=== PATIENT | male | born 1980 | race Caucasian/White ===

== ENCOUNTER → 2017-05-01 | Outpatient (CLI) | payer BC ==
[~2017-05-01] MED LIST: MULTTAB PO; PEGSOL6 PO; SENN15CH6 PO
[2017-05-01 12:34] LABS: BASO % 0.8 %; BASO ABS # 0.04 K/uL (0-0.2); COMPLETE YES; HEMATOCRIT 56.9 % (42-52); IG% 0.2 %; LYMPH % 26.3 %; MEAN CELL VOLUME 89.9 fL (80-100); MEAN CORPUSCULAR HGB CONC 34.4 g/dl (32-36); MEAN PLATELET VOLUME 9.8 fL (7.4-10.4); MONO % 10.7 %; PLATELET COUNT 262 K/uL (130-400); RED BLOOD COUNT 6.33 M/uL (4.7-6.1); WHITE BLOOD COUNT 4.94 K/uL (4.8-10.8)
[2017-05-01 13:08] LABS: ALT/SGPT 65 U/L (12-78); BLOOD UREA NITROGEN 16 mg/dl (7-18); BUN/CREATININE RATIO 11.6 (10-20); CARBON DIOXIDE 27 mmol/L (21-32); CHLORIDE 107 mmol/L (98-107); CHOLESTEROL 257 mg/dl (0-200); GLUCOSE 106 mg/dl (70-99); POTASSIUM 4.4 mmol/L (3.5-5.1); SODIUM 139 mmol/L (136-145); TRIGLYCERIDES 115 mg/dl (0-150); VERY LOW DENSITY LIPOPROT CALC 23 mg/dl
[2017-05-01 13:16] LABS: ALKALINE PHOSPHATASE 81 U/L (45-117); AST/SGOT 38 U/L (15-37); CHOLESTEROL/HDL RATIO 8.3; HDL CHOLESTEROL 31 mg/dl; LDL CHOLESTEROL CALCULATED 203 mg/dl
== END | disposition home or self-care (01) ==
LOC: C.LABPVFM 07:31
PROVIDERS: ATTEND Family Medicine
DX: R68.82 Decreased libido (principal); E29.1 Testicular hypofunction; E34.9 Endocrine disorder, unspecified; R53.82 Chronic fatigue, unspecified

== ENCOUNTER → 2017-06-04 | Outpatient (CLI) | payer BC ==
[2017-06-04 13:20] LABS: ESTIMATED AVERAGE GLUCOSE 108 mg/dl; HA1C FLAG Normal (Normal)
== END | disposition home or self-care (01) ==
LOC: C.LABPVFM 10:16
PROVIDERS: ATTEND Neuromusculoskeletal Medicine & OMM
DX: R73.09 Other abnormal glucose (principal)

== ENCOUNTER → 2017-09-01 | Outpatient (CLI) | payer BC ==
[2017-09-01 18:04] LABS: THYROID STIMULATING HORMONE 4.61 uIu/ml (0.300-4.500)
== END | disposition home or self-care (01) ==
LOC: C.LABPVFM 16:13
PROVIDERS: ATTEND Neuromusculoskeletal Medicine & OMM
DX: E03.9 Hypothyroidism, unspecified (principal)

== ENCOUNTER → 2017-11-28 | Outpatient (CLI) | payer BC ==
[2017-11-28 13:15] LABS: ALBUMIN 3.6 gm/dl (3.4-5.0); ALT/SGPT 59 U/L (12-78); BLOOD UREA NITROGEN 16 mg/dl (7-18); CALCIUM 9.1 mg/dl (8.5-10.1); CARBON DIOXIDE 26 mmol/L (21-32); CHOLESTEROL 218 mg/dl (0-200); CREATININE 1.36 mg/dl (0.60-1.40); GLUCOSE 80 mg/dl (70-99); POTASSIUM 4.3 mmol/L (3.5-5.1); SODIUM 134 mmol/L (136-145)
[2017-11-28 13:18] LABS: ALKALINE PHOSPHATASE 65 U/L (45-117); AST/SGOT 42 U/L (15-37); LDL CHOLESTEROL CALCULATED 161 mg/dl; TOTAL PROTEIN 7.5 gm/dl (6.4-8.2)
== END | disposition home or self-care (01) ==
LOC: C.LABPVFM 07:32
PROVIDERS: ATTEND Neuromusculoskeletal Medicine & OMM
DX: E78.5 Hyperlipidemia, unspecified (principal)

== ENCOUNTER 2018-10-09 12:01 | Inpatient (IN) ==
[2018-10-09] MEDS ORDERED: SODIUM CHLORIDE 0.9% 1000ML 1,000 ML IV SCH (12:45)
--- NOTE | 2018-10-09 13:13 | XRay Report ---
KUB HISTORY: Acute generalized abdominal pain with abdominal bloating bloating, ab pain COMPARISON: CT abdomen and pelvis 12/09/2014. FINDINGS: The bowel gas pattern is non-obstructive. There is no organomegaly. No renal calculi. No u reteral calculi. No pneumoperitoneum or pneumatosis. Subsequent bone island of the proximal right fem ur. No fracture. IMPRESSION: Nonobstructive bowel gas pattern. Electronically signed by: Oleg Gilliland M.D. 10/09/2018 1:12 PM
[2018-10-09 13:20] LABS: Basophils # (auto) 0.03 K/uL (0-0.2); Basophils % (auto) 0.3 %; Eosinophils # (auto) 0.14 K/uL (0-0.5); Eosinophils % (auto) 1.5 %; Hemoglobin 18.5 g/dL (14.0-18.0); Immature Granulocytes # (auto) 0.04 K/uL (0.00-0.02); Immature Granulocytes % (auto) 0.4 %; Lymphocytes # (auto) 1.87 K/uL (1.2-3.4); Lymphocytes % (auto) 19.8 %; Mean Corpuscular Hgb Conc 33.6 g/dL (32-36); Mean Corpuscular Volume 89.7 fL (80-100); Mean Platelet Volume 9.7 fL (7.4-10.4); Monocytes # (auto) 0.95 K/uL (0.11-0.59); Monocytes % (auto) 10.1 %; Neutrophils # (auto) 6.42 K/uL (1.4-6.5); Neutrophils % (auto) 67.9 %; Platelet Count 335 K/uL (130-400); RDW Coefficient of Variation 16.3 % (11.5-14.5); RDW Standard Deviation 53.3 fL (36.4-46.3); Red Blood Count 6.13 M/uL (4.7-6.1); White Blood Count 9.45 K/uL (4.8-10.8)
[2018-10-09 13:27] LABS: Appearance Urine Clear (Clear); Bacteria Urine Automated Negative (Negative); Color Urine Orange; Glucose Urine UA Trace (Negative); Ketones Urine Trace (Negative); Leukocyte Esterase Urine Trace (Negative); Nitrite Urine Positive (Negative); Protein Urine 2+ (Negative); Specific Gravity Urine 1.033 (1.000-1.030); Urobilinogen Urine Negative (Negative); pH Urine 5.5 (4.5-7.5)
[2018-10-09 13:29] LABS: Bilirubin Urine 1+ (Negative); Ictotest Urine Positive (Negative)
[2018-10-09 13:36] LABS: Albumin Level 3.4 gm/dl (3.4-5.0); BUN Creatinine Ratio 8.7 (10-20); Calcium 9.4 mg/dl (8.5-10.1); Creatinine Clr Calc Pharmacy 83.1 ml/min; Est GFR (African American) 63.4; Est GFR (Non-African American) 54.7; Potassium 4.4 mmol/L (3.5-5.1)
[2018-10-09 13:40] LABS: Albumin Globulin Ratio 0.8 (0.9-2); Bilirubin,Total 1.7 mg/dl (0.2-1); Globulin 4.3 gm/dl (2.5-4.0); Total Protein 7.7 gm/dl (6.4-8.2); Troponin I 0.018 ng/ml (0-0.045)
--- NOTE | 2018-10-09 16:27 | Ultrasound Report ---
BILIARY ULTRASOUND CLINICAL HISTORY: Upper abdominal pain COMPARISON STUDY: 12/09/2014 FINDINGS: Visualization the pancreas is limited due to overlying bowel gas shadowing. No definite barros creatic abnormalities are visualized. The liver appears sonographically normal. There is no ductal di latation. The common bile duct measures 3 mm. Several gallbladder calculi are delineated. The common bile duct measures 3 mm. There is no right-sided hydronephrosis. IMPRESSION: 1. Cholelithiasis. Contracted gallbladder. 2. No ductal dilatation. Electronically signed by: Elliot Juares M.D. 10/09/2018 4:25 PM
[2018-10-09] MEDS ORDERED: SODIUM CHLORIDE 0.9% 1000ML 1,000 ML IV ONE (16:59)
[2018-10-09] MEDS ORDERED: OPTIRAY 320 125ml IV PRN (16:59)
--- NOTE | 2018-10-09 17:32 | CT Scan Report ---
ABDOMEN AND PELVIS CT WITH IV CONTRAST CT DOSE: 1033.52 mGycm HISTORY: elevated lipase, generalized abdominal pain, neg GB US, LFTs up TECHNIQUE: Multiaxial CT images of the abdomen and pelvis were performed following the use of intrave nous contrast. A dose lowering technique was utilized adhering to the principles of ALARA. COMPARISON STUDY: Abdominal ultrasound 10/09/2018. Abdomen and pelvis CT 12/09/2014. FINDINGS: The lung bases are clear. No pneumoperitoneum. No pneumatosis. No fractures within the visu alized osseous structures. There are few small gallstones. The gallbladder is contracted. This is sim ilar to the prior study. The liver, pancreas, spleen, adrenal glands, and left kidney are unremarkabl e. There are few small stones within the right kidney with the largest measuring 4 mm. The right kidn ey enhances normally. No hydronephrosis. The bladder is not well-distended but appears unremarkable. Subcutaneous fat stranding/edema within the bilateral gluteal regions. No retroperitoneal lymphadenop athy. Mild calcified plaque within the normal caliber abdominal aorta. A few colonic diverticula. No evidence for diverticulitis. No bowel wall thickening or obstruction. Normal appendix. IMPRESSION: 1. No bowel wall thickening or obstruction. 2. Normal appendix. 3. Cholelithiasis. 4. Right-sided nephrolithiasis. No hydronephrosis. Electronically signed by: Matias Cabezas M.D. 10/09/2018 5:30 PM
--- NOTE | 2018-10-09 20:14 | Emergency Department Note ---
Entered by Ally Gonzalez acting as a scribe for History of Present Illness General Chief complaint: Abdominal Pain Stated complaint: GALLBLADDER, BLOATING Time Seen by Provider: 10/09/18 12:19 Source: patient Mode of arrival: ambulatory Limitations: no limitations History of Present Illness Onset (ago): day(s) 6 Location: abdomen Pain Consistency: + other (worsening) Quality: + other (bloating) Exacerbated By: + eating Associated symptoms: + nausea/vomiting and + other (The patient complains of bloating, vomiting, and nausea. He denies hematochezia, hematemesis, and urinary symptoms. ) The patient is a 38 year old male w/ PMHx of questionable history of prior liver dysfunction, who presents to the ED w/ CC of worsening abdominal pain beginning 6 days ago. He states that his pain is exacerbated with eating. The patient complains of bloating, vomiting, and nausea. He denies hematochezia , hematemesis, and urinary symptoms. The patient denies recent changes in diet. He notes that his last bowel movement was this morning. He notes that his bowel movements have been smaller and less frequent than normal. The patient states that when he belches it smells like rotten eggs. Home Medications Home Medications Medication Instructions Recorded Confirmed Type levothyroxine 50 mcg PO DAILY 10/09/18 10/09/18 History omega 1-tag-itj-fish oil [Fish Oil] 1 cap PO DAILY 10/09/18 10/09/18 History omeprazole 40 mg PO DAILY 10/09/18 10/09/18 History Allergies Allergy/AdvReac Type Severity Reaction Status Date / Time No Known Allergies Allergy Unverified 10/09/18 13:20 Past Med/Surg History Medical History Abdominal pain (Acute) Constipation (Acute) Elevated ALT measurement (Acute) Hepatitis (Acute) Social History Feels Safe at Home: Yes Smoking Status: Never smoker Preferred Language: [place] Communication Ability: Effective Visual Impairment: No Limitations Hearing Ability: Normal Review of Systems See HPI for pertinent positives & negatives. and A total of 10 systems reviewed and were otherwise negative Physical Exam Vital Signs Vital Signs - 24 hr 10/09/18 12:11 10/09/18 14:00 10/09/18 16:21 Temperature 37.1 C Temperature Source Oral Sepsis Recent Fever Within 48 Hours No Sepsis Action Taken by Nursing No Action Required Pulse Rate 116 H Pulse Rate [Finger] 96 H 90 Pulse Rhythm Regular Pulse Strength Normal Respiratory Rate 18 16 20 Respiratory Effort / Characteristics Non-Labored Respiratory Depth Normal Respiratory Pattern Regular Blood Pressure 185/90 H Blood Pressure [Right Arm] 196/98 H 147/85 H Blood Pressure Mean 121 Blood Pressure Mean [Right Arm] 130 105 Blood Pressure Position Sitting Pulse Oximetry 97 95 98 Oxygen Delivery Method Room Air Room Air Room Air 10/09/18 18:00 Temperature Temperature Source Sepsis Recent Fever Within 48 Hours Sepsis Action Taken by Nursing Pulse Rate Pulse Rate [Finger] 92 H Pulse Rhythm Pulse Strength Respiratory Rate 20 Respiratory Effort / Characteristics Respiratory Depth Respiratory Pattern Blood Pressure Blood Pressure [Right Arm] 169/94 H Blood Pressure Mean Blood Pressure Mean [Right Arm] 119 Blood Pressure Position Pulse Oximetry 99 Oxygen Delivery Method Room Air GENERAL: Well appearing, well nourished, NAD, non-toxic. EYE EXAM: Normal conjunctiva. PERRL, no anisocoria and EOM's grossly intact w/o pains. OROPHARYNX: No exudate, posterior pharynx is clear, no tonsillar/uvular deviation or swelling. NECK: Supple, no nuchal rigidity, no adenopathy, non-tender. No signs of meningismus. LUNGS: Clear to auscultation bilaterally. Normal chest wall mechanics. HEART: NSR, no MRG. ABDOMEN: Abdomen soft, upper abdominal pain, normo-active bowel sounds, no masses, no rebound or guarding. Negative damico's sign. No lower abdominal pain. Mild distention. BACK: No CVA TTP. SKIN: No rashes and no bruising. UPPER EXTREMITIES: Upper extremities are grossly normal. LOWER EXTREMITIES: No pitting edema. No calf pain. NEURO EXAM: Cranial nerves II-XII grossly intact, normal speech, 5/5 strength in bilateral upper and lower extremities, no sensory deficits, moves all 4 extremities on command w/o issue. Course 1234: Past medical records reviewed. The patient was evaluated in room B2, and a complete history and physical examination were performed. 1406: I updated the patient. Upon reevaluation, the patient is resting comfortably. He is waiting for his US. 1748: I reviewed the patient's case with Dr. Yury Wilkerson. She states [facility] and can be completed as an outpatient if the patient desires, with strict return precautions. She states that he can also stay and get it done now. 1950: I reviewed the patient's case with Dr. Ruby Solis- [facility]. He will evaluate the patient for further management. Consultations Consultation #1: [id number]: I reviewed the patient's case with Dr. Yury Wilkerson. He states that [facility] is the appropriate study and can be completed as an outpatient if the patient desires, with strict return precautions. He states that he can also stay and get it done now if it is available to obtain. Time: 17:48 Consultation #2: [id number]: I reviewed the patient's case with Dr. Ruby Solis- [facility]. He will evaluate the patient for further management. Time: 19:50 Administered Medications Ioversol (Optiray 320 125ml) 116 ml IV ONCE PRN PRN Reason: Interaction Checking Stop: 10/13/18 16:58 Last Admin: 10/09/18 17:00 Dose: 116 ml Discontinued Medications Sodium Chloride (Nss 1000ml) 1,000 mls @ 999 mls/hr IV .Q1H1M SHAKIR Stop: 10/09/18 13:45 Last Infusion: 10/09/18 13:58 Dose: 0 mls/hr Admin: 10/09/18 13:04 Dose: 999 mls/hr Sodium Chloride (Nss 1000ml) 1,000 mls @ 999 mls/hr IV .Q1H1M ONE Stop: 10/09/18 17:59 Last Infusion: 10/09/18 17:33 Dose: 0 mls/hr Admin: 10/09/18 17:07 Dose: 999 mls/hr Medical Decision Making Medical Records Attestation: I reviewed the patient's medical records. Home Medications Current Medication List: was personally reviewed by me Laboratory Data Attestation: I reviewed the patient's lab results. Result diagrams: 10/09/18 13:00 10/09/18 13:00 Lab Results 10/09/18 10/09/18 10/09/18 Range/Units 13:00 13:00 13:00 WBC 9.45 (4.8-10.8) K/uL RBC 6.13 H (4.7-6.1) M/uL Hgb 18.5 H (14.0-18.0) g/dL Hct 55.0 H (42-52) % MCV 89.7 (80-100) fL MCH 30.2 (25-34) pg MCHC 33.6 (32-36) g/dL RDW Std Deviation 53.3 H (36.4-46.3) fL RDW Coeff of Kimberly 16.3 H (11.5-14.5) % Plt Count 335 (130-400) K/uL MPV 9.7 (7.4-10.4) fL Immature Gran % (Auto) 0.4 % Neut % (Auto) 67.9 % Lymph % (Auto) 19.8 % [place] % (Auto) 10.1 % Eos % (Auto) 1.5 % Baso % (Auto) 0.3 % Immature Gran # (Auto) 0.04 H (0.00-0.02) K/uL Neut # (Auto) 6.42 (1.4-6.5) K/uL Lymph # (Auto) 1.87 (1.2-3.4) K/uL [place] # (Auto) 0.95 H (0.11-0.59) K/uL Eos # (Auto) 0.14 (0-0.5) K/uL Baso # (Auto) 0.03 (0-0.2) K/uL Sodium 136 (136-145) mmol/L Potassium 4.4 (3.5-5.1) mmol/L Chloride 99 (98-107) mmol/L Carbon Dioxide 29 (21-32) mmol/L Anion Gap 8.0 (3-11) BUN 14 (7-18) mg/dl Creatinine 1.57 H (0.6-1.4) mg/dl Est Cr Clr Drug Dosing 83.1 ml/min Est GFR ( Amer) 63.4 Est GFR (Non-Af Amer) 54.7 BUN/Creatinine Ratio 8.7 L (10-20) Glucose 105 H (70-99) mg/dl Calcium 9.4 (8.5-10.1) mg/dl Total Bilirubin 1.7 H (0.2-1) mg/dl AST 128 H (15-37) U/L ALT 460 H (12-78) U/L Alkaline Phosphatase 62 (45-117) U/L Troponin I 0.018 (0-0.045) ng/ml Total Protein 7.7 (6.4-8.2) gm/dl Albumin 3.4 (3.4-5.0) gm/dl Globulin 4.3 H (2.5-4.0) gm/dl Albumin/Globulin Ratio 0.8 L (0.9-2) Lipase 876 H (73-393) U/L Urine Color Hendricks Urine Appearance Clear (Clear) Urine pH 5.5 (4.5-7.5) Ur Specific Helen 1.033 H (1.000-1.030) Urine Protein 2+ H (Negative) Urine Glucose (UA) Trace H (Negative) Urine Ketones Trace H (Negative) Urine Blood Trace H (Negative) Urine Nitrite Positive H (Negative) Urine Bilirubin 1+ H (Negative) Urine Urobilinogen Negative (Negative) Ur Leukocyte Esterase Trace H (Negative) Urine WBC (Auto) 1-5 (0-5) /hpf Urine RBC (Auto) 5-10 H (0-4) /hpf U Hyaline Cast (Auto) 5-10 H (0-5) /lpf U Epithel Cells (Auto) 5-10 H (0-5) /lpf Urine Bacteria (Auto) Negative (Negative) Imaging Data Radiologist's Impression: Radiology results as stated below per my review and the radiologist's interpretation: ABDOMEN AND PELVIS CT WITH IV CONTRAST CT DOSE: 1033.52 mGycm HISTORY: elevated lipase, generalized abdominal pain, neg GB US, LFTs up TECHNIQUE: Multiaxial CT images of the abdomen and pelvis were performed following the use of intravenous contrast. A dose lowering technique was utilized adhering to the principles of ALARA. COMPARISON STUDY: Abdominal ultrasound 10/09/2018. Abdomen and pelvis CT 2014. FINDINGS: The lung bases are clear. No pneumoperitoneum. No pneumatosis. No fractures within the visualized osseous structures. There are few small gallstones. The gallbladder is contracted. This is similar to the prior study. The liver, pancreas, spleen, adrenal glands, and left kidney are unremarkable. There are few small stones within the right kidney with the largest measuring 4 mm. The right kidney enhances normally. No hydronephrosis. The bladder is not well-distended but appears unremarkable. Subcutaneous fat stranding/edema within the bilateral gluteal regions. No retroperitoneal lymphadenopathy. Mild calcified plaque within the normal caliber abdominal aorta. A few colonic diverticula. No evidence for diverticulitis. No bowel wall thickening or obstruction. Normal appendix. IMPRESSION: 1. No bowel wall thickening or obstruction. 2. Normal appendix. 3. Cholelithiasis. 4. Right-sided nephrolithiasis. No hydronephrosis. Electronically signed by: Matias Cabezas M.D. 10/09/2018 5:30 PM Dictated: 10/09/18 1720 Transcribed: 10/09/18 1720 BILIARY ULTRASOUND CLINICAL HISTORY: Upper abdominal pain COMPARISON STUDY: 12/09/2014 FINDINGS: Visualization the pancreas is limited due to overlying bowel gas shadowing. No definite pancreatic abnormalities are visualized. The liver appears sonographically normal. There is no ductal dilatation. The common bile duct measures 3 mm. Several gallbladder calculi are delineated. The common bile duct measures 3 mm. There is no right-sided hydronephrosis. IMPRESSION: 1. Cholelithiasis. Contracted gallbladder. 2. No ductal dilatation. Electronically signed by: Elliot Juares M.D. 10/09/2018 4:25 PM Dictated: 10/09/18 1624 Transcribed: 10/09/18 1624 KUB HISTORY: Acute generalized abdominal pain with abdominal bloating bloating, ab pain COMPARISON: CT abdomen and pelvis 12/09/2014. FINDINGS: The bowel gas pattern is non-obstructive. There is no organomegaly. No renal calculi. No ureteral calculi. No pneumoperitoneum or pneumatosis. Subsequent bone island of the proximal right femur. No fracture. IMPRESSION: Nonobstructive bowel gas pattern. Electronically signed by: Oleg Gilliland M.D. 10/09/2018 1:12 PM Dictated: 10/09/18 1305 Transcribed: 10/09/18 1305 ECG Data Attestation: I personally reviewed and interpreted this ECG as follows: Indication: tachycardia Rate (beats per minute): 101 Rhythm: sinus tachycardia Findings: + other (normal intervals, normal axis, T wave flattening. ) Blood Pressure Blood Pressure Findings: Normal blood pressure MDM Narrative The patient is a 38 year old white male w/ PMHx of hepatitis, who presents to the ED w/ CC of worsening abdominal pain beginning 6 days ago. Differential diagnosis: Etiologies such as appendicitis, diverticulitis, PUD, biliary pathology, UTI, pancreatitis, obstruction, mesenteric ischemia, aortic pathology, infections, inflammatory bowel disease, renal colic, as well as others were entertained. Patient was seen and evaluated at the bedside. Patient was complaining of some abdominal discomfort bloating and had worsening abdominal discomfort over the last 6-7 days. Patient has had bloating for several months. The patient denies any chronic alcohol use. The patient does have some mild abdominal discomfort but is not peritonitic. The patient did have blood work completed but declined any pain or nausea medication at this time. The patient was given some IV fluids. The patient's blood work did show a normal white count. The patient's H&H was somewhat elevated which is likely secondary to hemoconcentration secondary to dehydration. Patient's kidney function did show mild elevation in creatinine 1 3-1 5. The patient had been given IV fluids. The patient's LFTs were somewhat elevated with a greater ALT to AST ratio. T bili was mildly elevated. The patient's lipase was over 800. These were new results. EKG unremarkable. Troponin not elevated. Less likely ACS or referred chest pain. Patient's gallbladder ultrasound showed a contracted gallbladder and cholelithiasis without evidence of cholecystitis. CBD was within normal limits. Given this CT abdomen pelvis was ordered. This was unremarkable. I did speak with the on-call service station operator and was discussing further additional options given the patient is a negative gallbladder ultrasound with elevated LFTs T bili and associated lipase without evidence of pancreatitis on CT. He agreed with an MRCP. I did discuss with the patient and stated that we may not be able to get it currently and I did offer further outpatient workup and follow-up. Patient family member would prefer to proceed with getting the testing completed now. I did speak with the on-call hospitalist who agreed to further evaluate and treat the patient. MRCP was ordered. Patient was admitted to the medicine service. Impression & Plan Biliary colic, Elevated lipase, Transaminitis Discharge Plan Visit Data Chief Complaint: Abdominal Pain Stated Complaint: GALLBLADDER, BLOATING ED Provider: Jose Ibarra Discharge Problem: Biliary colic, Elevated lipase, Transaminitis Patient Disposition: Being Evaluated by Hospitalist Forms Stand Alone Forms: Call Back Authorization, [facility] Pres[facility] Prescriptions: No Action omeprazole 40 mg Capsule,Delayed Release(Dr/Ec) 40 mg PO DAILY RF: 0 levothyroxine 50 mcg Tablet 50 mcg PO DAILY RF: 0 omega 4-mct-cmv-fish oil [Fish Oil] 1,000 mg (120 mg-180 mg) Capsule 1 cap PO DAILY RF: 0 Referrals Referrals: Sukhwinder Cazares, [Primary Care Provider] - The scribe's documentation has been prepared under my direction and personally reviewed by me in its entirety. I confirm that the note above accurately reflects all work, treatment, procedures, and medical decision making performed by me.
--- NOTE | 2018-10-09 21:44 | History & Physical Report ---
Date of Service October 09, 2018 Assessment & Plan (1) Biliary colic: Biliary colic/abnormal LFTs/elevated lipase/3 mm gallstones noted in gallbladder/neutrophilic leukocytosis-- Admit to nonmonitored bed. NPO. Pantoprazole 40 mg IV daily. Zofran 4 mg IV every 6 hours as needed. Cipro 400 mg IV every 12 hours Morphine sulfate 2 mg IV every 3 hours as needed. NSS + KCl 20 mEq at 100 mils per hour. Repeat CBC with differential, chemistry profile and lipase in the a.m. Consult gastroenterology and general surgery. Present on Admission?: Yes (2) Abnormal LFTs: See above Present on Admission?: Yes (3) Elevated lipase: See above Present on Admission?: Yes (4) Acute kidney injury (nontraumatic): Secondary to dehydration associated with nausea and vomiting and overall decreased oral intake. Creatinine 1.57 upon admission. Rehydrate with IV fluids. Repeat laboratories in the a.m. Present on Admission?: Yes History of Present Illness Chief Complaint: The patient presents to the emergency department with worsening abdominal pain, bloating with nausea and vomiting over the past 24 hours, that he initially experienced about 1 week ago. Primary Care Provider: Sukhwinder Phillips, The patient is a 38-year-old male who presents to the emergency department with return of GI symptoms including abdominal discomfort, bloating, nausea and vomiting initially present 1 week ago, and had resolved spontaneously, but recurred and worsened over the past 24 hours. He has not had any recent travels or sick exposures. He reports that eating makes the discomfort worse. Upon retrospection, patient thinks he may have had some indigestion on and off over the past few months. Allergies Allergy/AdvReac Type Severity Reaction Status Date / Time No Known Allergies Allergy Unverified 10/09/18 13:20 Home Medications Home Medications Medication Instructions Recorded Confirmed Type levothyroxine 50 mcg PO DAILY 10/09/18 10/09/18 History omega 8-svy-edg-fish oil [Fish Oil] 1 cap PO DAILY 10/09/18 10/09/18 History omeprazole 40 mg PO DAILY 10/09/18 10/09/18 History Past Med/Surg History Medical History Abdominal pain (Acute) Constipation (Acute) Elevated ALT measurement (Acute) Hepatitis (Acute) Social History Current Living Situation: Spouse and Other Current Living Situation Comment: spouse, children Other Information That Helps Us Care for You: No Feels Safe at Home: Yes Safety Concerns: Feels Safe At This Time Smoking Status: Never smoker Hx Alcohol Use: Yes Alcohol type: hard liquor Alcohol Intake Frequency: a few times a month Hx Substance Use: No Beliefs That Will Affect Care: None Preferred Language: Tamaz[place] Communication Ability: Effective Underwriting Analyst Required: No Review of Systems The patient denies chest pain, palpitations, shortness of breath, dyspnea on exertion, cough, lower extremity swelling, sore throat, fevers, chills, sweats, diarrhea , constipation, blood in urine or stool, dysuria, urinary frequency or urgency, lightheadedness, dizziness, headache, memory loss, loss of consciousness, rash, abnormal bruising or bleeding, imbalance, focal or generalized weakness, numbness or tingling in arms or legs, generalized arthralgias or myalgias, back or neck pain, or night sweats. The review of systems is otherwise negative other than for that already noted above, and at least 10 systems have been reviewed. Physical Exam 2 Vital Signs (Past 24 Hours): Last Vital Signs Temp 36.5 C 10/09/18 21:31 Pulse 93 H 10/09/18 21:31 Resp 16 10/09/18 21:31 BP 175/92 H 10/09/18 21: Pulse Ox 94 10/09/18 21:31 Physical Exam: The patient is awake, alert and oriented 3, well developed and well nourished, normocephalic and atraumatic, lying in bed and in no acute distress. HEENT--PERRL, EOMI, mucous membranes and oropharynx dry. Neck--supple. No JVD. No bruits. Thyroid normal, trachea midline, no adenopathy. Heart--normal S1 and S2. No murmurs, rubs or gallops. Lungs--clear bilaterally, no respiratory distress, no accessory muscle use. Abdomen--normal bowel sounds and soft. Nontender. Nondistended. Extremities--no cyanosis or clubbing. No edema. There are good distal pulses b/ l. Dermatologic--normal skin turgor, normal color, no abnormal lymph nodes, no rash. Neurologic--cranial nerves II through XII grossly intact. Rheumatologic--normal range of motion. Psychiatric--normal affect. Results & Data Laboratory Results Laboratory Results WBC 9.45 K/uL (4.8-10.8) 10/09/18 13:00 RBC 6.13 M/uL (4.7-6.1) H 10/09/18 13:00 Hgb 18.5 g/dL (14.0-18.0) H 10/09/18 13:00 Hct 55.0 % (42-52) H 10/09/18 13:00 MCV 89.7 fL (80-100) 10/09/18 13:00 MCH 30.2 pg (25-34) 10/09/18 13:00 MCHC 33.6 g/dL (32-36) 10/09/18 13:00 RDW Std Deviation 53.3 fL (36.4-46.3) H 10/09/18 13:00 RDW Coeff of Kimberly 16.3 % (11.5-14.5) H 10/09/18 13:00 Plt Count 335 K/uL (130-400) 10/09/18 13:00 MPV 9.7 fL (7.4-10.4) 10/09/18 13:00 Immature Gran % (Auto) 0.4 % 10/09/18 13:00 Neut % (Auto) 67.9 % 10/09/18 13:00 Lymph % (Auto) 19.8 % 10/09/18 13:00 [place] % (Auto) 10.1 % 10/09/18 13:00 Eos % (Auto) 1.5 % 10/09/18 13:00 Baso % (Auto) 0.3 % 10/09/18 13:00 Immature Gran # (Auto) 0.04 K/uL (0.00-0.02) H 10/09/18 13:00 Neut # (Auto) 6.42 K/uL (1.4-6.5) 10/09/18 13:00 Lymph # (Auto) 1.87 K/uL (1.2-3.4) 10/09/18 13:00 [place] # (Auto) 0.95 K/uL (0.11-0.59) H 10/09/18 13:00 Eos # (Auto) 0.14 K/uL (0-0.5) 10/09/18 13:00 Baso # (Auto) 0.03 K/uL (0-0.2) 10/09/18 13:00 Sodium 136 mmol/L (136-145) 10/09/18 13:00 Potassium 4.4 mmol/L (3.5-5.1) 10/09/18 13:00 Chloride 99 mmol/L (98-107) 10/09/18 13:00 Carbon Dioxide 29 mmol/L (21-32) 10/09/18 13:00 Anion Gap 8.0 (3-11) 10/09/18 13:00 BUN 14 mg/dl (7-18) 10/09/18 13:00 Creatinine 1.57 mg/dl (0.6-1.4) H 10/09/18 13:00 Est Cr Clr Drug Dosing 83.1 ml/min 10/09/18 13:00 Est GFR ( Amer) 63.4 10/09/18 13:00 Est GFR (Non-Af Amer) 54.7 10/09/18 13:00 BUN/Creatinine Ratio 8.7 (10-20) L 10/09/18 13:00 Glucose 105 mg/dl (70-99) H 10/09/18 13:00 Calcium 9.4 mg/dl (8.5-10.1) 10/09/18 13:00 Total Bilirubin 1.7 mg/dl (0.2-1) H 10/09/18 13:00 AST 128 U/L (15-37) H 10/09/18 13:00 ALT 460 U/L (12-78) H 10/09/18 13:00 Alkaline Phosphatase 62 U/L (45-117) 10/09/18 13:00 Troponin I 0.018 ng/ml (0-0.045) 10/09/18 13:00 Total Protein 7.7 gm/dl (6.4-8.2) 10/09/18 13:00 Albumin 3.4 gm/dl (3.4-5.0) 10/09/18 13:00 Globulin 4.3 gm/dl (2.5-4.0) H 10/09/18 13:00 Albumin/Globulin Ratio 0.8 (0.9-2) L 10/09/18 13:00 Lipase 876 U/L (73-393) H 10/09/18 13:00 Urine Color [place] 10/09/18 13:00 Urine Appearance Clear (Clear) 10/09/18 13:00 Urine pH 5.5 (4.5-7.5) 10/09/18 13:00 Ur Specific [place] 1.033 (1.000-1.030) H 10/09/18 13:00 Urine Protein 2+ (Negative) H 10/09/18 13:00 Urine Glucose (UA) Trace (Negative) H 10/09/18 13:00 Urine Ketones Trace (Negative) H 10/09/18 13:00 Urine Blood Trace (Negative) H 10/09/18 13:00 Urine Nitrite Positive (Negative) H 10/09/18 13:00 Urine Bilirubin 1+ (Negative) H 10/09/18 13:00 Urine Urobilinogen Negative (Negative) 10/09/18 13:00 Ur Leukocyte Esterase Trace (Negative) H 10/09/18 13:00 Urine WBC (Auto) 1-5 /hpf (0-5) 10/09/18 13:00 Urine RBC (Auto) 5-10 /hpf (0-4) H 10/09/18 13:00 U Hyaline Cast (Auto) 5-10 /lpf (0-5) H 10/09/18 13:00 U Epithel Cells (Auto) 5-10 /lpf (0-5) H 10/09/18 13:00 Urine Bacteria (Auto) Negative (Negative) 10/09/18 13:00 Diagnostic Findings [place], [place] [phone] Ultrasound Report Patient: WILLA PHILLIPS OAdmit Date: 10/09/18 MR#: [id number]: [id number] [facility] Acct ID:[id number]: Date: 1980[facility] Zip: [place] [address] Age: 38Location: ED Sex: M Room/Bed: Att Phy: Diagnosis: GALLBLADDER, BLOATING Alcira Phy: Sukhwinder Phillips, DOService Date: 10/09/18 Fam Phy: Interpreting Phy: Elliot Juares MD Admit Phy: Ordering Phy: Fred, Jose D., M.D. cc: ~ BILIARY ULTRASOUND CLINICAL HISTORY: Upper abdominal pain COMPARISON STUDY: 12/09/2014 FINDINGS: Visualization the pancreas is limited due to overlying bowel gas shadowing. No definite pancreatic abnormalities are visualized. The liver appears sonographically normal. There is no ductal dilatation. The common bile duct measures 3 mm. Several gallbladder calculi are delineated. The common bile duct measures 3 mm. There is no right-sided hydronephrosis. IMPRESSION: 1. Cholelithiasis. Contracted gallbladder. 2. No ductal dilatation. Electronically signed by: Elliot Juares M.D. 10/09/2018 4:25 PM [place], [place] [phone] XRay Report Patient: WILLA PHILLIPS OAdmit Date: 10/09/18 MR#: [id number]: [id number] [facility] Acct ID:[id number]: Date: 1980[facility] Zip: [place] [address] Age: 38Location: ED Sex: M Room/Bed: Att Phy: Diagnosis: GALLBLADDER, BLOATING Alcira Phy: Sukhwinder Phillips, DOService Date: 10/09/18 Fam Phy: Interpreting Phy: Franklin Gilliland Admit Phy: Ordering Phy: Jose Ibarra M.D. cc: ~ KUB HISTORY: Acute generalized abdominal pain with abdominal bloating bloating, ab pain COMPARISON: CT abdomen and pelvis 12/09/2014. FINDINGS: The bowel gas pattern is non-obstructive. There is no organomegaly. No renal calculi. No ureteral calculi. No pneumoperitoneum or pneumatosis. Subsequent bone island of the proximal right femur. No fracture. IMPRESSION: Nonobstructive bowel gas pattern. Electronically signed by: Oleg Gilliland M.D. 10/09/2018 1:12 PM Dictated: 10/09/18 1305 Transcribed: 10/09/18 1305 [place], [place] [phone] CT Scan Report Patient: WILLA PHILLIPS OAdmit Date: 10/09/18 MR#: [id number]: [id number] [facility] Acct ID:[id number]: Date: 1980[facility] Zip: [place] [address] Age: 38Location: ED Sex: M Room/Bed: Att Phy: Diagnosis: GALLBLADDER, BLOATING Alcira Phy: Phillips Sukhwinder GarrettNupur, DOService Date: 10/09/18 [facility] Phy: Interpreting Phy: Matias Cabezas MD Admit Phy: Ordering Phy: Jose Ibarra M.D. cc: ~ ABDOMEN AND PELVIS CT WITH IV CONTRAST CT DOSE: 1033.52 mGycm HISTORY: elevated lipase, generalized abdominal pain, neg GB US, LFTs up TECHNIQUE: Multiaxial CT images of the abdomen and pelvis were performed following the use of intravenous contrast. A dose lowering technique was utilized adhering to the principles of ALARA. COMPARISON STUDY: Abdominal ultrasound 10/09/2018. Abdomen and pelvis CT 2014. FINDINGS: The lung bases are clear. No pneumoperitoneum. No pneumatosis. No fractures within the visualized osseous structures. There are few small gallstones. The gallbladder is contracted. This is similar to the prior study. The liver, pancreas, spleen, adrenal glands, and left kidney are unremarkable. There are few small stones within the right kidney with the largest measuring 4 mm. The right kidney enhances normally. No hydronephrosis. The bladder is not well-distended but appears unremarkable. Subcutaneous fat stranding/edema within the bilateral gluteal regions. No retroperitoneal lymphadenopathy. Mild calcified plaque within the normal caliber abdominal aorta. A few colonic diverticula. No evidence for diverticulitis. No bowel wall thickening or obstruction. Normal appendix. IMPRESSION: 1. No bowel wall thickening or obstruction. 2. Normal appendix. 3. Cholelithiasis. 4. Right-sided nephrolithiasis. No hydronephrosis. Electronically signed by: Matias Cabezas M.D. 10/09/2018 5:30 PM Dictated: 10/09/18 1720 Transcribed: 10/09/18 1720 [place], [place] [phone] Magnetic Resonance Report Patient: WILLA PHILLIPS OAdmit Date: 10/09/18 MR#: [id number]: [id number] [facility] Acct ID:[id number]: Date: 1980[facility] Zip: [place] [address] Age: 38Location: 3W Sex: M Room/Bed: [facility] Att Phy: Remberto Beltran M.D.Diagnosis: GALLSTONE PANCREATITIS,ACUTE CHOLECYSTITIS Alcira Phy: Sukhwinder Phillips, DOService Date: 10/09/18 Fam Phy: Interpreting Phy: Matias Cabezas MD Admit Phy: Remberto Beltran M.D. Ordering Phy: Jose Ibarra M.D. cc: ~ MR MRCP HISTORY: elevated LFTs/lipase, gallstones, neg GB US, - CT TECHNIQUE: MRCP the abdomen was performed without the use of intravenous contrast according to standard department protocol. COMPARISON STUDY: Abdomen and pelvis CT and abdominal ultrasound 10/09/2018. FINDINGS: The lung bases are clear. The liver, spleen, adrenal glands, and right kidney are unremarkable. There are few small left peripelvic renal cysts. No hydronephrosis. No retroperitoneal lymphadenopathy. Normal caliber abdominal aorta. Normal signal intensity within the pancreas. No peripancreatic edema to suggest acute pancreatitis. The common bile duct is normal in course and caliber and measures 3 mm in diameter. No filling defects within the common bile duct. No intrahepatic bile duct dilatation. The main pancreatic duct is difficult to assess due to its small caliber but is likely within normal limits. No gallbladder wall thickening. There are few small gallstones measuring up to 3 mm. IMPRESSION: 1. Cholelithiasis. No gallbladder wall thickening. 2. The common bile duct and main pancreatic duct are normal in course and caliber. No filling defects within the common bile duct to suggest choledocholithiasis. Electronically signed by: Matias Cabezas M.D. 10/09/2018 10:45 PM Dictated: 10/09/182239 Transcribed: 10/09/182239 Code Status & VTE Plan Code Status Full code VTE Prophylaxis Plan VTE Prophylaxis will be ordered: Yes
[2018-10-09] MEDS ORDERED: MoRPHine SULFATE 2 MG/ML CARP IV PRN (21:50)
[2018-10-09] MEDS ORDERED: ONDANSETRON INJ 2 MG/ML 2 ML VIAL IV PRN (21:50)
[2018-10-09] MEDS: CIPROFLOXACIN 400 MG/200 ML BAG IV SCH (22:47)
[2018-10-09] MEDS: NSS + 20MEQ KCL 20 MEQ/1,000 ML BAG IV SCH (22:47)
--- NOTE | 2018-10-09 22:48 | Magnetic Resonance Report ---
MR MRCP HISTORY: elevated LFTs/lipase, gallstones, neg GB US, - CT TECHNIQUE: MRCP the abdomen was performed without the use of intravenous contrast according to [facility] department protocol. COMPARISON STUDY: Abdomen and pelvis CT and abdominal ultrasound 10/09/2018. FINDINGS: The lung bases are clear. The liver, spleen, adrenal glands, and right kidney are unremarka ble. There are few small left peripelvic renal cysts. No hydronephrosis. No retroperitoneal lymphaden opathy. Normal caliber abdominal aorta. Normal signal intensity within the pancreas. No peripancreati c edema to suggest acute pancreatitis. The common bile duct is normal in course and caliber and measu res 3 mm in diameter. No filling defects within the common bile duct. No intrahepatic bile duct dilat ation. The main pancreatic duct is difficult to assess due to its small caliber but is likely within normal limits. No gallbladder wall thickening. There are few small gallstones measuring up to 3 mm. IMPRESSION: 1. Cholelithiasis. No gallbladder wall thickening. 2. The common bile duct and main pancreatic duct are normal in course and caliber. No filling defects within the common bile duct to suggest choledocholithiasis. Electronically signed by: Matias Cabezas M.D. 10/09/2018 10:45 PM
[2018-10-10 07:20] LABS: Basophils # (auto) 0.03 K/uL (0-0.2); Basophils % (auto) 0.4 %; Eosinophils # (auto) 0.17 K/uL (0-0.5); Eosinophils % (auto) 2.1 %; Hematocrit (blood only) 54.4 % (42-52); Hemoglobin 18.2 g/dL (14.0-18.0); Immature Granulocytes # (auto) 0.03 K/uL (0.00-0.02); Immature Granulocytes % (auto) 0.4 %; Lymphocytes # (auto) 1.78 K/uL (1.2-3.4); Lymphocytes % (auto) 22.5 %; Mean Corpuscular Hgb Conc 33.5 g/dL (32-36); Mean Platelet Volume 9.4 fL (7.4-10.4); Monocytes % (auto) 6.3 %; Neutrophils % (auto) 68.3 %; Platelet Count 317 K/uL (130-400); RDW Coefficient of Variation 16.4 % (11.5-14.5); RDW Standard Deviation 53.5 fL (36.4-46.3); Red Blood Count 6.11 M/uL (4.7-6.1); White Blood Count 7.91 K/uL (4.8-10.8)
[2018-10-10 07:36] LABS: INR 1.1 (0.9-1.1); Partial Thromboplastin Time 25.6 Seconds (21.0-31.0); Prothrombin Time 10.6 Seconds (9.0-12.0)
--- NOTE | 2018-10-10 07:36 | History & Physical Report ---
Date of Service October 10, 2018 Assessment & Plan (1) Abnormal LFTs: (2) Cholelithiasis: Patient presenting for evaluation of intermittent epigastric pain associated with nausea and bloating. His imaging does seem to indicate cholelithiasis on both his ultrasound and MRCP. His bilirubin was 1.7 yesterday and still pending this morning. His MRI is reassuring as there is no obvious evidence of a stone within the common bile duct. Given the clinical scenario it appears that the patient most likely has passed a stone through his common duct. Other possibilities include a viral infection however given the patient's description of his symptoms I suspect this is less likely. Recommendations Await morning labs If AST and ALT are improving with suggest evaluation by general surgery to determine if cholecystectomy should be offered History of Present Illness Chief Complaint: Abdominal pain and bloating Primary Care Provider: Sukhwinder Cazares, The patient presented to the emergency room yesterday afternoon for evaluation of persistent abdominal discomfort, bloating, nausea and occasional emesis. The symptoms have been ongoing for several weeks and given persistence he called his primary care doctor for advice. They suggested an ER evaluation as there was no availability in their outpatient clinic. He reports having intermittent abdominal discomfort typically localizing to the right upper quadrant associated with nausea and several episodes of emesis. He notes that over the last 24 hours the symptoms seem to have improved. He underwent lab testing which showed elevation of his AST and ALT. Imaging showed evidence of cholelithiasis on ultrasound and MRI. The bile duct appears to be within normal limits on both studies. The patient notes that his bowel habits have been somewhat irregular but he denies having alcon-colored stools or diarrhea. The patient has no surgical history and uses no herbal supplements. He has no recent travel outside the [place] and has had no prior blood transfusions patient does have a number of tattoos which were placed a professional [employer]. There is no history of IV drug abuse or significant alcohol use. Allergies Allergy/AdvReac Type Severity Reaction Status Date / Time No Known Allergies Allergy Unverified 10/09/18 13:20 Home Medications Home Medications Medication Instructions Recorded Confirmed Type levothyroxine 50 mcg PO DAILY 10/09/18 10/09/18 History omega 3-spj-mxb-fish oil [Fish Oil] 1 cap PO DAILY 10/09/18 10/09/18 History omeprazole 40 mg PO DAILY 10/09/18 10/09/18 History Past Med/Surg History Medical History Abdominal pain (Acute) Constipation (Acute) Elevated ALT measurement (Acute) Hepatitis (Acute) Social History Current Living Situation: Spouse and Other Current Living Situation Comment: spouse, children Other Information That Helps Us Care for You: No Feels Safe at Home: Yes Safety Concerns: Feels Safe At This Time Smoking Status: Never smoker Hx Alcohol Use: Yes Alcohol type: hard liquor Alcohol Intake Frequency: a few times a month Hx Substance Use: No Beliefs That Will Affect Care: None Preferred Language: German Communication Ability: Effective Crude Oil Driver Required: No Review of Systems Constitutional: no sweats and no weight loss Eyes: no diplopia Ear, Nose, Mouth, Throat: no mouth lesions, no change in voice and no pain with swallowing Respiratory: no change in sputum and no hemoptysis Cardiovascular: no chest pain with activity Gastrointestinal: + abdominal pain, + bloating, + nausea, + vomiting, + cramping and + change in stools; no pain with swallowing and no melena Genitourinary (Male): no urinary frequency Musculoskeletal: no deformity Integumentary: no rash Neurologic: no falls Psychiatric: no hopelessness and no suicidal ideation Endocrine: no polydipsia Hematologic / Lymphatic: no coagulopathy and no unexplained weight loss Allergy / Immunological: no cough Physical Exam 2 Vital Signs (Past 24 Hours): Last Vital Signs Temp 36.6 C 10/10/18 07:01 Pulse 89 10/10/18 07:01 Resp 18 10/10/18 07:01 BP 160/89 H 10/10/18 07:01 Pulse Ox 95 10/10/18 07:01 Constitutional: WD/WN, vitals as above Eyes: PERRL, conjunctivae normal, anicteric sclerae No icterus noted Neck: trachea midline, no thyromegaly Respiratory: normal respiratory effort, lungs clear to auscultation Cardiovascular: RRR, no murmur, no edema Heart Sounds: no murmur Gastrointestinal (Abdomen): Percussion/Palpation: + abdomen tender and abdomen soft Mild RUQ tenderness (no rebound tenderness) Musculoskeletal: Head/Neck/Chest: neck supple Skin: no rashes, warm and dry Results & Data Laboratory Results Laboratory Results - last 24 hr 10/09/18 10/09/18 10/09/18 13:00 13:00 13:00 WBC 9.45 RBC 6.13 H Hgb 18.5 H Hct 55.0 H MCV 89.7 MCH 30.2 MCHC 33.6 RDW Std Deviation 53.3 H RDW Coeff of Kimberly 16.3 H Plt Count 335 MPV 9.7 Immature Gran % (Auto) 0.4 Neut % (Auto) 67.9 Lymph % (Auto) 19.8 [place] % (Auto) 10.1 Eos % (Auto) 1.5 Baso % (Auto) 0.3 Immature Gran # (Auto) 0.04 H Neut # (Auto) 6.42 Lymph # (Auto) 1.87 [place] # (Auto) 0.95 H Eos # (Auto) 0.14 Baso # (Auto) 0.03 Sodium 136 Potassium 4.4 Chloride 99 Carbon Dioxide 29 Anion Gap 8.0 BUN 14 Creatinine 1.57 H Est Cr Clr Drug Dosing 83.1 Est GFR ( Amer) 63.4 Est GFR (Non-Af Amer) 54.7 BUN/Creatinine Ratio 8.7 L Glucose 105 H Calcium 9.4 Total Bilirubin 1.7 H AST 128 H ALT 460 H Alkaline Phosphatase 62 Troponin I 0.018 Total Protein 7.7 Albumin 3.4 Globulin 4.3 H Albumin/Globulin Ratio 0.8 L Lipase 876 H Urine Color [place] Urine Appearance Clear Urine pH 5.5 Ur Specific [place] 1.033 H Urine Protein 2+ H Urine Glucose (UA) Trace H Urine Ketones Trace H Urine Blood Trace H Urine Nitrite Positive H Urine Bilirubin 1+ H Urine Urobilinogen Negative Ur Leukocyte Esterase Trace H Urine WBC (Auto) 1-5 Urine RBC (Auto) 5-10 H U Hyaline Cast (Auto) 5-10 H U Epithel Cells (Auto) 5-10 H Urine Bacteria (Auto) Negative 10/10/18 07:06 WBC 7.91 RBC 6.11 H Hgb 18.2 H Hct 54.4 H MCV 89.0 MCH 29.8 MCHC 33.5 RDW Std Deviation 53.5 H RDW Coeff of [place] 16.4 H Plt Count 317 MPV 9.4 Immature Gran % (Auto) 0.4 Neut % (Auto) 68.3 Lymph % (Auto) 22.5 [place] % (Auto) 6.3 Eos % (Auto) 2.1 Baso % (Auto) 0.4 Immature Gran # (Auto) 0.03 H Neut # (Auto) 5.40 Lymph # (Auto) 1.78 [place] # (Auto) 0.50 Eos # (Auto) 0.17 Baso # (Auto) 0.03 Sodium Potassium Chloride Carbon Dioxide Anion Gap BUN Creatinine Est Cr Clr Drug Dosing Est GFR ( Amer) Est GFR (Non-Af Amer) BUN/Creatinine Ratio Glucose Calcium Total Bilirubin AST ALT Alkaline Phosphatase Troponin I Total Protein Albumin Globulin Albumin/Globulin Ratio Lipase Urine Color Urine Appearance Urine pH Ur Specific [place] Urine Protein Urine Glucose (UA) Urine Ketones Urine Blood Urine Nitrite Urine Bilirubin Urine Urobilinogen Ur Leukocyte Esterase Urine WBC (Auto) Urine RBC (Auto) U Hyaline Cast (Auto) U Epithel Cells (Auto) Urine Bacteria (Auto) Diagnostic Findings MR MRCP HISTORY: elevated LFTs/lipase, gallstones, neg GB US, - CT TECHNIQUE: MRCP the abdomen was performed without the use of intravenous contrast according to standard department protocol. COMPARISON STUDY: Abdomen and pelvis CT and abdominal ultrasound 10/09/2018. FINDINGS: The lung bases are clear. The liver, spleen, adrenal glands, and right kidney are unremarkable. There are few small left peripelvic renal cysts. No hydronephrosis. No retroperitoneal lymphadenopathy. Normal caliber abdominal aorta. Normal signal intensity within the pancreas. No peripancreatic edema to suggest acute pancreatitis. The common bile duct is normal in course and caliber and measures 3 mm in diameter. No filling defects within the common bile duct. No intrahepatic bile duct dilatation. The main pancreatic duct is difficult to assess due to its small caliber but is likely within normal limits. No gallbladder wall thickening. There are few small gallstones measuring up to 3 mm. IMPRESSION: 1. Cholelithiasis. No gallbladder wall thickening. 2. The common bile duct and main pancreatic duct are normal in course and caliber. No filling defects within the common bile duct to suggest choledocholithiasis. Electronically signed by: Matias Cabezas M.D. 10/09/2018 10:45 PM BILIARY ULTRASOUND CLINICAL HISTORY: Upper abdominal pain COMPARISON STUDY: 12/09/2014 FINDINGS: Visualization the pancreas is limited due to overlying bowel gas shadowing. No definite pancreatic abnormalities are visualized. The liver appears sonographically normal. There is no ductal dilatation. The common bile duct measures 3 mm. Several gallbladder calculi are delineated. The common bile duct measures 3 mm. There is no right-sided hydronephrosis. IMPRESSION: 1. Cholelithiasis. Contracted gallbladder. 2. No ductal dilatation. Code Status & VTE Plan VTE Prophylaxis Plan VTE Prophylaxis will be ordered: Yes
[2018-10-10 07:52] LABS: Albumin Level 3.3 gm/dl (3.4-5.0); BUN Creatinine Ratio 8.3 (10-20); Calcium 8.6 mg/dl (8.5-10.1); Creatinine Clr Calc Pharmacy 103.5 ml/min; Est GFR (African American) 82.7; Est GFR (Non-African American) 71.4; Potassium 4.9 mmol/L (3.5-5.1)
[2018-10-10 08:01] LABS: Albumin Globulin Ratio 0.8 (0.9-2); Bilirubin,Total 2.7 mg/dl (0.2-1); Globulin 4.2 gm/dl (2.5-4.0); Total Protein 7.5 gm/dl (6.4-8.2)
[2018-10-10] MEDS: CIPROFLOXACIN 400 MG/200 ML BAG IV SCH (09:37)
[2018-10-10] MEDS: NSS + 20MEQ KCL 20 MEQ/1,000 ML BAG IV SCH ×2 (09:37→21:57)
--- NOTE | 2018-10-10 09:39 | Surgery Consultation ---
Date of Consultation October 10, 2018 Assessment & Plan (1) Cholelithiasis: Cholelithiasis/ biliary colic with possible passage of common duct stone. LFT's remain elevated but MRCP negative. Discussed with GI and recommendation is for surgery with IOC. Lap cholecystectomy with IOC discussed with pt with risks of bleeding, infection, conversion to open, retained common duct stone, bile leak, need for drain. All questions answered. Understands the possibility of false negative MRCP with recurrent symptoms following surgery requiring ercp. All questions answered. Consent signed. Will add on for OR today. Present on Admission?: Yes (2) Abnormal LFTs: Bili is still trending up but AST and ALT are trending down. MRCP negative. Will plan for IOC and monitoring of LFTs. Present on Admission?: Yes History of Present Illness Reason for Consultation: gallstones Requesting Physician: Carlton Cazares MD Attending Physician: Carlton Cazares MD History of Present Illness 38 yr old man who has been noticing abdominal bloating for the past few months. This would typically occur after eating but no relation to any specific food. In the past few weeks, developed more abdominal pain/ discomfort in the upper abdomen. This is typically in the right upper quadrant and in the past few days , developed nausea and vomiting. No change in bowel habits although he tends to be constipated and is not always regular in his bowel movements. Urine is darker this morning, no alcon colored stools. Pain today has improved. In the ER was found to have gallstones and elevated lft's. MRCP was negative. CBD is 3 mm in diameter. GI has seen pt and no plans for ercp. No family history of gallbladder disease. Allergies Allergy/AdvReac Type Severity Reaction Status Date / Time No Known Allergies Allergy Unverified 10/09/18 13:20 Home Medications Home Medications Medication Instructions Recorded Confirmed Type levothyroxine 50 mcg PO DAILY 10/09/18 10/09/18 History omega 5-xrj-lec-fish oil [Fish Oil] 1 cap PO DAILY 10/09/18 10/09/18 History omeprazole 40 mg PO DAILY 10/09/18 10/09/18 History Patient History Medical History Abdominal pain (Acute) Constipation (Acute) Elevated ALT measurement (Acute) Hepatitis (Acute) Social History Current Living Situation: Spouse and Other Current Living Situation Comment: spouse, children Other Information That Helps Us Care for You: No Feels Safe at Home: Yes Safety Concerns: Feels Safe At This Time Smoking Status: Never smoker Hx Alcohol Use: Yes Alcohol type: hard liquor Alcohol Intake Frequency: a few times a month Hx Substance Use: No Beliefs That Will Affect Care: None Preferred Language: Norwegian Communication Ability: Effective Apartment Manager Required: No Review of Systems Constitutional: no fever and no chills Eyes: no problem reported Ear, Nose, Mouth, Throat: no problem reported Respiratory: no problem reported Cardiovascular: no problem reported Gastrointestinal: as per Subjective / HPI Genitourinary (Male): + problem reported (dark urine today) Musculoskeletal: no problem reported Neurologic: no problem reported Psychiatric: no problem reported Hematologic / Lymphatic: no problem reported Allergy / Immunological: no problem reported Physical Exam 2 Vital Signs (Past 24 Hours): Last Vital Signs Temp 36.6 C 10/10/18 07:01 Pulse 89 10/10/18 07:01 Resp 18 10/10/18 07:01 BP 160/89 H 10/10/18 07:01 Pulse Ox 95 10/10/18 07:01 Constitutional: WD/WN, vitals as above ENMT: Ears: no hearing impairment Neck: normal visual inspection and trachea midline Respiratory: normal respiratory effort, lungs clear to auscultation Cardiovascular: RRR, no murmur, no edema Gastrointestinal (Abdomen): Inspection/Auscultation: abdomen normal to inspection and normal bowel sounds; abdomen not distended Percussion/ Palpation: + abdomen tender (mild in right upper quadrant) and abdomen soft; no guarding Musculoskeletal: no cyanosis or clubbing, extremities motor strength 5/5 Skin: no rashes, warm and dry Neurologic: CN's II-XI intact bilaterally, moves all extremities and awake Psychiatric: A+Ox3, euthymic affect Results & Data Laboratory Results WBC ct normal T bili up to 2.7 from 1.7 AST 114 from 128 ALT 385 fro 460 Diagnostic Findings RUQ U/S shows contracted gallbladder with gallstones, CBD 3 mm MRCP no evidence of common duct stone
[2018-10-10] MEDS ORDERED: ONDANSETRON INJ 2 MG/ML 2 ML VIAL IV PRN (10:22)
[2018-10-10] MEDS ORDERED: fentaNYL citrate 100 MCG/2 ML VIAL IV PRN (10:22)
[2018-10-10] MEDS ORDERED: ATROPINE SULFATE 0.1 MG/ML 10ML SYR IV PRN (10:22)
[2018-10-10] MEDS ORDERED: ePHEDrine sulfate 50 MG/ML AMP IV PRN (10:22)
[2018-10-10] MEDS ORDERED: ONDANSETRON INJ 2 MG/ML 2 ML VIAL ONE (10:37)
[2018-10-10] MEDS ORDERED: PROPOFOL IV EMULSION 10 MG/ML 20 ML VIAL IV ONE (10:37)
[2018-10-10] MEDS ORDERED: fentaNYL citrate 100 MCG/2 ML VIAL ONE ×2 (10:37→11:48)
[2018-10-10] MEDS ORDERED: DEXAMETHASONE SOD INJ 4 MG/ML VIAL ONE (10:37)
[2018-10-10] MEDS ORDERED: LIDOCAINE HCL 2% 2 ML VIAL/AMP(20MG/ML) INFIL ONE (10:37)
[2018-10-10] MEDS ORDERED: PANTOprazole 40 MG in SYRINGE 0 ML IV SCH (11:00)
[2018-10-10] MEDS ORDERED: CONRAY 60% 50 ML VIAL ONE (11:04)
[2018-10-10] MEDS ORDERED: BUPIVACAINE 0.5 % 5 MG/1 ML MPF 30ML VIAL ONE (11:04)
--- NOTE | 2018-10-10 11:10 | Anesthesiology Consultation ---
Date of Service October 10, 2018 Assessment & Plan (1) Encounter for pre-operative examination: Chart Review Chart Review: Acceptable Risk for Surgery Consults Requested none ASA ASA2 Proposed Anesthesia Anesthesia Type: General Risk / Benefits Reviewed With: PT / POA / Parent / Guardian, Accepts Plan and Informed Consent Obtained NPO Date Last Intake of Fluids: 10/09/18 Time Last Intake of Fluids: 19:00 Date Last Intake of Solids: 10/09/18 Time Last Intake of Solids: 11:00 History Surgery Operation Date: 10/10/18 11:00 Proposed Procedures p Laparoscopic Cholecystectomy - Nury Cotton MD Height/Weight Height: 6 ft Weight: 116 kg Allergies Allergy/AdvReac Type Severity Reaction Status Date / Time No Known Allergies Allergy Unverified 10/09/18 13:20 Medications Home Medications Medication Instructions Recorded Confirmed Last Taken levothyroxine 50 mcg PO DAILY 10/09/18 10/09/18 10/04/18 omega 9-ryk-sdu-fish oil [Fish Oil] 1 cap PO DAILY 10/09/18 10/09/18 10/04/18 omeprazole 40 mg PO DAILY 10/09/18 10/09/18 10/04/18 Active Medications Generic Name Dose Route Start Last Admin Trade Name Freq PRN Reason Stop Dose Admin Ciprofloxacin 400 mg in 200 mls @ 200 mls/hr 10/09/18 22:00 10/10/18 09:37 Cipro IV 10/19/18 21:59 200 mls/hr Q12H SHAKIR Administration Potassium Chloride/Sodium Chloride 20 meq in 1,000 mls @ 100 mls/hr 10/09/18 21:50 10/10/18 09:37 Normal Saline W/20 Meq Kcl IV 11/08/18 21:49 100 mls/hr .Q10H SHAKIR Administration Past Medical History Medical History Abdominal pain (Acute) Constipation (Acute) Elevated ALT measurement (Acute) Hepatitis (Acute) GERD (gastroesophageal reflux disease) Hypothyroid Past Surgical History Surgical History S/P excision of ganglion cyst Social History Smoking Status: Never smoker Hx Alcohol Use: Yes Alcohol type: hard liquor alcohol intake frequency: a few times a month Hx Substance Use: No Exercise / Class Metabolic Activity II 4-5 Yardwork/Stairs/Walk up hill Physical Exam Vital Signs Last Vital Signs Temp 97.9 F 10/10/18 07:01 Pulse 89 10/10/18 07:01 Resp 18 10/10/18 07:01 BP 160/89 H 10/10/18 07:01 Pulse Ox 95 10/10/18 07:01 ENMT Mouth: no dentition abnormality Thyromental Distance: > or= 3.5 Finger Breadths Mallampati Class: I Neck + facial hair Respiratory normal respiratory effort Auscultation: lungs clear to auscultation bilaterally Cardiovascular Rate/Rhythm: regular rate and regular rhythm Testing Electrocardiogram Date: 10/09/18 Findings: + NSST changes and + ST @ (101 bpm) Laboratory Results 10/10/18 07:06 10/10/18 07:06 PT 10.6 Seconds (9.0-12.0) 10/10/18 07:06 INR 1.1 (0.9-1.1) 10/10/18 07:06 APTT 25.6 Seconds (21.0-31.0) 10/10/18 07:06 Urine Color [place] 10/09/18 13:00 Urine Appearance Clear (Clear) 10/09/18 13:00 Urine pH 5.5 (4.5-7.5) 10/09/18 13:00 Ur Specific [place] 1.033 (1.000-1.030) H 10/09/18 13:00 Urine Protein 2+ (Negative) H 10/09/18 13:00 Urine Glucose (UA) Trace (Negative) H 10/09/18 13:00 Urine Ketones Trace (Negative) H 10/09/18 13:00 Urine Nitrite Positive (Negative) H 10/09/18 13:00 Ur Leukocyte Esterase Trace (Negative) H 10/09/18 13:00 Urine WBC (Auto) 1-5 /hpf (0-5) 10/09/18 13:00 Urine RBC (Auto) 5-10 /hpf (0-4) H 10/09/18 13:00 U Hyaline Cast (Auto) 5-10 /lpf (0-5) H 10/09/18 13:00 U Epithel Cells (Auto) 5-10 /lpf (0-5) H 10/09/18 13:00 Urine Bacteria (Auto) Negative (Negative) 10/09/18 13:00
--- NOTE | 2018-10-10 12:42 | Fluoroscopy Report ---
[place] cholangiogram OR CLINICAL HISTORY: Fluoroscopic cholecystectomy COMPARISON STUDY: MRCP dated 10/09/2018 FLUOROSCOPY TIME: 16 seconds. NUMBER OF FLUOROSCOPIC IMAGES: 6 FINDINGS: Contrast was instilled into the common bile duct. There is no significant ductal dilatation . There are no filling defects to indicate obtained calculi. There is free flow into the duodenum. Th ere is a small amount of contrast extravasation extending over the undersurface of the liver. IMPRESSION: No common bile duct calculi identified. Free flow into the duodenum. Electronically signed by: Elliot Juares M.D. 10/10/2018 12:41 PM
--- NOTE | 2018-10-10 12:56 | Operative Report ---
Post Operative Report Pre & Post Diagnosis Operation Date: 10/10/18 11:00 Pre-Op Diagnosis: GALLSTONE PANCREATITIS,ACUTE CHOLECYSTITIS Post-Op Diagnosis: GALLSTONES, PANCREATITIS,ACUTE CHOLECYSTITIS Procedure Operation Date: 10/10/18 11:00 Actual Procedures p Laparoscopic Cholecystectomy with cholangiogram(Not Applicable) - Nury Cotton MD Surgeon Nury Cotton MD Jacquard Lace Weaver none Estimated Blood Loss 5 Findings Consistent with Post-Op Diagnosis Specimens gallbladder and contents Description of Procedure see operative report IOC done with flow into duodenum, no filling defect seen I attest to the content of the Intraoperative Record and any orders documented therein. Any exceptions are noted below.
--- NOTE | 2018-10-10 13:41 | Anesthesiology Progress Note ---
Date of Service October 10, 2018 Anesthesia Post Procedure Vital Signs Vital Signs: Temp Pulse Pulse Pulse Resp BP BP 10/10/18 13:35 97.9 F 94 H 16 152/91 H 10/10/18 13:27 93 H 16 134/95 10/10/18 13:15 90 16 159/77 H 10/10/18 13:07 96.8 F L 90 16 142/95 H 10/10/18 07:01 97.9 F 89 18 160/89 H 10/09/18 23:14 98.1 F 94 H 16 145/72 H 10/09/18 21:31 97.7 F 93 H 16 175/92 H 10/09/18 21:06 88 20 163/84 H 10/09/18 20:00 89 18 10/09/18 18:00 92 H 20 10/09/18 16:21 90 20 10/09/18 14:00 96 H 16 BP Pulse Ox 10/10/18 13:35 92 10/10/18 13:27 92 10/10/18 13:15 96 10/10/18 13:07 96 10/10/18 07:01 95 10/09/18 23:14 95 10/09/18 21:31 175/92 H 94 10/09/18 21:06 99 10/09/18 20:00 169/83 H 99 10/09/18 18:00 169/94 H 99 10/09/18 16:21 147/85 H 98 10/09/18 14:00 196/98 H 95 Pain Intensity Abdomen: Pain Intensity: 3 Notes Mental Status: alert / awake / arousable and participated in evaluation Patient Amnestic to Procedure: Yes Nausea / Vomiting: adequately controlled Pain: adequately controlled Airway Patency, RR, SpO2: stable & adequate BP & HR: stable & adequate Hydration State: stable & adequate Anesthetic Complications: no major complications apparent and Pt Satisfied with anesthetic care
--- NOTE | 2018-10-10 13:56 | Operative Report ---
DATE OF OPERATION: 10/10/2018 PREOPERATIVE DIAGNOSES: Elevated liver function tests, symptomatic cholelithiasis with acute cholecystitis. POSTOPERATIVE DIAGNOSES: Elevated liver function tests, symptomatic cholelithiasis with acute cholecystitis. OPERATIVE PROCEDURE: Laparoscopic cholecystectomy with intraoperative cholangiogram. SURGEON: Nury Cotton MD DIE MAKER STAMPING: None. ANESTHESIA: General endotracheal anesthesia. IV FLUIDS: 1600 mL. ESTIMATED BLOOD LOSS: 5 mL. COMPLICATIONS: None. OPERATIVE FINDINGS: IOC showed flow into duodenum, narrow small common duct, but no evidence of obstruction. No filling defect noted. INDICATIONS: Mr. Cazares is a 38-year-old gentleman who presented with elevated liver function tests. MRCP was negative for common duct stone. His total bilirubin was 2.7. AST and ALT were decreasing. He was seen by GI who did not feel an ERCP was necessary and that he may have passed a stone. He was consented for laparoscopic cholecystectomy with intraoperative cholangiogram. DESCRIPTION OF PROCEDURE: The patient was on Cipro preoperatively, after the induction of general endotracheal anesthesia, placed in sequential compression devices. His abdomen was sterilely prepped and draped. He was positioned in Trendelenburg. A supraumbilical incision was made and a Veress needle was placed in the peritoneal cavity. This was tested with the saline drop test. Initial pressure was 2 mmHg and this was taken up to 15 mmHg. A 5 mm trocar was placed. Three additional trocars were placed under direct vision, an 11 in the epigastrium and two 5s on the right side of the abdomen. The gallbladder was grasped and retracted over the edge of the liver. It was noted to be distended with an edematous wall. The dissection was begun at the triangle of Calot. The cystic node was identified. The gallbladder was pedunculated and the critical view seen anteriorly and posteriorly. The cystic duct and cystic artery were both cleared of attachments. The cystic artery was doubly clipped on the remaining side, singly clipped on the gallbladder side and divided. A clip was then placed superiorly on the gallbladder and a ductotomy created. The cholangiogram catheter was placed into the ductotomy and the catheter passed unlikely into the common bile duct. The balloon was deployed. The intraoperative cholangiogram was then obtained and this did show flow throughout the common duct into the duodenum. The common duct was narrow as it was entering the duodenum, but no gross filling defect noted. The catheter was then removed. Three clips were placed below the ductotomy and another placed superior to it and the gallbladder divided. The gallbladder was dissected off the liver bed without difficulty. It was placed in an Endobag and removed through the epigastric incision. Hemostasis was noted to be present. The abdomen was irrigated and suctioned clear. The trocars were removed. 30 mL of 0.5% Marcaine had been used for local anesthesia throughout the procedure. The fascia of the epigastric incision was closed with 0 Vicryl stitches placed anteriorly. The skin of all 4 incisions closed with running subcuticular 4-0 Vicryl sutures. Steri-Strip, sterile dressings were applied. He was awakened and taken to recovery in stable condition. I attest to the content of the Intraoperative Record and any orders documented therein. Any exception s are noted below.
[2018-10-10] MEDS ORDERED: OXYCODONE/ACETAMINOPHEN 5mg/325mg TAB PO PRN (14:05)
[2018-10-10] MEDS ORDERED: ACETAMINOPHEN 325 MG TAB PO PRN (14:05)
--- NOTE | 2018-10-10 16:37 | Hospitalist Progress Note ---
Date of Service October 10, 2018 Assessment & Plan (1) Biliary colic: S/p lap isma with Dr. Cotton on 10/10. Will get another set of LFTs tonight and tomorrow, and could be discharged home if improving. - Routine post-lap isma care per surgery - Post-op had some hypoxemia and pinkish sputum. Per RN, bit tube and had a difficult extubation. Possibly some mild flash pulmonary edema from negative pressure, combined with baseline sleep apnea ( reports snoring and jerking awake during sleep). - Frequent waking and incentive spirometry - O2 PRN, wean as able (2) Abnormal LFTs: See above (3) Elevated lipase: See above (4) Acute kidney injury (nontraumatic): Secondary to dehydration associated with nausea and vomiting and overall decreased oral intake. Creatinine 1.57 upon admission, down to 1.2 by 10/10. - IV fluids - Monitor Cr (5) Hypothyroidism: Last TSH/FT4 were remote from 08/2017, but signs/symptoms of hypo-/ hyperthyroidism. - Continue home Synthroid 50 mcg (6) DVT prophylaxis: SCDs - Low risk patient Subjective 38yo M w/ hx of hypothyroidism who presents with cholecystitis. Underwent lap isma today with some hypoxemia after. Wakes up though and reports no fevers/chills, chest pain, shortness of breath, abdominal pain, nausea, or vomiting. Physical Exam 2 Vital Signs (Past 24 Hours): Last Vital Signs Temp 36.8 C 10/10/18 15:45 Pulse 106 H 10/10/18 15:45 Resp 18 10/10/18 15:45 BP 167/96 H 10/10/18 15:45 Pulse Ox 92 10/10/18 15:45 Constitutional: WD/WN, vitals as above Eyes: PERRL, conjunctivae normal, anicteric sclerae ENMT: Ears: no hearing impairment Neck: trachea midline, no thyromegaly normal visual inspection, trachea midline and + facial hair Respiratory: normal respiratory effort, lungs clear to auscultation normal respiratory effort Auscultation: lungs clear to auscultation bilaterally Cardiovascular: RRR, no murmur, no edema Rate/Rhythm: regular rate and regular rhythm Heart Sounds: no murmur Gastrointestinal (Abdomen): Inspection/Auscultation: abdomen normal to inspection and normal bowel sounds; abdomen not distended Percussion/ Palpation: + abdomen tender (mild in right upper quadrant) and abdomen soft; no guarding Musculoskeletal: no cyanosis or clubbing, extremities motor strength 5/5 Head/Neck/Chest: neck supple Skin: no rashes, warm and dry Neurologic: CN's II-XI intact bilaterally, moves all extremities and awake Psychiatric: A+Ox3, euthymic affect
[2018-10-10] MEDS ORDERED: ALUMINUM/MAGNESIUM/SIMETH (MAALOX MAX) 30 ML UDC PO PRN (17:50)
--- NOTE | 2018-10-10 18:29 | XRay Report ---
XR chest 2V routine CLINICAL HISTORY: Hypoxemia post-op COMPARISON STUDY: No previous studies for comparison. FINDINGS: The heart is enlarged. Symmetrical lower lung zone nodules are felt to represent nipple sha dows. There are left basilar airspace opacities with air bronchograms atelectasis versus pneumonia. C linical and radiographic follow-up is recommended. No pleural effusions are visualized. IMPRESSION: 1. Left lower lobe airspace opacities with air bronchograms. Atelectasis versus pneumonia. Clinical a nd radiographic follow-up is recommended. 2. Cardiomegaly. Electronically signed by: Elliot Juares M.D. 10/10/2018 6:27 PM
[2018-10-10] MEDS: OXYCODONE/ACETAMINOPHEN 5mg/325mg TAB PO PRN (18:56)
[2018-10-10] MEDS: AMPICILLIN/SULBACTAM SOD 3,000 MG in 0.9 % SODIUM CHLORIDE 100 ML IV SCH (19:45)
[2018-10-10 20:00] LABS: Albumin Level 2.8 gm/dl (3.4-5.0); Bilirubin Direct 1.6 mg/dl (0-0.2); Bilirubin,Total 2.6 mg/dl (0.2-1); Total Protein 6.6 gm/dl (6.4-8.2)
[2018-10-11] MEDS: AMPICILLIN/SULBACTAM SOD 3,000 MG in 0.9 % SODIUM CHLORIDE 100 ML IV SCH ×2 (01:56→10:00)
[2018-10-11] MEDS ORDERED: LEVOTHYROXINE SODIUM 50 MCG TABLET PO SCH (06:30)
--- NOTE | 2018-10-11 07:05 | Gastroenterology Progress Note ---
Date of Service October 11, 2018 Assessment & Plan (1) Cholelithiasis: Patient status post cholecystectomy yesterday for cholelithiasis. His bilirubin from yesterday show slight improvement and is reassuring. I did suggest that the patient be n.p.o. this morning in case his bilirubin is greater than 3.5 which then could suggest a retained common bile duct stone. If the bilirubin is the same today or continues to drop then the patient's diet can be advanced as tolerated and I would suggest outpatient follow-up with my office as needed. Subjective The patient underwent cholecystectomy yesterday and notes that he is actually feeling better today. He notes some sore throat but otherwise denies nausea, vomiting or bloating today. Physical Exam 2 Vital Signs (Past 24 Hours): Last Vital Signs Temp 36.5 C 10/11/18 04:01 Pulse 104 H 10/11/18 04:01 Resp 18 10/11/18 04:01 BP 143/79 H 10/11/18 04:01 Pulse Ox 95 10/11/18 04:01 Constitutional: well developed and well nourished; no acute distress and not ill appearing Eyes: PERRL, conjunctivae normal, anicteric sclerae Neck: trachea midline, no thyromegaly Respiratory: normal respiratory effort, lungs clear to auscultation Cardiovascular: Rate/Rhythm: regular rate and regular rhythm Gastrointestinal (Abdomen): Percussion/Palpation: abdomen soft; abdomen nontender and no guarding Results & Data Laboratory Results Laboratory Results - last 24 hr 10/10/18 10/10/18 10/10/18 07:06 07:06 07:06 WBC 7.91 RBC 6.11 H Hgb 18.2 H Hct 54.4 H MCV 89.0 MCH 29.8 MCHC 33.5 RDW Std Deviation 53.5 H RDW Coeff of Kimberly 16.4 H Plt Count 317 MPV 9.4 Immature Gran % (Auto) 0.4 Neut % (Auto) 68.3 Lymph % (Auto) 22.5 Burke % (Auto) 6.3 Eos % (Auto) 2.1 Baso % (Auto) 0.4 Immature Gran # (Auto) 0.03 H Neut # (Auto) 5.40 Lymph # (Auto) 1.78 Burke # (Auto) 0.50 Eos # (Auto) 0.17 Baso # (Auto) 0.03 PT 10.6 INR 1.1 APTT 25.6 PTT Ratio 1.0 Sodium 134 L Potassium 4.9 Chloride 104 Carbon Dioxide 25 Anion Gap 5.0 BUN 10 Creatinine 1.26 D Est Cr Clr Drug Dosing 103.5 Est GFR ( Amer) 82.7 Est GFR (Non-Af Amer) 71.4 BUN/Creatinine Ratio 8.3 L Glucose 81 Calcium 8.6 Total Bilirubin 2.7 H D Direct Bilirubin AST 114 H ALT 385 H Alkaline Phosphatase 51 Total Protein 7.5 Albumin 3.3 L Globulin 4.2 H Albumin/Globulin Ratio 0.8 L Lipase 718 H 10/10/18 18:54 WBC RBC Hgb Hct MCV MCH MCHC RDW Std Deviation RDW Coeff of Kimberly Plt Count MPV Immature Gran % (Auto) Neut % (Auto) Lymph % (Auto) Burke % (Auto) Eos % (Auto) Baso % (Auto) Immature Gran # (Auto) Neut # (Auto) Lymph # (Auto) Burke # (Auto) Eos # (Auto) Baso # (Auto) PT INR APTT PTT Ratio Sodium Potassium Chloride Carbon Dioxide Anion Gap BUN Creatinine Est Cr Clr Drug Dosing Est GFR ( Amer) Est GFR (Non-Af Amer) BUN/Creatinine Ratio Glucose Calcium Total Bilirubin 2.6 H Direct Bilirubin 1.6 H AST 137 H ALT 411 H Alkaline Phosphatase 48 Total Protein 6.6 Albumin 2.8 L Globulin Albumin/Globulin Ratio Lipase
[2018-10-11 07:37] LABS: Hematocrit (blood only) 50.3 % (42-52); Hemoglobin 17.3 g/dL (14.0-18.0); Immature Granulocytes # (auto) 0.03 K/uL (0.00-0.02); Immature Granulocytes % (auto) 0.2 %; Lymphocytes # (auto) 0.89 K/uL (1.2-3.4); Mean Corpuscular Hgb Conc 34.4 g/dL (32-36); Mean Corpuscular Volume 88.9 fL (80-100); Mean Platelet Volume 9.4 fL (7.4-10.4); Monocytes # (auto) 0.66 K/uL (0.11-0.59); Monocytes % (auto) 5.2 %; Neutrophils # (auto) 11.11 K/uL (1.4-6.5); Neutrophils % (auto) 87.6 %; Platelet Count 343 K/uL (130-400); RDW Coefficient of Variation 16.2 % (11.5-14.5); RDW Standard Deviation 52.8 fL (36.4-46.3); Red Blood Count 5.66 M/uL (4.7-6.1); White Blood Count 12.69 K/uL (4.8-10.8)
[2018-10-11 07:45] LABS: INR 1.1 (0.9-1.1); Prothrombin Time 10.7 Seconds (9.0-12.0)
[2018-10-11 08:14] LABS: Albumin Level 2.9 gm/dl (3.4-5.0); BUN Creatinine Ratio 7.3 (10-20); Calcium 8.3 mg/dl (8.5-10.1); Creatinine Clr Calc Pharmacy 102.7 ml/min; Est GFR (African American) 81.9; Est GFR (Non-African American) 70.7; Magnesium 2.2 mg/dl (1.8-2.4); Potassium 4.5 mmol/L (3.5-5.1)
[2018-10-11 08:25] LABS: Albumin Globulin Ratio 0.8 (0.9-2); Bilirubin,Total 2.7 mg/dl (0.2-1); Globulin 3.8 gm/dl (2.5-4.0); Total Protein 6.7 gm/dl (6.4-8.2)
[2018-10-11] MEDS: NSS + 20MEQ KCL 20 MEQ/1,000 ML BAG IV SCH (08:49)
[2018-10-11] MEDS: OXYCODONE/ACETAMINOPHEN 5mg/325mg TAB PO PRN (08:54)
[2018-10-11] MEDS ORDERED: OMEGA-3 (PURIFIED FISH OIL) 1 GM CAP PO SCH (09:00)
[2018-10-11] MEDS ORDERED: PANTOprazole 40 MG TAB PO SCH (09:00)
--- NOTE | 2018-10-11 10:11 | Surgery Progress Note ---
Date of Service October 11, 2018 Assessment & Plan (1) Cholelithiasis: s/p lap cholecystectomy. Doing well. LFT's stable. OK to advance diet as tolerated and discharge home later today on po percocet for pain control. (2) Abnormal LFTs: stable bilirubin today. will recheck liver tests in two weeks at his outpatient appt Subjective Feels well. Pain controlled with percocet. No nausea or vomiting. Review of Systems All systems reviewed & are unremarkable except as noted in HPI & below Physical Exam 2 Vital Signs (Past 24 Hours): Last Vital Signs Temp 36.8 C 10/11/18 07:00 Pulse 110 H 10/11/18 07:00 Resp 21 10/11/18 07:00 BP 147/80 H 10/11/18 07:00 Pulse Ox 95 10/11/18 07:00 Gastrointestinal (Abdomen): normal bowel sounds, soft, nontender, no hepatosplenomegaly Inspection/Auscultation: + abdominal surgical incision ( clean and intact) Results & Data Laboratory Results t. bili unchanged at 2.7 Diagnostic Findings IOC showed no evidence of common duct stone
--- NOTE | 2018-10-11 17:30 | Discharge Summary ---
Date of Service October 11, 2018 Admission HPI Per Admitting Provider The patient presented to the emergency room yesterday afternoon for evaluation of persistent abdominal discomfort, bloating, nausea and occasional emesis. The symptoms have been ongoing for several weeks and given persistence he called his primary care doctor for advice. They suggested an ER evaluation as there was no availability in their outpatient clinic. He reports having intermittent abdominal discomfort typically localizing to the right upper quadrant associated with nausea and several episodes of emesis. He notes that over the last 24 hours the symptoms seem to have improved. He underwent lab testing which showed elevation of his AST and ALT. Imaging showed evidence of cholelithiasis on ultrasound and MRI. The bile duct appears to be within normal limits on both studies. The patient notes that his bowel habits have been somewhat irregular but he denies having alcon-colored stools or diarrhea. The patient has no surgical history and uses no herbal supplements. He has no recent travel outside the [place] and has had no prior blood transfusions patient does have a number of tattoos which were placed a professional shops. There is no history of IV drug abuse or significant alcohol use. Principal Diagnosis Cholecystitis Discharge Exam Constitutional WD/WN, vitals as above Eyes PERRL, conjunctivae normal, anicteric sclerae ENMT Ears: no hearing impairment Neck trachea midline, no thyromegaly normal visual inspection, trachea midline and + facial hair Respiratory normal respiratory effort, lungs clear to auscultation normal respiratory effort Auscultation: lungs clear to auscultation bilaterally Cardiovascular RRR, no murmur, no edema Rate/Rhythm: regular rate and regular rhythm Heart Sounds: no murmur Gastrointestinal (Abdomen) Inspection/Auscultation: abdomen normal to inspection and normal bowel sounds; abdomen not distended Percussion/Palpation: + abdomen tender (mild in right upper quadrant) and abdomen soft; no guarding Musculoskeletal no cyanosis or clubbing, extremities motor strength 5/5 Head/Neck/Chest: neck supple Skin no rashes, warm and dry Neurologic CN's II-XI intact bilaterally, moves all extremities and awake Psychiatric A+Ox3, euthymic affect Discharge Data Allergies Allergy/AdvReac Type Severity Reaction Status Date / Time No Known Allergies Allergy Unverified 10/09/18 13:20 Consultations 10/09/18 19:30 ED Decision to Admit Stat 10/09/18 21:50 Consult Case Management - Discharge Planning Routine Consult Gastroenterology Routine Consult General Surgery Routine Procedures Performed Operation Date: 10/10/18 11:00 Actual Procedures p Laparoscopic Cholecystectomy with cholangiogram(Not Applicable) - Nruy Cotton MD Ordered Studies 10/09/18 12:43 US gallbladder Stat 10/09/18 16:35 CT abd pelvis IV con only Stat 10/09/18 19:30 MR MRCP Routine 10/10/18 [place] cholangiogram OR Routine Hospital Course (1) Biliary colic: S/p lap isma with Dr. Cotton on 10/10. By 10/11, patient's LFTs were stable/improving, patient felt well, and was ready for discharge. - Routine post-lap isma care per surgery - Post-op had some hypoxemia and pinkish sputum. Per RN, bit tube and had a difficult extubation. Possibly some mild flash pulmonary edema from negative pressure, combined with baseline sleep apnea ( reports snoring and jerking awake during sleep). - CXR on 10/10 showed likely aspiration vs. atelectasis in the lung bases. Given his difficult extubation, concern for aspiration, and the patient was discharged on Augmentin for a 5-day course. He was off supplemental O2 and breathing comfortably on room air on discharge. (2) Abnormal LFTs: See above (3) Elevated lipase: See above (4) Acute kidney injury (nontraumatic): Secondary to dehydration associated with nausea and vomiting and overall decreased oral intake. Creatinine 1.57 upon admission, down to 1.2 by 10/10. - IV fluids (5) Hypothyroidism: Last TSH/FT4 were remote from 08/2017. TSH was rechecked on 10/11, and was normal; however, given the patient reports often feeling hot, being tachycardic to ~100, there was concern that he was being overtreated for his thyroid. He will follow up with his PCP, but until then: - Continued home Synthroid 50 mcg (6) DVT prophylaxis: SCDs - Low risk patient Total Time Total Time Spent Total Time Spent (In Minutes): 40 Total Time Includes: Examination of the Patient, Discharge Planning, Medication Reconciliation and Communication With Other Providers Discharge Plan Discharge Items Patient Disposition: Home - Self-Care Reason For Visit: GALLSTONE PANCREATITIS,ACUTE CHOLECYSTITIS Discharge Diagnosis: Cholecystitis Discharge Goals: Decrease discomfort and Improve function Activity: Resume your previous activity Lifting Comment: No more than 20 pounds until seen by Dr. Anita Dasilva Comment: May shower this evening Non-emergency contact: Primary Care Provider and Surgeon Call non-emergency contact if: you have any medication questions, your symptoms worsen, your pain is unusual for you and your temperature is above 100.5 Follow-up/Referrals: Nury Cotton MD [Physician] - (Please see Dr. Cotton in 2 weeks. Get your liver tests checked before the visit.) Diet: Heart Healthy Addtl Provider Instructions: Mr. Cazares, You were admitted for abdominal pain that was being caused by your gallbladder. Please follow the recommendations that Dr. Cotton gave you for follow up. No lifting more than 20 pounds until seen by the surgical team. You had some breathing issues after surgery that likely were caused by fluid ( saliva) doing down into the lungs around the time you were extubated. We are giving you a short course of antibiotics to be sure there are no issues with bacteria in the lungs. Take the antibiotic 2 times per day for the next 4 days ( until it is gone). Take the first tablet tonight before bed. Your heart rate was slightly fast in the hospital, but this is probably a post- surgery issue and should resolve in 1-2 days. Please keep an eye on your blood pressure and heart rate and discuss this with your PCP on follow up. We checked your TSH to be sure your thyroid wasn't causing the fast heart rate, and your TSH was normal (~1.0). Please return to the hospital with any significant abdominal pain, fevers, chills, sweats, nausea, vomiting, or other concerning symptoms. Prescriptions: New amoxicillin-pot clavulanate [Augmentin] 875-125 mg tablet 1 tab PO BID Qty: 8 RF: 0 oxycodone-acetaminophen [Percocet] 5-325 mg tablet 1 tab PO Q6H PRN (Reason: pain) Qty: 14 RF: 0 Continue omeprazole 40 mg Capsule,Delayed Release(Dr/Ec) 40 mg PO DAILY RF: 0 levothyroxine 50 mcg Tablet 50 mcg PO DAILY RF: 0 omega 9-spk-aan-fish oil [Fish Oil] 1,000 mg (120 mg-180 mg) Capsule 1 cap PO DAILY RF: 0 Visit Report Forms: My [facility] Portal Stand-Alone Forms: My [facility] Discharge Orders: Discharge Order (Routine); Ordered 10/11/18 Ordered By: Carlton Cazares Admission Data Admit Date/Time: 10/09/18 20:45 Attending Provider: Carlton Cazares Admit Provider: Remberto Beltran Primary Care Provider: Sukhwinder Cazares Other Providers: Carlton Cazares ; Remberto Beltran ; Anita Cotton ; Nury Cotton Service: Surgical Services Other Interventions: Discharge Summary Assessment (RN) Last Done: 10/11/18 12:38 DC Date/Time DO NOT enter until pt leaves facility: 10/11/18 13:53
== END 2018-10-11 13:53 | disposition home or self-care (01) | DRG 418 ==
LOC: ED 12:01 → 3W 20:45 → SUATTDRO 20:45 → 3W 21:06

== ENCOUNTER 2022-12-02 16:16 | Inpatient (IN) ==
[2022-12-02 16:53] LABS: Basophils # (auto) 0.05 K/uL (0-0.2); Basophils % (auto) 0.5 %; Eosinophils # (auto) 0.05 K/uL (0-0.50); Eosinophils % (auto) 0.5 %; Hematocrit (blood only) 47.8 % (42.0-52.0); Hemoglobin 16.5 g/dl (14.0-18.0); Immature Granulocytes # (auto) 0.04 K/uL (0.01-0.20); Immature Granulocytes % (auto) 0.4 %; Lymphocytes # (auto) 2.11 K/uL (1.2-3.4); Lymphocytes % (auto) 22.6 %; Mean Corpuscular Hemoglobin 30.4 pg (25.0-34.0); Mean Corpuscular Hgb Conc 34.5 g/dL (32.0-36.0); Monocytes # (auto) 0.64 K/uL (0.11-0.59); Monocytes % (auto) 6.9 %; Neutrophils # (auto) 6.44 K/uL (1.40-6.50); Neutrophils % (auto) 69.1 %; Platelet Count 325 K/uL (130-400); RDW Coefficient of Variation 13.5 % (11.5-14.5); RDW Standard Deviation 43.3 fL (36.4-46.3); Red Blood Count 5.43 M/uL (4.70-6.10); White Blood Count 9.33 K/ul (4.8-10.8)
[2022-12-02 17:11] LABS: Albumin Globulin Ratio 1.3 (0.9-2); Albumin Level 4.4 gm/dl (3.4-5.0); BUN Creatinine Ratio 9.8 (10-20); Bilirubin,Total 0.7 mg/dl (0.2-1.0); Calcium 9.8 mg/dl (8.5-10.1); Creatinine Clr Calc Pharmacy 106.8 ml/min; Est GFR (African American) 92.7 ml/min; Globulin 3.3 gm/dl (2.5-4.0); Potassium 3.9 mmol/L (3.5-5.1); Total Protein 7.7 gm/dl (6.0-8.3)
[2022-12-02 17:24] LABS: Partial Thromboplastin Ratio 1.1; Partial Thromboplastin Time 29.6 Seconds (21.0-31.0); Prothrombin Time 10.7 Seconds (9.0-12.0)
--- NOTE | 2022-12-02 17:50 | XRay Report ---
XR chest 1V portable CLINICAL HISTORY: Chest pain, nonspecific TECHNIQUE: Single frontal radiograph of the chest was obtained. Comparison: Comparison is made to chest radiograph 02/22/2020 FINDINGS: No lines and tubes are seen. Cardiomegaly is noted. The lungs are clear. No evidence of pleural effus ion or pneumothorax. IMPRESSION: No acute chest disease. ACT 112: Negative or not required by law. Electronically signed by: Brodie Colon M.D. 12/02/2022 5:49 PM
[2022-12-02 18:35] LABS: Troponin I High Sensitivity 420.8 pg/ml (0-20)
[2022-12-02] MEDS ORDERED: NITROGLYCERIN SL 0.4 MG/TAB TAB ONE (18:55)
[2022-12-02] MEDS ORDERED: ASPIRIN CHEW 324 MG PO STA (18:57)
--- NOTE | 2022-12-02 19:33 | History & Physical Report ---
Patient seen and examined . Agree with physical exam and assessment and plan as outlined in Cecil Mccarthy Patient is presently chest pain-free We will continue to trend high-sensitivity troponin Patient started on antiplatelet therapy and anticoagulation with IV heparin Continue telemetry monitoring for potential arrhythmias No acute dynamic changes found on EKG Date of Service December 02, 2022 Assessment & Plan (1) Chest pain: Plan: -Admit to the PCU on tele -The patient is currently afebrile, hemodynamically stable, and stable on RA -His elevated troponin with intermittent chest pain is likely due to an NSTEMI >NO acute ST segment or T-wave changes noted >Patient is currently chest pain free >S/P 324 mg PO aspirin in the ED -Cardiology consult placed, touched based with them, appreciate their help >Agreed with starting Heparin and continuing to monitor troponin overnight, they will see in the am -Repeat trop increased from 420 --> 507 on 2 hour repeat, continue to monitor q6h overnight -Monitor on tele and pulse oximetry -Will keep NPO except meds overnight in case a cath is needed -TTE ordered for tomorrow for further evaluation -Will start the patient on High Dose Atorvastatin tonight and 25 mg PO Metoprolol Tartrate BID -AM A1c and fasting lipid panel ordered -BL SCDs and Heparin drip for DVT PPX -AM CBC, CMP, Mag, PT/INR (2) Hypothyroidism: Plan: -States that his PCP has been monitoring -Will obtain a TSH on repeat labs overnight (3) GERD (gastroesophageal reflux disease): Plan: -Continue omeprazole (4) Hypertension: Plan: -Stable -Not on antihypertensives at home -Monitor BP and HR with initiation of Metoprolol Tartrate tonight (5) Dyslipidemia: Plan: -Starting high intensity atorvastatin tonight (6) Severe obstructive sleep apnea: Plan: -Patient was previously diagnosed, never setup his CPAP machine -Patient will need to start using his CPAP machine HS as his untreated ALANA puts him at high risk for further complications -Will hold HS CPAP tonight to avoid possible symptom confusion with his current NSTEMI, can start tomorrow if he is stable from a cardiac standpoint Plan The patient was discussed with Dr. Nails at the time of the admission History of Present Illness Chief Complaint: Chest pain Primary Care Provider: Wendy Albarran MD Kin is a 42 year old male with a PMH significant for , HTN, dyslipidemia, hypothyroidism, stage 2 CKD, GERD, and ALANA on CPAP who presented to the [facility] ED on 12/02/22 with a chief complaint of chest pain. In the ED the patient was found to be afebrile, hemodynamically stable, and stable on RA. Labs were remarkable for a CBC WNL, stable Cr at 1.12 with stable electrolytes, LFT's WNL, initial high sensitivity trop of 420. Chest Xray was read as "No acute chest disease.". ECG was noted to show NSR without acute ST segment or T-wave inversions. Prior to admission the patient was given 324 mg PO Aspirin. At the time of the exam the patient was resting in bed in no acute distress. He states that he began developing intermittent, left-sided chest pain approximately one week ago. He states that the pain radiates to his neck and down both arms when it is at it's worst. He does not think that the pain is particularly associated with exertion as he has had it both with exertion and at rest. It will last for 1-2 hours, however, today it lasted for approximately 4 hours which is why he came to the ED. At the time of the exam the patient is currently chest pain free. When asked, he states that he took a dose of a muscle relaxer at home earlier today without relief of his symptoms. He currently is only taking Wellbutrin and Omeprazole at home. He is not a smoker and drinks alcohol socially. He states that he received he CPAP machine approximately 2 years ago but has not had a chance to set it up. He denies a previous history of serious bleeding issues such as intracranial hemorrhage, GI bleed, or recent ischemic stroke. He wishes to be a full code and would want his to make medical decisions for him if he could not make them himself. Please refer to Dr. Nails's attestation for any changes to the treatment plan Allergies Allergy/AdvReac Type Severity Reaction Status Date / Time No Known Allergies Allergy Verified 12/02/22 19:52 Home Medications Medication Instructions Recorded Confirmed Type omeprazole 20 mg capsule,delayed 20 mg PO QAM #90 caps 05/26/20 12/02/22 Rx release bupropion HCl 300 mg 24 hr tablet, 300 mg PO QAM #30 tabs 11/05/22 12/02/22 Rx extended release (Wellbutrin XL) Past Med/Surg History Medical History (Updated 12/02/22 @ 20:32 by Cecil Mccarthy PA-C) Abdominal pain Acute kidney injury (nontraumatic) Dyslipidemia GERD (gastroesophageal reflux disease) Hepatitis Hypertension Hypothyroidism Stage 2 chronic kidney disease Surgical History Hx laparoscopic cholecystectomy S/P excision of ganglion cyst Family History Other Hypertension Denies family history of Colon cancer Ovarian cancer Prostate cancer Kidney disease Myocardial infarction Breast cancer Congenital kidney disease Social History (Updated 07/02/21 @ 16:08 by JC Nguyen) Smoking Status: Never smoker Tobacco Type: Cigarettes Age Quit Using Tobacco: 19; packs per day: 0.5; Hx Alcohol Use: Yes Alcohol type: hard liquor Alcohol Intake Frequency: 4 or More x per/Week Hx Substance Use: No Preferred Language: Belarusian Communication Ability: Effective Visual Impairment: No Limitations Hearing Ability: Normal Ware Dresser Required: No Beliefs That Will Affect Care: None marital status: Current Living Situation: Spouse and Other Current Living Situation Comment: spouse, children current occupational status: employed 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 All systems have been reviewed and are otherwise negative. Physical Exam Physical Exam: Physical Exam: General: In no acute distress, stated age, well-nourished, non-toxic appearing HEENT: Normocephalic, atraumatic, no scleral icterus, pupils around round, symmetrical, and reactive to light, moist mucus membranes, trachea midline, no thyromegaly Chest/Pulm: No respiratory distress, symmetrical chest expansion, clear breath sounds throughout Cardiac: RRR, no murmurs noted Abdomen: Negative for ascites and bruising, normoactive bowel sounds, soft, non-tender to palpation throughout Musculoskeletal: Symmetrical and without signs of acute trauma, upper and lower extremities with full ROM, no atrophy, spasticity, or flaccidity Extremities: Radial, dorsalis pedis, and posterior tibial pulses are intact and symmetrical, no edema noted in the BL LE's Skin: Warm, dry, no rashes , lesions, or scars noted Neuro: Alert and oriented to person, place, month, year, and president, no focal defects, CN II-XII tested and intact, no tremors noted Psych: No acute distress, calm and cooperative during the exam Results & Data Results & Data ([facility]) Vital Signs (Past 12 Hours) Vital Signs Temp Pulse Pulse Resp BP BP Pulse Ox 12/02/22 19:04 65 12/02/22 19:01 68 18 166/99 H 98 12/02/22 18:41 63 13 175/99 H 98 12/02/22 16:22 36.5 C 70 18 181/103 H 96 O2 Del Method 12/02/22 19:04 12/02/22 19:01 Room Air 12/02/22 18:41 Room Air 12/02/22 16:22 Room Air Laboratory Results Abnormal lab results 12/02/22 12/02/22 12/02/22 Range/Units 16:34 16:34 19:03 MPV 9.0 L (9.4-12.4) fL [place] # (Auto) 0.64 H (0.11-0.59) K/uL BUN/Creatinine Ratio 9.8 L (10-20) Glucose 105 H (70-99(Fasting)) mg/dl Troponin I High Sens 420.8 H* 507.7 H* D (0-20) pg/ml Diagnostic Findings Chest X-Ray 12/02/22 16:24 XR chest 1V portable CLINICAL HISTORY: Chest pain, nonspecific TECHNIQUE: Single frontal radiograph of the chest was obtained. Comparison: Comparison is made to chest radiograph 02/22/2020 FINDINGS: No lines and tubes are seen. Cardiomegaly is noted. The lungs are clear. No evidence of pleural effusion or pneumothorax. IMPRESSION: No acute chest disease. ACT 112: Negative or not required by law. Electronically signed by: Brodie Colon M.D. 12/02/2022 5:49 PM ECG Additional Comments: Normal sinus rhythm Cannot rule out Anterior infarct , age undetermined Abnormal ECG When compared with ECG of 22-FEB-2020 07:55, Vent. rate has decreased BY 41 BPM Nonspecific T wave abnormality no longer evident in Lateral leads Code Status & VTE Plan Code Status Full code PG Care Time/CCT Total # of Minutes Spent Total Time Spent with Patient: Total time spent is greater than 50% in coordination of care (as documented) at patient's floor/unit and/or counseling patient: Coding [place] [address] INT INP/OBS CARE 3/75MIN Patient Type Established History Comprehensive Exam Comprehensive Medical Decision Making High Complexity Diagnoses Chest pain R07.9 Hypothyroidism E03.9 GERD (gastroesophageal reflux disease) K21.9 Hypertension I10 Dyslipidemia E78.5 Severe obstructive sleep apnea G47.33
[2022-12-02] MEDS ORDERED: Heparin IV Adult Wt-Based Standard WITH Bolus Protocol IV SCH (20:08)
[2022-12-02] MEDS ORDERED: HEPARIN SODIUM/DEXTROSE 25,000 UNITS/500 ML BAG IV SCH (20:15)
[2022-12-02] MEDS ORDERED: HEPARIN SOD (PORCINE) 1000 UNIT/ML IV ONE (20:15)
[2022-12-02] MEDS ORDERED: ATORVASTATIN 40 MG TAB PO ONE (20:30)
[2022-12-02] MEDS ORDERED: METOPROLOL TARTRATE 25 MG TAB PO ONE (20:45)
[2022-12-02] MEDS ORDERED: NITROGLYCERIN SL 0.4 MG/TAB TAB SL PRN (21:19)
--- NOTE | 2022-12-03 00:35 | Emergency Department Note ---
History of Present Illness General Chief Complaint: Chest Pain Stated Complaint: CHEST PAIN,L ARM/SHOULDER PAIN,NAUSEA Time Seen by Provider: 12/02/22 18:52 History of Present Illness Provider Complaint: chest pain Time: 15:00 Duration: now resolved Onset: during rest Pain Location: substernal Pain Radiation: neck Severity: moderate Maximum Pain Intensity: 5 Current Pain Intensity: 0 Quality: + heaviness (pressure) Relieved By: + nothing Exacerbated By: + nothing Context: no recent illness, no recent surgery, no recent immobilization, no recent travel, no trauma/injury, no new medications or no history of DVT/PE Associated symptoms: no nausea, no vomiting, no diaphoresis, no dyspnea, no syncope, no palpitations, no fever or no cough Home Medications Medication Instructions Recorded Confirmed Type omeprazole 20 mg capsule,delayed 20 mg PO QAM #90 caps 05/26/20 12/02/22 Rx release bupropion HCl 300 mg 24 hr tablet, 300 mg PO QAM #30 tabs 11/05/22 12/02/22 Rx extended release (Wellbutrin XL) Allergies Allergy/AdvReac Type Severity Reaction Status Date / Time No Known Allergies Allergy Verified 12/02/22 19:52 Past Med/Surg History Medical History (Updated 12/03/22 @ 00:39 by Ivan Bowling) Abdominal pain Acute kidney injury (nontraumatic) Dyslipidemia GERD (gastroesophageal reflux disease) Hepatitis Hypertension Hypothyroidism Stage 2 chronic kidney disease Surgical History Hx laparoscopic cholecystectomy S/P excision of ganglion cyst Family History Other Hypertension Denies family history of Colon cancer Ovarian cancer Prostate cancer Kidney disease Myocardial infarction Breast cancer Congenital kidney disease Social History Smoking Status: Former smoker Tobacco Type: Cigarettes Age Quit Using Tobacco: 19; packs per day: 0.5; Smoking End Date: over 20 yrs ago; Hx Alcohol Use: Yes Alcohol type: hard liquor Alcohol Intake Frequency: 4 or More x per/Week Hx Substance Use: No Preferred Language: Estonian Communication Ability: Effective Visual Impairment: No Limitations Hearing Ability: Normal Engineer Internship Required: No Beliefs That Will Affect Care: None marital status: Current Living Situation: Spouse Current Living Situation Comment: spouse, children current occupational status: employed 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 Other Information That Helps Us Care for You: No Feels Safe at Home: Yes Safety Concerns: Feels Safe At This Time Childhood Exposure to Second-Hand Smoke: Yes caffeine: Yes Dental Care, Regularly: No Physical Activity Frequency: Daily Seatbelt Use: sometimes Sunscreen Use: Yes Assistive Devices: None Assistive Devices Comment: doesnt wear cpap at home Physical Exam Vital Signs Vital Signs - 24 hr 12/02/22 16:22 12/02/22 18:41 12/02/22 19:01 Temperature 36.5 C Temperature Source Temporal Artery Scan Pulse Rate 70 Pulse Rate [Apical] 63 68 Respiratory Rate 18 13 18 Respiratory Effort / Characteristics Non-Labored Non-Labored Spontaneous Non-Labored Respiratory Depth Normal Normal Normal Blood Pressure 181/103 H Blood Pressure [Right Arm] 175/99 H 166/99 H Blood Pressure Mean 129 Blood Pressure Mean [Right Arm] 124 121 Pulse Oximetry 96 98 98 Oxygen Delivery Method Room Air Room Air Room Air Sepsis Recent Fever Within 48 Hours No Sepsis New/Unexplained Change in Mental Status No Sepsis Action Taken by Nursing No Action Required 12/02/22 19:04 12/02/22 19:30 Temperature Temperature Source Pulse Rate 65 Pulse Rate [Apical] 67 Respiratory Rate 18 Respiratory Effort / Characteristics Respiratory Depth Blood Pressure Blood Pressure [Right Arm] 145/91 H Blood Pressure Mean Blood Pressure Mean [Right Arm] 109 Pulse Oximetry 97 Oxygen Delivery Method Room Air Sepsis Recent Fever Within 48 Hours Sepsis New/Unexplained Change in Mental Status Sepsis Action Taken by Nursing Physical Exam GENERAL: He is oriented to person, place, and time. He appears well-developed and well-nourished. He does not appear distressed. HENT: Exam performed. - Head: Normocephalic and atraumatic. - Mouth/Throat: The oropharynx is clear and moist. No trismus in the jaw. No dental abscesses or uvula swelling. No oropharyngeal exudate or tonsillar abscesses. EYES: Conjunctivae and EOM are normal. Pupils are equal, round, and reactive to light. Right eye exhibits no discharge. Left eye exhibits no discharge. No scleral icterus. NECK: Normal range of motion. Neck supple. No JVD present. No spinous process tenderness present. No rigidity. No tracheal deviation and normal range of motion present. CV: Normal rate, regular rhythm, normal heart sounds and intact distal pulses. There is no peripheral edema. Palpable radial pulses bue. PULM/CHEST: Effort normal and breath sounds normal. No respiratory distress. No stridor. He has no wheezes. He has no rales. ABD: The abdomen is soft. Bowel sounds are normal. He has no distension.There is no tenderness. There is no rebound, no guarding, LYMPH: No cervical adenopathy. NEURO: Motor and sensation grossly intact. Course Course 1851: The patient was evaluated in room C3. A complete history and physical exam was performed Administered Medications Heparin Sodium/Dextrose (Heparin Sodium/Dextrose) 25,000 units in 500 mls @ 32 mls/hr IV .[id number] [facility]; Protocol Stop: 01/01/23 20:14 Last Admin: 12/02/22 20:25 Dose: 1,600 units/hr, 32 mls/hr Documented By: ROM Co-signed By: ERVIN Discontinued Medications Aspirin (Aspirin Chew 324 Mg) 324 mg PO NOW STA Stop: 12/02/22 18:58 Last Admin: 12/02/22 19:01 Dose: 324 mg Documented By: ROM Atorvastatin Calcium (Atorvastatin 40 Mg Tab) 80 mg PO NOW ONE Stop: 12/02/22 20:31 Last Admin: 12/02/22 20:57 Dose: 80 mg Documented By: ROM Heparin Sodium (Porcine) (Heparin Sod (Porcine) 1000 Unit/Ml) 7,000 units IV NOW ONE Stop: 12/02/22 20:16 Last Admin: 12/02/22 20:24 Dose: 7,000 units Documented By: ROM Co-signed By: ERVIN Metoprolol Tartrate (Metoprolol Tartrate 25 Mg Tab) 25 mg PO NOW ONE Stop: 12/02/22 20:46 Last Admin: 12/02/22 20:57 Dose: 25 mg Documented By: ROM Nitroglycerin (Nitroglycerin Sl 0.4 Mg/Tab Tab) Confirm Administered Dose 0.4 mg .ROUTE .STK-MED ONE Stop: 12/02/22 18:56 Last Admin: 12/02/22 19:44 Dose: Not Given Documented By: ROM Medical Decision Making Laboratory Data Attestation: I reviewed the patient's lab results. 12/02/22 16:34 12/02/22 16:34 Labs: Lab Results 12/02/22 12/02/22 12/02/22 Range/Units 16:34 16:34 16:34 WBC 9.33 (4.8-10.8) K/ul RBC 5.43 (4.70-6.10) M/uL Hgb 16.5 (14.0-18.0) g/dl Hct 47.8 (42.0-52.0) % MCV 88.0 (80.0-100.0) fL MCH 30.4 (25.0-34.0) pg MCHC 34.5 (32.0-36.0) g/dL RDW Std Deviation 43.3 (36.4-46.3) fL RDW Coeff of Kimberly 13.5 (11.5-14.5) % Plt Count 325 (130-400) K/uL MPV 9.0 L (9.4-12.4) fL Immature Gran % (Auto) 0.4 % Neut % (Auto) 69.1 % Lymph % (Auto) 22.6 % Lipscomb % (Auto) 6.9 % Eos % (Auto) 0.5 % Baso % (Auto) 0.5 % Neut # (Auto) 6.44 (1.40-6.50) K/uL Lymph # (Auto) 2.11 (1.2-3.4) K/uL Lipscomb # (Auto) 0.64 H (0.11-0.59) K/uL Eos # (Auto) 0.05 (0-0.50) K/uL Baso # (Auto) 0.05 (0-0.2) K/uL Immature Gran # (Auto) 0.04 (0.01-0.20) K/uL PT 10.7 (9.0-12.0) Seconds INR 1.0 (0.9-1.1) APTT 29.6 (21.0-31.0) Seconds PTT Ratio 1.1 Sodium 138 (136-145) mmol/L Potassium 3.9 (3.5-5.1) mmol/L Chloride 102 (98-107) mmol/L Carbon Dioxide 28 (21-32) mmol/L Anion Gap 8 (3-11) BUN 11 (6-23) mg/dl Creatinine 1.12 (0.6-1.4) mg/dl Est Cr Clr Drug Dosing 106.8 ml/min Est GFR ( Amer) 92.7 ml/min Est GFR (Non-Af Amer) 80.0 ml/min BUN/Creatinine Ratio 9.8 L (10-20) Glucose 105 H (70-99(Fasting)) mg/dl Calcium 9.8 (8.5-10.1) mg/dl Total Bilirubin 0.7 (0.2-1.0) mg/dl AST 26 (13-39) U/L ALT 28 (7-52) U/L Alkaline Phosphatase 94 (34-104) U/L Troponin I High Sens 420.8 H* (0-20) pg/ml Total Protein 7.7 (6.0-8.3) gm/dl Albumin 4.4 (3.4-5.0) gm/dl Globulin 3.3 (2.5-4.0) gm/dl Albumin/Globulin Ratio 1.3 (0.9-2) SARS-CoV-2, RNA, NAAT (NEGATIVE) 12/02/22 12/02/22 Range/Units 19:03 19:27 WBC (4.8-10.8) K/ul RBC (4.70-6.10) M/uL Hgb (14.0-18.0) g/dl Hct (42.0-52.0) % MCV (80.0-100.0) fL MCH (25.0-34.0) pg MCHC (32.0-36.0) g/dL RDW Std Deviation (36.4-46.3) fL RDW Coeff of Kimberly (11.5-14.5) % Plt Count (130-400) K/uL MPV (9.4-12.4) fL Immature Gran % (Auto) % Neut % (Auto) % Lymph % (Auto) % Lipscomb % (Auto) % Eos % (Auto) % Baso % (Auto) % Neut # (Auto) (1.40-6.50) K/uL Lymph # (Auto) (1.2-3.4) K/uL Lipscomb # (Auto) (0.11-0.59) K/uL Eos # (Auto) (0-0.50) K/uL Baso # (Auto) (0-0.2) K/uL Immature Gran # (Auto) (0.01-0.20) K/uL PT (9.0-12.0) Seconds INR (0.9-1.1) APTT (21.0-31.0) Seconds PTT Ratio Sodium (136-145) mmol/L Potassium (3.5-5.1) mmol/L Chloride (98-107) mmol/L Carbon Dioxide (21-32) mmol/L Anion Gap (3-11) BUN (6-23) mg/dl Creatinine (0.6-1.4) mg/dl Est Cr Clr Drug Dosing ml/min Est GFR ( Amer) ml/min Est GFR (Non-Af Amer) ml/min BUN/Creatinine Ratio (10-20) Glucose (70-99(Fasting)) mg/dl Calcium (8.5-10.1) mg/dl Total Bilirubin (0.2-1.0) mg/dl AST (13-39) U/L ALT (7-52) U/L Alkaline Phosphatase (34-104) U/L Troponin I High Sens 507.7 H* D (0-20) pg/ml Total Protein (6.0-8.3) gm/dl Albumin (3.4-5.0) gm/dl Globulin (2.5-4.0) gm/dl Albumin/Globulin Ratio (0.9-2) SARS-CoV-2, RNA, NAAT NEGATIVE (NEGATIVE) Imaging Data Chest x-ray: Attestation: I personally reviewed and interpreted this imaging study as follows: My impression: Chest x-ray: Cardiomegaly Radiologist's impression: Chest X-Ray 12/02/22 16:24 XR chest 1V portable CLINICAL HISTORY: Chest pain, nonspecific TECHNIQUE: Single frontal radiograph of the chest was obtained. Comparison: Comparison is made to chest radiograph 02/22/2020 FINDINGS: No lines and tubes are seen. Cardiomegaly is noted. The lungs are clear. No evidence of pleural effusion or pneumothorax. IMPRESSION: No acute chest disease. ACT 112: Negative or not required by law. Electronically signed by: Brodie Colon M.D. 12/02/2022 5:49 PM ECG Data Attestation: I personally reviewed and interpreted this ECG as follows: Additional Comments: EKG 1 at 1628: Sinus rhythm with rate of 69. MS 142 QRS [address] elevation or ST depression. EKG #2 at 1846: Sinus rhythm with rate of 65. MS 136 QRS [address] elevation or ST depression. MDM Narrative Cardiac monitoring: An order was placed for continuous cardiac monitoring. The monitor shows a rate of 60 with sinus rhythm interpreted by me Patient was seen during a time of extreme volume and extreme acuity in the emergency department. Nursing triage protocols were initiated and labs were drawn by protocol in the triage area. Labs within normal limits with exception of elevated troponin 420. Patient reporting no chest pain at this time. Subsequent EKGs within normal limits. Patient will be admitted to the hospitalist team for NSTEMI. Impression & Plan Non-ST elevation DE (NSTEMI) Discharge Plan Visit Data Chief Complaint: Chest Pain Stated Complaint: CHEST PAIN,L ARM/SHOULDER PAIN,NAUSEA ED Provider: Ivan Bowling Discharge Problem: Non-ST elevation DE (NSTEMI) Patient Disposition: Admitted As Inpatient Discharge Instructions Interventions: ED Discharge Assessment Last Done: 12/02/22 21:15
[2022-12-03 01:29] LABS: Thyroid Stimulating Hormone 10.187 uIu/ml (0.300-4.500)
[2022-12-03 02:25] LABS: T4 Free Thyroxine 0.98 ng/dl (0.61-1.60)
[2022-12-03 03:30] LABS: Basophils # (auto) 0.05 K/uL (0-0.2); Basophils % (auto) 0.6 %; Eosinophils # (auto) 0.09 K/uL (0-0.50); Hematocrit (blood only) 46.6 % (42.0-52.0); Hemoglobin 16.4 g/dl (14.0-18.0); Immature Granulocytes # (auto) 0.04 K/uL (0.01-0.20); Immature Granulocytes % (auto) 0.4 %; Lymphocytes # (auto) 2.39 K/uL (1.2-3.4); Lymphocytes % (auto) 26.7 %; Mean Corpuscular Hemoglobin 30.6 pg (25.0-34.0); Mean Corpuscular Hgb Conc 35.2 g/dL (32.0-36.0); Mean Corpuscular Volume 86.9 fL (80.0-100.0); Mean Platelet Volume 9.1 fL (9.4-12.4); Monocytes # (auto) 0.81 K/uL (0.11-0.59); Neutrophils # (auto) 5.58 K/uL (1.40-6.50); Neutrophils % (auto) 62.3 %; Platelet Count 309 K/uL (130-400); RDW Coefficient of Variation 13.5 % (11.5-14.5); RDW Standard Deviation 42.3 fL (36.4-46.3); Red Blood Count 5.36 M/uL (4.70-6.10); White Blood Count 8.96 K/ul (4.8-10.8)
[2022-12-03 03:57] LABS: Prothrombin Time 11.1 Seconds (9.0-12.0)
[2022-12-03 04:10] LABS: Albumin Level 4.1 gm/dl (3.4-5.0); BUN Creatinine Ratio 12.5 (10-20); Bilirubin,Total 1.2 mg/dl (0.2-1.0); Creatinine Clr Calc Pharmacy 124.2 ml/min; Est GFR (African American) 111.8 ml/min; Est GFR (Non-African American) 96.4 ml/min; Magnesium 1.9 mg/dl (1.7-2.4); Potassium 3.8 mmol/L (3.5-5.1)
[2022-12-03 04:11] LABS: Albumin Globulin Ratio 1.4 (0.9-2); Chol HDL Ratio 5.8 (0-5); Globulin 2.9 gm/dl (2.5-4.0)
[2022-12-03 04:13] LABS: Partial Thromboplastin Ratio 2.7
[2022-12-03 04:16] LABS: Partial Thromboplastin Time 75.5 Seconds (21.0-31.0)
[2022-12-03 07:47] LABS: Estimated Average Glucose 126 mg/dl
[2022-12-03] MEDS: buPROPion XL 300 MG TABCR PO SCH (08:13)
[2022-12-03] MEDS: METOPROLOL TARTRATE 25 MG TAB PO SCH ×2 (08:14→19:45)
[2022-12-03] MEDS: PANTOprazole 40 MG TAB PO SCH (08:14)
--- NOTE | 2022-12-03 08:17 | Hospitalist Progress Note ---
Date of Service December 03, 2022 Assessment & Plan (1) Chest pain: Plan: acute unstable serious risk patient seen in presence of his at the bedside and educated Patient having NSTEMI underwent cardiac catheterization with drug-eluting stent to the anterior descending artery with plan for staged PCI of ostial circumflex lesion on 12/04. Patient placed on dual antiplatelet agents metoprolol high-dose of atorvastatin Echocardiogram is pending at this time. A.m. troponin will be checked. (2) Hypothyroidism: Plan: -States that his PCP has been monitoring tsh up but t4 normal continue outpatient monitor (3) GERD (gastroesophageal reflux disease): Plan: -Continue omeprazole (4) Severe obstructive sleep apnea: Plan: -Patient was previously diagnosed, never setup his CPAP machine -Patient will need to start using his CPAP machine HS as his untreated ALANA puts him at high risk for further complications -Will hold HS CPAP tonight to avoid possible symptom confusion with his current NSTEMI, can start tomorrow if he is stable from a cardiac standpoint Admission and Anticipated Discharge Date Admission Date: December 02, 2022 Subjective Patient is resting comfortably sustained a catheterization today had a stent placed in his left anterior descending, patient 100% arc right coronary artery which be left alone and they were going to approach a 90-95 ostial stenosis of the circumflex on 12/04/2022 Physical Exam Physical Exam: Patient resting comfortably. Cath site is clean dry intact good distal pulses and capillary refill Her exam is regular Lungs are clear Results & Data Results & Data ([facility]) Vital Signs (Past 12 Hours) Vital Signs Temp Pulse Resp BP Pulse Ox O2 Del Method 12/03/22 07:51 97.7 F 56 L 18 137/88 95 Room Air 12/03/22 03:32 97.7 F 59 L 14 118/76 99 Room Air 12/02/22 23:37 98.2 F 53 L 14 132/81 99 Room Air 12/02/22 22:04 97.9 F 64 19 131/80 95 Room Air 12/02/22 21:58 97.9 F 64 19 131/80 97 Room Air 12/02/22 21:15 Room Air 12/02/22 20:54 98.1 F 12/02/22 20:30 75 18 145/93 H 95 Room Air Laboratory Results Reviewed CBC Reviewed PRP Reviewed troponins PG Care Time/CCT Total # of Minutes Spent Total Time Spent with Patient: Total time spent is greater than 50% in coordination of care (as documented) at patient's floor/unit and/or counseling patient: Coding Level of Care Code 24560 SUB INP/OBS CARE 2/35MIN Diagnoses Chest pain R07.9 Hypothyroidism E03.9 GERD (gastroesophageal reflux disease) K21.9 Severe obstructive sleep apnea G47.33
--- NOTE | 2022-12-03 10:38 | Pre Anesthesia Assessment ---
Date of Service December 03, 2022 Pre Sedation Assessment Vital Signs Temp Pulse Pulse Resp BP BP Pulse Ox 12/03/22 10:30 75 20 145/96 H 97 12/03/22 10:06 64 12/03/22 07:51 36.5 C 56 L 18 137/88 95 12/03/22 03:32 36.5 C 59 L 14 118/76 99 12/02/22 23:37 36.8 C 53 L 14 132/81 99 12/02/22 22:04 36.6 C 64 19 131/80 95 12/02/22 21:58 36.6 C 64 19 131/80 97 12/02/22 21:15 12/02/22 20:54 36.7 C 12/02/22 20:30 75 18 145/93 H 95 12/02/22 20:00 63 16 133/90 96 12/02/22 19:30 67 18 145/91 H 97 12/02/22 19:04 65 12/02/22 19:01 68 18 166/99 H 98 12/02/22 18:41 63 13 175/99 H 98 12/02/22 16:22 36.5 C 70 18 181/103 H 96 O2 Del Method 12/03/22 10:30 Room Air 12/03/22 10:06 12/03/22 07:51 Room Air 12/03/22 03:32 Room Air 12/02/22 23:37 Room Air 12/02/22 22:04 Room Air 12/02/22 21:58 Room Air 12/02/22 21:15 Room Air 12/02/22 20:54 12/02/22 20:30 Room Air 12/02/22 20:00 Room Air 12/02/22 19:30 Room Air 12/02/22 19:04 12/02/22 19:01 Room Air 12/02/22 18:41 Room Air 12/02/22 16:22 Room Air Cardiovascular RRR, no murmur, no edema Additional Comments: 2+ pulses Respiratory normal respiratory effort, lungs clear to auscultation Pre-Sedation Airway Assessment Smoking Status: Former smoker Hx Sleep Apnea: Yes Short, Thick Neck: No Thyromental Distance: > or= 3.5 Finger Breadths Oral Cavity: + WNL Mallampati Class: II hx of severe ALANA, jaw fracture ASA: ASA2 patient reports he "is a fighter" when coming out of anesthesia. NPO Status Date of Last Intake of Fluids: 12/02/22 Date of Last Intake of Solid Food: 12/02/22 Notes The planned sedation has been discussed with the patient. Informed Consent was obtained. I have identified the patient, determined the appropriateness of sedation and have assessed the patient immediately prior to the procedure. All medicine(s) and interventions are by my order. [facility] [place] Procedure Codes (Charges) Indication for Procedure Indication for procedure: NSTEMI
[2022-12-03] MEDS ORDERED: MIDAZOLAM HCL 1 MG/ML 2ML VIAL ONE ×2 (10:42→11:00)
[2022-12-03] MEDS ORDERED: niCARdipine HCL INJ 2.5 MG/ML 10 ML AMP ONE (10:42)
[2022-12-03] MEDS ORDERED: fentaNYL citrate PF 100 MCG/2 ML VIAL ONE (10:42)
[2022-12-03] MEDS ORDERED: HEPARIN (PORCINE) 1000 UNIT/ML 10 ML (CATH LAB USE ONLY) ONE (10:42)
--- NOTE | 2022-12-03 10:42 | Electrocardiogram Report ---
Test Reason : Blood Pressure : / mmHG Vent. Rate : 065 BPM Atrial Rate : 065 BPM P-R Int : 136 ms QRS Dur : 074 ms QT Int : 418 ms P-R-T Axes : 057 029 068 degrees QTc Int : 434 ms Normal sinus rhythm Nonspecific ST abnormality Anterolateral leads Abnormal ECG When compared with ECG of 02-DEC-2022 16:28, Nonspecific ST abnormality Anterolateral leads now present Confirmed by Humphrey Main ([id number]) on 12/03/2022 10:42:04 AM Referred By: REFERRED SELF Confirmed By:Humphrey Main
[2022-12-03] MEDS ORDERED: NITROGLYCERIN/D5W 100MCG/ML 20ML SYR ONE (10:43)
--- NOTE | 2022-12-03 10:52 | Cardiology Consultation ---
Date of Consultation December 03, 2022 Assessment & Plan (1) Non-ST elevation NC (NSTEMI): Patient will undergo definitive evaluation by coronary angiography and PCI as indicated. I am awaiting the echocardiogram to be completed. We will make additional recommendations regarding medical management pending results of his catheterization and the echocardiogram. (2) Stage 2 chronic kidney disease: This seems to been more of an acute injury than a chronic issue as his current GFR is 96.4. However, we will be cautious to limit the amount of IV contrast utilized for the procedure and use fluid resuscitation liberally. (3) Hypertension: Blood pressure is currently at target. He is taking metoprolol tartrate 25 mg p.o. twice daily. Additional recommendations pending results of catheterization. (4) Dyslipidemia: Assuming that the patient has coronary disease and then he will be considered high risk. Also, his hemoglobin A1c and average daily blood sugar suggest that he is diabetic which would also make him high risk. Under current guidelines, high intensity statin therapy with aggressive LDL reduction is recommended. Target LDL reduction for his baseline LDL of 138 would then be 69. His HDL is also below target and I have encouraged him to resume cardiovascular exercise. (5) Severe obstructive sleep apnea: This has significant implications with regard to cardiac morbidity and mortality. I spoke with him at length regarding compliance with CPAP. He will be seen sleep medicine to obtain the CPAP device which will most be tolerated by him since he becomes easily agitated/claustrophobic with sleeping/sedation. (6) Hypothyroidism: This is also inadequately controlled and has significant implications with regard to cardiovascular health as well as health in general. This will need to be treated and followed as an outpatient. History of Present Illness Reason for Consultation: Chest pain, elevated troponin Attending Physician: Thomas Trivedi MD History of Present Illness 42-year-old gentleman with a history of hypertension, dyslipidemia, hypothyroidism, severe obstructive sleep apnea not using CPAP, and acute on chronic kidney failure (stage II) presented with 4 hours of substernal chest pain with radiation to the neck and left arm. He had been having preceding symptoms both at rest and with exertion for at least a week which were intermittent and much shorter in duration. In the ED he received aspirin and nitroglycerin. His chest pain resolved. Initial troponin was mildly elevated with subsequent high sensitivity troponins being very elevated over 4000 as his last measurement. His EKG did not demonstrate any ischemic changes. I was asked to see him regarding the elevated troponins. Currently, he denies any ongoing chest pain, shortness of breath, recent syncope, near syncope, orthopnea, PND, racing heartbeat, palpitations, or edema. He denies smoking or chewing tobacco use. He only drinks socially. 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 He tells me that the prior acute kidney injury was secondary to creatine use and heavy lifting. We discussed recommendations for coronary angiography given his elevated troponin and typical symptoms. The risk include but are not limited to; , stroke, NC, renal failure, infection, adverse drug reaction, radiation exposure, need for emergent surgery, and bleeding. Additionally we discussed the lack of onsite cardiac surgical backup in the event of emergency and plan for air evacuation if needed. Patient's questions were answered in detail. He voiced understanding and wished to proceed with catheterization. The consent is signed in the chart. Allergies Allergy/AdvReac Type Severity Reaction Status Date / Time No Known Allergies Allergy Verified 12/02/22 19:52 Home Medications Medication Instructions Recorded Confirmed Type omeprazole 20 mg capsule,delayed 20 mg PO QAM #90 caps 05/26/20 12/02/22 Rx release bupropion HCl 300 mg 24 hr tablet, 300 mg PO QAM #30 tabs 11/05/22 12/02/22 Rx extended release (Wellbutrin XL) Patient History Medical History Abdominal pain Acute kidney injury (nontraumatic) Dyslipidemia GERD (gastroesophageal reflux disease) Hepatitis Hypertension Hypothyroidism Stage 2 chronic kidney disease Surgical History Hx laparoscopic cholecystectomy S/P excision of ganglion cyst Family History Other Hypertension Denies family history of Colon cancer Ovarian cancer Prostate cancer Kidney disease Myocardial infarction Breast cancer Congenital kidney disease Social History Smoking Status: Former smoker Tobacco Type: Cigarettes Age Quit Using Tobacco: 19; packs per day: 0.5; Smoking End Date: over 20 yrs ago; Hx Alcohol Use: Yes Alcohol type: hard liquor Alcohol Intake Frequency: 4 or More x per/Week Hx Substance Use: No Preferred Language: Khmer Communication Ability: Effective Visual Impairment: No Limitations Hearing Ability: Normal Machine Greaser Required: No Beliefs That Will Affect Care: None marital status: Current Living Situation: Spouse Current Living Situation Comment: spouse, children current occupational status: employed 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 Physical Exam Constitutional: WD/WN, vitals as above (Heavily muscled) Eyes: Extraocular muscles intact. Sclera are anicteric. ENMT: Oral mucosa is pink, moist, and intact. Neck: Thick, no JVD or bruit Respiratory: Clear to auscultation bilaterally. No wheezing, rhonchi, or rales. Cardiovascular: Regular rate and rhythm. Do not appreciate any gallops, rubs, or murmurs. Musculoskeletal: no cyanosis or clubbing, extremities motor strength 5/5 Neurologic: Cognition is intact. Speech is fluent. No focal deficits. No tremor. Psychiatric: A+Ox3, euthymic affect (Slightly anxious) Results & Data ([facility]) Vital Signs (Past 12 Hours) Vital Signs Temp Pulse Pulse Resp BP Pulse Ox O2 Del Method 12/03/22 10:30 75 20 145/96 H 97 Room Air 12/03/22 10:06 64 12/03/22 07:51 36.5 C 56 L 18 137/88 95 Room Air 12/03/22 03:32 36.5 C 59 L 14 118/76 99 Room Air 12/02/22 23:37 36.8 C 53 L 14 132/81 99 Room Air PG Care Time/CCT Total # of Minutes Spent Total Time Spent with Patient: Total time spent is greater than 50% in coordination of care (as documented) at patient's floor/unit and/or counseling patient: [place] [address] IN/OBS CONSULT LVL 5,80M Patient Type New Diagnoses Non-ST elevation NC (NSTEMI) I21.4 Stage 2 chronic kidney disease N18.2 Hypertension I10 Dyslipidemia E78.5 Severe obstructive sleep apnea G47.33 Hypothyroidism E03.9
[2022-12-03] MEDS ORDERED: diphenhydrAMINE 50 MG/ML VIAL ONE (11:02)
[2022-12-03] MEDS ORDERED: TICAGRELOR 90 MG TAB ONE (11:44)
[2022-12-03] MEDS ORDERED: ASPIRIN 81 MG CHEW ONE (11:44)
[2022-12-03 11:58] LABS: Partial Thromboplastin Time 54.5 Seconds (21.0-31.0)
--- NOTE | 2022-12-03 12:09 | Post Anesthesia Assessment ---
Date of Service December 03, 2022 Post Sedation Assessment Vital Signs Temp Pulse Pulse Resp BP BP BP 12/03/22 11:55 66 20 131/87 12/03/22 10:30 75 20 145/96 H 12/03/22 10:06 64 12/03/22 07:51 36.5 C 56 L 18 137/88 12/03/22 03:32 36.5 C 59 L 14 118/76 12/02/22 23:37 36.8 C 53 L 14 132/81 12/02/22 22:04 36.6 C 64 19 131/80 12/02/22 21:58 36.6 C 64 19 131/80 12/02/22 21:15 12/02/22 20:54 36.7 C 12/02/22 20:30 75 18 145/93 H 12/02/22 20:00 63 16 133/90 12/02/22 19:30 67 18 145/91 H 12/02/22 19:04 65 12/02/22 19:01 68 18 166/99 H 12/02/22 18:41 63 13 175/99 H 12/02/22 16:22 36.5 C 70 18 181/103 H Pulse Ox O2 Del Method 12/03/22 11:55 95 Room Air 12/03/22 10:30 97 Room Air 12/03/22 10:06 12/03/22 07:51 95 Room Air 12/03/22 03:32 99 Room Air 12/02/22 23:37 99 Room Air 12/02/22 22:04 95 Room Air 12/02/22 21:58 97 Room Air 12/02/22 21:15 Room Air 12/02/22 20:54 12/02/22 20:30 95 Room Air 12/02/22 20:00 96 Room Air 12/02/22 19:30 97 Room Air 12/02/22 19:04 12/02/22 19:01 98 Room Air 12/02/22 18:41 98 Room Air 12/02/22 16:22 96 Room Air Recovery Score Activity: Moves 4 extremities Respiration: Deep Breath/Cough Circulation: +/-20% PreAnes Value Consciousness: Fully Awake Oxygen Saturation: > 92% On Room Air Post Anesthesia Score: 10 Discharge Sedation Level of Care: Fast Track Phase II Post Sedation Plan On clinical assessment, the patient appears to have tolerated the sedation without complications. Patient is recovering as anticipated. Patient will continue to be monitored by nursing and may be discharged when sedation discharge criteria are met per below protocol. Upon Completions of procedure up to 15 minutes continue every 5 minute vital signs and the P.A.R. score; then discharge to a Phase I or Fast Track to Phase II per the following guidelines: * Discharge Patient to appropriate Phase II area if PAR is 8 or greater or return to pre- procedure baseline. The post - procedure orders will be as directed. * If PAR score is less than 8 or not return to pre-procedure baseline then patient will follow Phase I monitoring till PAR is reached for Phase II. The Phase I may be done in procedure room or may call to secure a Phase I area. * If naloxone or flumazenil are used for reversal, hold in Phase I for continued monitoring from when last reversal dose was given for a minimum of 60 minutes or longer pending the nurse and/or physician discretion of patient condition before discharge to Phase II. Please call the Sedation Physician to re-evaluate and complete post-note for discharge to Phase II area. Do NOT discharge from procedure sedation or Phase 1 until post- sedation evaluation note is complete by procedure /sedation MD Sedation Discharge Instructions to be given to the patient at discharge to home. [facility] Procedure Codes (Charges) Indication for Procedure Indication for procedure: NSTEMI Sedation/Anesthesia Procedure 1: Sedation/Anesthesia: 73413 Mod Sedation by the same physician;Init15 Min Child Age 5 & Up Total Sedation Time (minutes): 45 Procedure 2: Sedation/Anesthesia: 90093 Mod Sedation by the same physician; Ea [id number] Minutes (additional 30 min) Total Sedation Time (minutes): 45
--- NOTE | 2022-12-03 12:27 | Electrocardiogram Report ---
Test Reason : Blood Pressure : / mmHG Vent. Rate : 069 BPM Atrial Rate : 069 BPM P-R Int : 142 ms QRS Dur : 070 ms QT Int : 400 ms P-R-T Axes : 054 028 048 degrees QTc Int : 428 ms Normal sinus rhythm Normal ECG When compared with ECG of 22-FEB-2020 07:55, Vent. rate has decreased BY 41 BPM Nonspecific T wave abnormality no longer evident in Lateral leads Confirmed by Humphrey Main ([id number]) on 12/03/2022 12:26:52 PM Referred By: REFERRED SELF Confirmed By:Humphrey Main
--- NOTE | 2022-12-03 12:45 | Electrocardiogram Report ---
Test Reason : Blood Pressure : / mmHG Vent. Rate : 062 BPM Atrial Rate : 062 BPM P-R Int : 146 ms QRS Dur : 078 ms QT Int : 430 ms P-R-T Axes : 062 024 041 degrees QTc Int : 436 ms Normal sinus rhythm Normal ECG When compared with ECG of 02-DEC-2022 18:46, ST no longer depressed in Anterior leads Confirmed by Humphrey Main ([id number]) on 12/03/2022 12:44:33 PM Referred By: REFERRED SELF Confirmed By:Humphrey Main
--- NOTE | 2022-12-03 12:58 | Cardiac Catheterization ---
ACC Data: Machine Deicer Element Winder Cardiac Status Clinical evaluation leading to the procedure CAD Presenation: Non STEMI Anginal Classification: CCS IV Heart Failure: No Cardiogenic Shock within 24 Hours: No Cardiac Arrest within 24 Hours: No Imaging Studies Past 6 Months: No Stress Studies Past 6 Months: No STEMI OR Non-STEMI Symptom Onset Date: 12/02/22 Coronary Anatomy Dominant: Co-Dominant Left Main (% Stenosis): Normal (Mild) LAD (% Stenosis): Proximal (Mild) and Mid (90+ percent) D1 (% Stenosis): Normal D2 (% Stenosis): Normal ( mild) Circumflex (% Stenosis): Distal (Complex ulcerated 95+ percent) OM1 (% Stenosis): Ostial (95%) OM2 (% Stenosis): Proximal (90 to 95%) OM3 (% Stenosis): Normal L PL1 (% Stenosis): Ostial (Extending to proximal 80%) L PDA (% Stenosis): Normal (Mild diffuse) RCA (% Stenosis): Proximal (Mild) and Mid (Moderate calcification, 100% chronic total occlusion) R PDA (% Stenosis): Normal (Diffuse mild, fills via right to right and left to right collateralization) Left Ventricular Angiography EF (%): 45 to 50% Wall Motion: Inferior (Hypokinetic) Mitral Regurgitation: 1+ Diagnostic Physicians Name: Santosh Kennedy MD, PhD Closure Device Percutaneous Entry Location: Radial Closure Device: Radial Band Recommendations: Medical Therapy and/or Counseling and PCI without planned CABG PCI Indication: PCI for high risk Non-KALEN Lesion Segment Name: Mid to distal LAD Culprit Artery: Yes Stenosis Prior to Rx (%): 90% Chronic Total Occlusion: No Pre-Procedure LORA Flow: 2 Previously Treated Lesion: No Lesion Complexity: Non-High/Non-C Lesion Length (mm): 12 mm Thrombus Present: No Bifurcation Lesion: Yes Guidewire Across Lesion: Yes Intraprocedure Events Significant Disection: No Cardiac Cath Procedure Full Procedure Date December 03, 2022 Pre-Procedure Diagnosis Pre-Procedure Diagnosis: Non STEMI AUC Score AUC Score: 07 Post-Procedure Diagnosis Post-Procedure Diagnosis: Severe CAD Procedure(s) Performed Procedure(s) Performed: Coronary Angiography, Left Heart Cath, LV Angiography and Drug Eluting Stent Presetter Operator Santosh Kennedy MD, PhD [employer] Middleware Developer(s) [facility] Estimated Blood Loss Estimated Blood Loss: None (Less than 10 mL) Medication(s) Medication(s): Diphenhydramine, Fentanyl, Heparin, Lidocaine 1%, Nicardipine, Nitroglycerin and Versed Summary of Findings Brief description: Patient was brought to the cardiac catheterization suite where he was shaved and prepped in a sterile fashion. Sedated using IV Versed, fentanyl, and Benadryl. Soft tissues of the right wrist were anesthetized using 2 mL of 1% Xylocaine. The right radial artery was accessed with a modified Seldinger technique and a 6 Azerbaijani radial artery glide sheath was placed. Patient was provided anticoagulation with IV heparin and antispasmodics including nicardipine and nitroglycerin. All catheters were advanced and exchanged over a 0.035 J-tip wire. Left coronary angiography in orthogonal views with a 5 Azerbaijani Ovid 4 diagnostic catheter. Right coronary angiography in orthogonal views with a 5 Azerbaijani Ovid 4 diagnostic catheter. Left heart cath and left ventriculogram were performed with a 5 Azerbaijani angled pigtail catheter. Diagnostic catheters were removed. I reviewed the findings with the patient. We discussed referral for coronary artery bypass grafting versus staged PCI. This discussion included full risks and benefits of each revascularization strategy. He wished to proceed with stenting. Therefore, we proceeded with PCI. ACT was checked and additional heparin was provided as needed to maintain therapeutic ACT. A 6 Azerbaijani EBU 3.0 guide catheter was used to engage the left main coronary artery. Through this, a BMW reversal guidewire was advanced and positioned distally in the LAD. The lesion was predilated using a 2.5 x 12 mm PTCA balloon up to 14 nhi. Lesion was stented using a 3.0 x 18 mm drug-eluting stent. A second inflation to 2 bar above the nominal pressure was then performed. Stent balloon was removed. The proximal and mid stent were then postdilated using a 3.25 x 8 mm noncompliant balloon. Balloon and coronary guidewire were removed. Final angiographic evaluation was performed in orthogonal views. Patient was provided Brilinta 180 mg p.o. and aspirin 81 mg p.o. The coronary guide catheter was removed. Radial artery sheath was removed and hemostasis was obtained using the TR band. Patient remained hemodynamically stable and asymptomatic. He was returned to the recovery area. This ended the case. Coronary angiography and left ventriculogram findings: LMT: Large-caliber vessel which bifurcates into the LAD and circumflex. It is short in length with no more than mild disease. LAD: This is a large-caliber and transapical vessel. It gives a relatively high arising medium caliber branching first diagonal. The diagonal has mild disease and the proximal LAD has mild plaques. The mid LAD has diffuse mild disease in the vessel gives a large caliber branching second diagonal. At the level of the second diagonal ostium the mid LAD and early portion of the distal LAD have an eccentric lesion of 90%. There is LORA II flow beyond the LAD lesion in both the diagonal branch and the distal LAD. The distal LAD itself has scattered mild disease less than 30%. LCx: This is large caliber and codominant. Travels in the AV groove where its first branch arises high and is small to medium in caliber. This has ostial to proximal 90 to 95% stenosis. Only a short distance further in the AV groove there is a medium caliber OM 2 which also has proximal 95% stenosis. Then there is a small OM 3 after which a large atrial branch arises. The distal circumflex remains large at this point and there is a long complex lesion of at least 95% with an ulcerated portion of the plaque. This disease continues into the ostial and proximal portion of a large multi branching posterolateral. It appears about 80% stenosed at that level. The most distal AV groove circumflex after the complex lesion also provides a medium to large caliber relatively short PDA which has mild diffuse disease. RCA: This is a large-caliber codominant vessel. Proximal segment has mild diffuse disease and then provides a large branching RV marginal. Just after this the mid segment is moderately calcified and appears to have 100% chronic total occlusion. The distal PDA beyond this fills late via right to right collateralization and even further delayed the long PDA fills via right to right collateralization. There is noted to be competitive flow in the PDA arising from left to right collateralization. LVG: LVEF in the RAE view appears to be 45 to 50% There is significant inferior hypokinesis No more than 1+ mitral regurgitation PCI of LAD: 0% residual stenosis post PCI No evidence of dissection or perforation post PCI LORA-3 flow post PCI Recommendations: 1. Patient will remain on dual antiplatelet therapy with aspirin and Brilinta for 1 to 2 years. 2. Patient will undergo staged PCI of the circumflex. 3. We have chosen to utilize medical management with regard to any anginal symptoms which may persist after PCI completed related to residual IRONING WORKER of the RCA. 4. Guideline directed medical therapy for secondary prevention of coronary disease to include; low-dose aspirin, high intensity statin therapy, beta- tereza, and KWADWO inhibitor/ARB as tolerated 5. We recommend aggressive risk factor modification including treatment of thy roid disease, diabetes, hypertension, dyslipidemia, and obstructive sleep apnea. Hemodynamics Rest Ao:: 122/95 mmHg Final Ao: 132/82 mmHg LV: 123/6 mmHg, LVEDP 7 mmHg Recommendations Recommendations: Medical Therapy and/or Counseling and PCI without planned CABG Radiation Exposure (mGy) 1986 mGy, fluoroscopy time 8.1 minutes Contrast (mls) 160 mL Fluids (cc crystalloids) Fluids (cc crystalloids): 100 mL normal saline Anesthesia 3 mg IV Versed, 75 mcg IV fentanyl, 25 mg IV Benadryl Procedural Complication(s) None Disposition Recovery Room\PACU I attest to the content of the Intraoperative Record and any orders documented therein. Any exceptions are noted below. [facility] Card Cath Procedure Codes Cardiac Catheterization Procedure 1: Cardiovascular Cath Procedures: 54180 Coronaries and LHC (+/-LV) Moderate Sedation Procedure 1: Sedation/Anesthesia: 99314 Mod Sedation by the same physician;Init15 Min Child Age 5 & Up (Initial 15-minute (total 45 minutes)) Procedure 2: Sedation/Anesthesia: 24748 Mod Sedation by the same physician; Ea [id number] Minutes (Additional 30-minute (total 45 min)) Stenting Procedure 1: Cardiovascular Stent Procedures: 63126 Perc transcatheter placement of intracoronary stent(s), with ang (LAD) PG Care Time/CCT Total # of Minutes Spent Total Time Spent with Patient: Total time spent is greater than 50% in coordination of care (as documented) at patient's floor/unit and/or counseling patient:
[2022-12-03] MEDS: ATORVASTATIN 40 MG TAB PO SCH (19:44)
[2022-12-04 06:31] LABS: Basophils # (auto) 0.05 K/uL (0-0.2); Basophils % (auto) 0.4 %; Eosinophils # (auto) 0.04 K/uL (0-0.50); Eosinophils % (auto) 0.3 %; Hematocrit (blood only) 52.5 % (42.0-52.0); Hemoglobin 18.1 g/dl (14.0-18.0); Immature Granulocytes # (auto) 0.07 K/uL (0.01-0.20); Immature Granulocytes % (auto) 0.6 %; Lymphocytes # (auto) 1.67 K/uL (1.2-3.4); Lymphocytes % (auto) 14.2 %; Mean Corpuscular Hemoglobin 30.3 pg (25.0-34.0); Mean Corpuscular Hgb Conc 34.5 g/dL (32.0-36.0); Mean Corpuscular Volume 87.9 fL (80.0-100.0); Monocytes % (auto) 6.8 %; Neutrophils # (auto) 9.15 K/uL (1.40-6.50); Neutrophils % (auto) 77.7 %; Platelet Count 330 K/uL (130-400); RDW Coefficient of Variation 13.6 % (11.5-14.5); RDW Standard Deviation 43.4 fL (36.4-46.3); Red Blood Count 5.97 M/uL (4.70-6.10); White Blood Count 11.78 K/ul (4.8-10.8)
[2022-12-04 06:50] LABS: Albumin Globulin Ratio 1.4 (0.9-2); Albumin Level 4.5 gm/dl (3.4-5.0); BUN Creatinine Ratio 15.3 (10-20); Bilirubin,Total 1.7 mg/dl (0.2-1.0); Calcium 10.3 mg/dl (8.5-10.1); Est GFR (African American) 93.8 ml/min; Est GFR (Non-African American) 80.9 ml/min; Globulin 3.3 gm/dl (2.5-4.0); Potassium 4.4 mmol/L (3.5-5.1); Total Protein 7.8 gm/dl (6.0-8.3)
[2022-12-04 07:00] LABS: Troponin I High Sensitivity 1355.4 pg/ml (0-20)
[2022-12-04 07:20] LABS: INR 1.1 (0.9-1.1); Prothrombin Time 11.6 Seconds (9.0-12.0)
[2022-12-04] MEDS: TICAGRELOR 90 MG TAB PO SCH ×2 (08:14→20:16)
[2022-12-04] MEDS: buPROPion XL 300 MG TABCR PO SCH (08:14)
[2022-12-04] MEDS: ASPIRIN 81 MG ECTAB PO SCH (08:14)
[2022-12-04] MEDS: PANTOprazole 40 MG TAB PO SCH (08:14)
[2022-12-04] MEDS: METOPROLOL TARTRATE 25 MG TAB PO SCH ×2 (08:14→20:16)
--- NOTE | 2022-12-04 13:26 | Hospitalist Progress Note ---
Date of Service December 04, 2022 Assessment & Plan (1) Chest pain: Plan: acute unstable serious risk patient seen in presence of his at the bedside and educated Patient having NSTEMI underwent cardiac catheterization with drug-eluting stent to the anterior descending artery with plan for staged PCI of ostial circumflex lesion on 12/04. Patient placed on dual antiplatelet agents metoprolol high-dose of atorvastatin Echocardiogram is pending A.m. troponin reducing I personally spoke with cardiology discussion of why catheterization is postponed due to renal dysfunction on 12/04/2022 (2) Hypothyroidism: Plan: Chronic control is unknown impart some risk-States that his PCP has been monitoring tsh up but t4 normal continue outpatient monitor (3) GERD (gastroesophageal reflux disease): Plan: -Chronic and controlled continue omeprazole (4) Severe obstructive sleep apnea: Plan: -Chronic uncontrolled moderate risk the patient patient was previously diagnosed, never setup his CPAP machine -Patient will need to start using his CPAP machine HS as his untreated ALANA puts him at high risk for further complications -Will hold HS CPAP tonight to avoid possible symptom confusion with his current NSTEMI, can start tomorrow if he is stable from a cardiac standpoint Admission and Anticipated Discharge Date Admission Date: December 02, 2022 Subjective Patient is resting comfortably sustained a catheterization 12/03/22 had a stent placed in his left anterior descending, patient 100% occluded right coronary artery which be left alone and cardiology going to approach a 90-95 ostial stenosis of the circumflex on 12/05/2022, initial discussion of doing 12/04 postponed due to consideration of renal function and dye load Physical Exam Physical Exam: Patient resting comfortably. Cath site is clean dry intact good distal pulses and capillary refill Her exam is regular Lungs are clear Results & Data Results & Data ([facility]) Vital Signs (Past 12 Hours) Vital Signs Temp Pulse Resp BP BP Pulse Ox O2 Del Method 12/04/22 11:11 97.7 F 60 20 158/100 H 97 Room Air 12/04/22 06:57 97.9 F 68 20 158/63 H 98 Room Air 12/04/22 04:08 97.9 F 66 19 162/94 H 96 Room Air Laboratory Results Reviewed a.m. troponin Reviewed CBC Reviewed PRP PG Care Time/CCT Total # of Minutes Spent Total Time Spent with Patient: Total time spent is greater than 50% in coordination of care (as documented) at patient's floor/unit and/or counseling patient: Coding Level of Care Code 50036 SUB INP/OBS CARE 350MIN Diagnoses Chest pain R07.9 Hypothyroidism E03.9 GERD (gastroesophageal reflux disease) K21.9 Severe obstructive sleep apnea G47.33
[2022-12-04] MEDS: ATORVASTATIN 40 MG TAB PO SCH (20:16)
[2022-12-05] MEDS: SODIUM CHLORIDE 0.9% 1000ML 1,000 ML IV SCH ×2 (00:04→11:38)
[2022-12-05 06:30] LABS: Basophils # (auto) 0.04 K/uL (0-0.2); Basophils % (auto) 0.3 %; Eosinophils # (auto) 0.05 K/uL (0-0.50); Eosinophils % (auto) 0.4 %; Hematocrit (blood only) 51.9 % (42.0-52.0); Immature Granulocytes # (auto) 0.05 K/uL (0.01-0.20); Immature Granulocytes % (auto) 0.4 %; Lymphocytes # (auto) 1.54 K/uL (1.2-3.4); Lymphocytes % (auto) 12.9 %; Mean Corpuscular Hemoglobin 30.5 pg (25.0-34.0); Mean Corpuscular Hgb Conc 34.7 g/dL (32.0-36.0); Mean Corpuscular Volume 87.8 fL (80.0-100.0); Monocytes # (auto) 0.87 K/uL (0.11-0.59); Monocytes % (auto) 7.3 %; Neutrophils # (auto) 9.39 K/uL (1.40-6.50); Neutrophils % (auto) 78.7 %; Platelet Count 328 K/uL (130-400); RDW Coefficient of Variation 13.3 % (11.5-14.5); RDW Standard Deviation 42.9 fL (36.4-46.3); Red Blood Count 5.91 M/uL (4.70-6.10); White Blood Count 11.94 K/ul (4.8-10.8)
[2022-12-05 06:50] LABS: Albumin Globulin Ratio 1.3 (0.9-2); Albumin Level 4.4 gm/dl (3.4-5.0); BUN Creatinine Ratio 17.2 (10-20); Bilirubin,Total 1.5 mg/dl (0.2-1.0); Calcium 9.5 mg/dl (8.5-10.1); Creatinine Clr Calc Pharmacy 101.5 ml/min; Est GFR (African American) 88.9 ml/min; Est GFR (Non-African American) 76.7 ml/min; Globulin 3.3 gm/dl (2.5-4.0); Magnesium 1.9 mg/dl (1.7-2.4); Potassium 3.9 mmol/L (3.5-5.1); Total Protein 7.7 gm/dl (6.0-8.3)
[2022-12-05 07:11] LABS: INR 1.1 (0.9-1.1); Prothrombin Time 11.4 Seconds (9.0-12.0)
[2022-12-05] MEDS ORDERED: BENZOCAINE/TETRACAIN/BUTAM 50 APPLN/5 GM CAN EXT ONE (07:30)
[2022-12-05] MEDS: TICAGRELOR 90 MG TAB PO SCH (08:03)
[2022-12-05] MEDS: ASPIRIN 81 MG ECTAB PO SCH (08:03)
[2022-12-05] MEDS: METOPROLOL TARTRATE 25 MG TAB PO SCH (08:04)
[2022-12-05] MEDS: PANTOprazole 40 MG TAB PO SCH (08:04)
[2022-12-05] MEDS: buPROPion XL 300 MG TABCR PO SCH (08:05)
--- NOTE | 2022-12-05 09:59 | Pre Anesthesia Assessment ---
Date of Service December 05, 2022 Pre Sedation Assessment Vital Signs Temp Pulse Pulse Resp BP Pulse Ox O2 Del Method 12/05/22 09:23 66 18 144/95 H 98 Room Air 12/05/22 07:28 37.1 C 69 18 146/83 H 97 Room Air 12/05/22 03:22 36.5 C 62 18 124/82 99 Room Air 12/05/22 00:01 36.7 C 59 L 18 127/83 97 Room Air 12/04/22 20:16 36.4 C L 75 18 165/100 H 97 Room Air 12/04/22 16:13 36.3 C L 74 20 152/98 H 98 Room Air 12/04/22 15:25 77 12/04/22 11:11 36.5 C 60 20 158/100 H 97 Room Air Cardiovascular RRR, no murmur, no edema Respiratory normal respiratory effort, lungs clear to auscultation Pre-Sedation Airway Assessment Smoking Status: Former smoker Hx Sleep Apnea: No Short, Thick Neck: No Thyromental Distance: > or= 3.5 Finger Breadths Oral Cavity: + WNL Mallampati Class: III ASA: ASA3 NPO Status Date of Last Intake of Fluids: 12/04/22 Time of Last Intake of Fluids: 23:00 Date of Last Intake of Solid Food: 12/04/22 Time of Last Intake of Solid Foods: 18:00 Notes The planned sedation has been discussed with the patient. Informed Consent was obtained. I have identified the patient, determined the appropriateness of sedation and have assessed the patient immediately prior to the procedure. All medicine(s) and interventions are by my order.
[2022-12-05] MEDS ORDERED: niCARdipine HCL INJ 2.5 MG/ML 10 ML AMP ONE (10:07)
[2022-12-05] MEDS ORDERED: fentaNYL citrate PF 100 MCG/2 ML VIAL ONE ×2 (10:07→11:04)
[2022-12-05] MEDS ORDERED: MIDAZOLAM HCL 1 MG/ML 2ML VIAL ONE ×2 (10:07→10:30)
[2022-12-05] MEDS ORDERED: HEPARIN (PORCINE) 1000 UNIT/ML 10 ML (CATH LAB USE ONLY) ONE (10:07)
[2022-12-05] MEDS ORDERED: NITROGLYCERIN/D5W 100MCG/ML 20ML SYR ONE (10:08)
[2022-12-05] MEDS ORDERED: diphenhydrAMINE 50 MG/ML VIAL ONE (10:29)
[2022-12-05] MEDS ORDERED: LIDOCAINE 1% LOCAL 20 ML VIAL ONE (11:18)
--- NOTE | 2022-12-05 12:32 | Electrocardiogram Report ---
Test Reason : Blood Pressure : / mmHG Vent. Rate : 067 BPM Atrial Rate : 067 BPM P-R Int : 146 ms QRS Dur : 072 ms QT Int : 430 ms P-R-T Axes : 051 011 -09 degrees QTc Int : 454 ms Poor data quality, interpretation may be adversely affected Normal sinus rhythm Inferior infarct , age undetermined T-wave inversion in Inferior leads Abnormal ECG When compared with ECG of 03-DEC-2022 09:41, Inverted T waves have replaced nonspecific T wave abnormality in Inferior leads Confirmed by Humphrey Main ([id number]) on 12/05/2022 12:31:51 PM Referred By: REFERRED SELF Confirmed By:Humphrey Main
--- NOTE | 2022-12-05 15:03 | Post Anesthesia Assessment ---
Date of Service December 05, 2022 Post Sedation Assessment Vital Signs Temp Pulse Pulse Resp BP Pulse Ox O2 Del Method 12/05/22 13:54 36.4 C L 71 16 140/91 94 Room Air 12/05/22 13:30 36.8 C 67 18 141/88 H 97 Room Air 12/05/22 12:54 36.8 C 68 18 142/91 H 96 Room Air 12/05/22 12:24 36.6 C 62 18 130/87 96 Room Air 12/05/22 12:14 36.9 C 68 17 134/88 96 Room Air 12/05/22 11:54 36.8 C 67 18 149/94 H 93 Room Air 12/05/22 11:39 37.0 C 67 18 143/90 H 94 Room Air 12/05/22 11:30 72 16 127/84 96 Room Air 12/05/22 11:15 67 16 135/89 96 Room Air 12/05/22 10:43 74 12/05/22 09:23 66 18 144/95 H 98 Room Air 12/05/22 07:28 37.1 C 69 18 146/83 H 97 Room Air 12/05/22 03:22 36.5 C 62 18 124/82 99 Room Air 12/05/22 00:01 36.7 C 59 L 18 127/83 97 Room Air 12/04/22 20:16 36.4 C L 75 18 165/100 H 97 Room Air 12/04/22 16:13 36.3 C L 74 20 152/98 H 98 Room Air 12/04/22 15:25 77 Recovery Score Activity: Moves 4 extremities Respiration: Deep Breath/Cough Circulation: +/-20% PreAnes Value Consciousness: Fully Awake Oxygen Saturation: > 92% On Room Air Post Anesthesia Score: 10 Discharge Sedation Level of Care: Fast Track Phase II Post Sedation Plan On clinical assessment, the patient appears to have tolerated the sedation without complications. Patient is recovering as anticipated. Patient will continue to be monitored by nursing and may be discharged when sedation discharge criteria are met per below protocol. Upon Completions of procedure up to 15 minutes continue every 5 minute vital signs and the P.A.R. score; then discharge to a Phase I or Fast Track to Phase II per the following guidelines: * Discharge Patient to appropriate Phase II area if PAR is 8 or greater or return to pre- procedure baseline. The post - procedure orders will be as directed. * If PAR score is less than 8 or not return to pre-procedure baseline then patient will follow Phase I monitoring till PAR is reached for Phase II. The Phase I may be done in procedure room or may call to secure a Phase I area. * If naloxone or flumazenil are used for reversal, hold in Phase I for continued monitoring from when last reversal dose was given for a minimum of 60 minutes or longer pending the nurse and/or physician discretion of patient condition before discharge to Phase II. Please call the Sedation Physician to re-evaluate and complete post-note for discharge to Phase II area. Do NOT discharge from procedure sedation or Phase 1 until post- sedation evaluation note is complete by procedure /sedation MD Sedation Discharge Instructions to be given to the patient at discharge to home. [facility] Procedure Codes (Charges) Indication for Procedure Indication for procedure: NSTEMI severe CAD Sedation/Anesthesia Procedure 1: Sedation/Anesthesia: 71659 Mod Sedation by the same physician;Init15 Min Child Age 5 & Up (Initial 15 minutes) Total Sedation Time (minutes): 30 Procedure 2: Sedation/Anesthesia: 10732 Mod Sedation by the same physician; Ea [id number] Minutes (Additional 15 minutes) Total Sedation Time (minutes): 30
--- NOTE | 2022-12-05 15:18 | Cardiac Catheterization ---
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 Cardiac Status Clinical evaluation leading to the procedure CAD Presenation: Non STEMI Anginal Classification: CCS IV Heart Failure: No Cardiogenic Shock within 24 Hours: No Cardiac Arrest within 24 Hours: No Imaging Studies Past 6 Months: Yes Coronary Anatomy Circumflex (% Stenosis): Distal (95% complex ulcerated extending into proximal PLV.) Diagnostic Physicians Name: Santosh Kennedy MD, PhD Closure Device Percutaneous Entry Location: Femoral Closure Device: Angio-Seal Recommendations: Medical Therapy and/or Counseling and PCI without planned CABG PCI Indication: PCI for high risk Non-KALEN and Staged PCI Lesion Segment Name: Distal circumflex bifurcation into large posterior lateral branch Culprit Artery: Yes Stenosis Prior to Rx (%): 95% Chronic Total Occlusion: No Pre-Procedure LORA Flow: 3 Previously Treated Lesion: No Lesion Complexity: High/C Lesion Length (mm): 24 Thrombus Present: No Bifurcation Lesion: Yes Guidewire Across Lesion: Yes Intraprocedure Events Significant Disection: No Perforation: No Cardiac Cath Procedure Full Procedure Date December 05, 2022 Pre-Procedure Diagnosis Pre-Procedure Diagnosis: Non STEMI AUC Score AUC Score: 07 Post-Procedure Diagnosis Post-Procedure Diagnosis: Severe CAD Procedure(s) Performed Procedure(s) Performed: Drug Eluting Stent and Ultrasound Guided Vascular Access Mold Construction Supervisor Santosh Kennedy MD, PhD Estimated Blood Loss Estimated Blood Loss: None (Less than 10 mL) Medication(s) Medication(s): Diphenhydramine, Fentanyl, Heparin, Lidocaine 1%, Nicardipine, Nitroglycerin and Versed Summary of Findings Brief description: Patient was brought to the cardiac catheterization suite where he was shaved and prepped in a sterile fashion. Sedated using IV Versed, fentanyl, and Benadryl. Soft tissues of the right groin were anesthetized using 10 mL of 1% Xylocaine. Using ultrasound for guidance (image saved), the right femoral artery was accessed and a 6 Danish femoral artery sheath was placed. All catheters were advanced and exchanged over a 0.035 J-tip wire. Roadmap coronary angiography was performed with a 6 Danish EBU 3.5 guide catheter. Patient was provided IV heparin and ACT was checked intermittently to ensure therapeutic ACT. Additional heparin provided as needed. Good Photo versa guidewire was advanced through the guide catheter and beyond the lesion in the distal circumflex terminating in the most distal AV groove vessel. Then, a second BMW versa guidewire was advanced and positioned across the l esion and into the large posterolateral branch. Predilatation of the complex lesion was performed using a 2.5 x 15 mm trek PTCA balloon inflated multiple times to 14 nhi. The balloon was removed. A 3.0 x 28 mm Xience [place] drug-eluting stent was then advanced and positioned across the complex lesion expanding into the proximal portion of the large posterior lateral branch. The initial BMW reversal guidewire in the most distal AV groove vessel was then retracted and removed. The 3.0 x 28 mm Xience stent was then deployed at 14 nhi. The balloon was then removed. The proximal and mid stent were then postdilated to 12 nhi mid and 14 nhi proximally to the proximal edge of the the stent. Occupational Health Manager angiography was performed. Stent delivery system and guidewire were removed. Final angiographic evaluation was performed in orthogonal views. Guide catheter was removed over the J-wire. Limited right femoral artery angiography was performed to evaluate for closure. Findings were favorable, therefore, the femoral artery sheath was removed and hemostasis was obtained using an Angio-Seal closure device. This was deployed in the recommended fashion. We obtained immediate hemostasis and the patient remained hemodynamically stable. He was returned to the recovery area. This ended the case. Coronary angiography and PCI findings: Previously placed LAD stent is widely patent There is 0% residual stenosis in the distal circumflex into the proximal posterolateral branch after implantation of a large caliber drug-eluting stent. LORA-3 flow post PCI No evidence of dissection or perforation post PCI Recommendations: Continue dual antiplatelet therapy to complete at least 1 year. Guideline directed medical therapy for secondary prevention of coronary disease including low-dose aspirin, high intensity statin therapy, beta-tereza, plus or minus KWADWO inhibitor/ARB. Treatment of comorbid disease to clinical targets. Hemodynamics Rest Ao:: 123/75 mmHg, mean 98 mmHg Final Ao: 131/82 mmHg, mean 103 mm [place] LV: Not performed Recommendations Recommendations: Medical Therapy and/or Counseling and PCI without planned CABG Radiation Exposure (mGy) 971 mGy, fluoroscopy time 8.6 minutes Contrast (mls) 100 mL Fluids (cc crystalloids) Fluids (cc crystalloids): 100 mL normal saline Anesthesia 3 mg IV Versed, 75 mcg IV fentanyl, 25 mg IV Benadryl Procedural Complication(s) None Disposition Recovery Room\PACU I attest to the content of the Intraoperative Record and any orders documented therein. Any exceptions are noted below. [facility] Card Cath Procedure Codes Therapeutic Services & Ancillary Procedure 1: Cardiovascular Tx and Anc Procedures: 16226 Ultrasonic Guidance Vascular Access Moderate Sedation Procedure 1: Sedation/Anesthesia: 38626 Mod Sedation by the same physician;Init15 Min Child Age 5 & Up (Initial 15 minutes (total 30 min)) Procedure 2: Sedation/Anesthesia: 55415 Mod Sedation by the same physician; Ea [id number] Minutes (Additional 15 minutes (total 30 minutes)) Stenting Procedure 1: Cardiovascular Stent Procedures: 52884 Perc transcatheter placement of intracoronary stent(s), with ang (Circumflex) PG Care Time/CCT Total # of Minutes Spent Total Time Spent with Patient: Total time spent is greater than 50% in coordination of care (as documented) at patient's floor/unit and/or counseling patient:
--- NOTE | 2022-12-05 15:25 | Cardiology Progress Note ---
Date of Service December 05, 2022 Assessment & Plan (1) Non-ST elevation KS (NSTEMI): Plan: Patient completed staged PCI today. He has residual chronic total occlusion of the small RCA. He will remain on dual antiplatelet therapy with aspirin and Brilinta for 1 to 2 years. Guideline directed medical therapy for secondary prevention of coronary disease will include low-dose aspirin, high intensity statin therapy, beta-tereza, and KWADWO inhibitor/ARB as tolerated. Strongly encourage cardiac rehab and referral will be made as an outpatient. Patient will be appropriate for discharge from a cardiovascular standpoint once he is completed bedrest. Access site care will be provided and instructions regarding activity over the next week. (2) Stage 2 chronic kidney disease: Plan: Patient did have drop in his GFR with his initial catheterization. I do recommend that he undergo repeat BMP after his second catheterization in 48 to 72 hours. He should continue IV fluid resuscitation while in the hospital and I encourage liberal oral water intake. (3) Hypertension: Plan: Blood pressure is improved. Continue current regimen and we will titrate further as an outpatient as needed. (4) Dyslipidemia: Plan: Patient is high risk (severe coronary disease,? Diabetes). High intensity statin therapy with a atorvastatin 80 mg daily and target LDL reduction of greater than or equal to 50% of untreated baseline LDL. We will check effect of our therapy in 3 months. Plan Once bedrest completed patient is appropriate for discharge. Follow-up in my office next week would be preferable. We will make referral to cardiac rehab at that time. Admission and Anticipated Discharge Date Admission Date: December 02, 2022 Subjective Patient without symptoms overnight. Very anxious today prior to procedure. He underwent successful PCI with implantation of a long drug-eluting stent to the distal circumflex extending into the large posterior lateral branch. No complications. Femoral access was utilized and an Angio-Seal closure device was used. He reports no chest pain or shortness of breath. No pain at the access site. Review of Systems Review of Systems: Negative except as per HPI Physical Exam Constitutional: WD/WN, vitals as above Neck: No JVD Respiratory: normal respiratory effort, lungs clear to auscultation Cardiovascular: RRR, no murmur, no edema Musculoskeletal: no cyanosis or clubbing, extremities motor strength 5/5 (Radial access site from prior is clean dry and intact with good distal perf) Neurologic: Cognition intact. Speech is fluent. No focal deficits. Psychiatric: A+Ox3, euthymic affect Results & Data ([facility]) Vital Signs (Past 12 Hours) Vital Signs Temp Pulse Pulse Resp BP Pulse Ox O2 Del Method 12/05/22 13:54 36.4 C L 71 16 140/91 94 Room Air 12/05/22 13:30 36.8 C 67 18 141/88 H 97 Room Air 12/05/22 12:54 36.8 C 68 18 142/91 H 96 Room Air 12/05/22 12:24 36.6 C 62 18 130/87 96 Room Air 12/05/22 12:14 36.9 C 68 17 134/88 96 Room Air 12/05/22 11:54 36.8 C 67 18 149/94 H 93 Room Air 12/05/22 11:39 37.0 C 67 18 143/90 H 94 Room Air 12/05/22 11:30 72 16 127/84 96 Room Air 12/05/22 11:15 67 16 135/89 96 Room Air 12/05/22 10:43 74 12/05/22 09:23 66 18 144/95 H 98 Room Air 12/05/22 07:28 37.1 C 69 18 146/83 H 97 Room Air 12/05/22 03:22 36.5 C 62 18 124/82 99 Room Air PG Care Time/CCT Total # of Minutes Spent Total Time Spent with Patient: Total time spent is greater than 50% in coordination of care (as documented) at patient's floor/unit and/or counseling patient: Coding [place] [address] SUB INP/OBS CARE 10/23MIN Patient Type Established Diagnoses Non-ST elevation KS (NSTEMI) I21.4 Stage 2 chronic kidney disease N18.2 Hypertension I10 Dyslipidemia E78.5
--- NOTE | 2022-12-17 22:00 | Discharge Summary ---
Date of Service December 05, 2022 Admission HPI Per Admitting Provider Kin is a 42 year old male with a PMH significant for , HTN, dyslipidemia, hypothyroidism, stage 2 CKD, GERD, and ALANA on CPAP who presented to the [facility] ED on 12/02/22 with a chief complaint of chest pain. In the ED the patient was found to be afebrile, hemodynamically stable, and stable on RA. Labs were remarkable for a CBC WNL, stable Cr at 1.12 with stable electrolytes, LFT's WNL, initial high sensitivity trop of 420. Chest Xray was read as "No acute chest disease.". ECG was noted to show NSR without acute ST segment or T-wave inversions. Prior to admission the patient was given 324 mg PO Aspirin. At the time of the exam the patient was resting in bed in no acute distress. He states that he began developing intermittent, left-sided chest pain approximately one week ago. He states that the pain radiates to his neck and down both arms when it is at it's worst. He does not think that the pain is particularly associated with exertion as he has had it both with exertion and at rest. It will last for 1-2 hours, however, today it lasted for approximately 4 hours which is why he came to the ED. At the time of the exam the patient is currently chest pain free. When asked, he states that he took a dose of a muscle relaxer at home earlier today without relief of his symptoms. He currently is only taking Wellbutrin and Omeprazole at home. He is not a smoker and drinks alcohol socially. He states that he received he CPAP machine approximately 2 years ago but has not had a chance to set it up. He denies a previous history of serious bleeding issues such as intracranial hemorrhage, GI bleed, or recent ischemic stroke. He wishes to be a full code and would want his to make medical decisions for him if he could not make them himself. NSTEMI Principal Diagnosis NSTEMI Discharge Exam Patient resting comfortably. Cath site is clean dry intact good distal pulses and capillary refill Her exam is regular Lungs are clear Discharge Data Allergies Allergy/AdvReac Type Severity Reaction Status Date / Time No Known Allergies Allergy Verified 12/11/22 15:21 Consultations 12/02/22 19:00 ED Decision to Admit Stat 12/02/22 20:09 Consult Cardiology Routine Procedures Performed Operation Date: 12/05/22 11:00 Actual Procedures p Drug Eluting Stent SGl Vessel - Santosh Kennedy MD, PhD s Ultrasound Vascular Access - Santosh Kennedy MD, PhD Ordered Studies 12/03/22 10:18 CL Cath Imgs for PACS use only Stat 12/05/22 06:35 CL Cath Imgs for PACS use only Routine Hospital Course (1) Chest pain: acute unstable serious risk patient seen in presence of his at the bedside and educated Patient having NSTEMI underwent cardiac catheterization with drug-eluting stent to the anterior descending artery with plan for staged PCI of ostial circumflex lesion on 12/04. Patient placed on dual antiplatelet agents metoprolol high-dose of atorvastatin Appreciate input from Cardiology: (bold) Patient completed staged PCI today. He has residual chronic total occlusion of the small RCA. He will remain on dual antiplatelet therapy with aspirin and Brilinta for 1 to 2 years. Guideline directed medical therapy for secondary prevention of coronary disease will include low-dose aspirin, high intensity statin therapy, beta-tereza, and KWADWO inhibitor/ARB as tolerated. Strongly encourage cardiac rehab and referral will be made as an outpatient. Patient will be appropriate for discharge from a cardiovascular standpoint once he is completed bedrest. Access site care will be provided and instructions regarding activity over the next week. Patient had right leg redness of his thigh and leg. Patient monitored for a few hours after procedure. Recommended patient to stay, however, patient reports he has no pain and will return if his symptoms persist. Left tiger massage to Dr. Kennedy informing him of these symptoms. (2) Hypothyroidism: Chronic control is unknown impart some risk-States that his PCP has been monitoring tsh up but t4 normal continue outpatient monitor (3) GERD (gastroesophageal reflux disease): -Chronic and controlled continue omeprazole (4) Severe obstructive sleep apnea: -Chronic uncontrolled moderate risk the patient patient was previously diagnosed, never setup his CPAP machine -Patient will need to start using his CPAP machine HS as his untreated ALANA puts him at high risk for further complications -Will hold HS CPAP tonight to avoid possible symptom confusion with his current NSTEMI, can start tomorrow if he is stable from a cardiac standpoint Total Time Total Time Spent Total Time Spent (In Minutes): 32 Discharge Plan Discharge Items Patient Disposition: Home - Self-Care Reason For Visit: CHEST PAIN Discharge Diagnosis: NSTEMI severe CAD s/p PCI Condition on Discharge: Good Activity: Per Instructions section Non-emergency contact: Critical Care Unit Manager Call non-emergency contact if: you have any medication questions, your symptoms worsen, your pain is not controlled, you have a fever, your wound has increased redness and your wound has increased drainage Follow-up/Referrals: Wendy Albarran MD [Primary Care Provider] - 12/11/22 11:30 am Diet: Carb Consistent or DM2 and Heart Healthy Addtl Attending Provider Instructions: ACTIVITY RECOMMENDATIONS: It is common to feel weak and fatigue for a few days. * Do not drive or operate any motorized equipment for the next three days. * Limit stair usage (2 or 3 trips a day only) for the next three days. * Do not lift anything heavier than 10 pounds for the next three days. * Do not engage in vigorous exercise or any sports for the next five days. * You may shower the day after your procedure, but do not immerse the area for three days. Cleanse the site gently with soap and water. SPECIAL CARE INSTRUCTIONS: * You may replace the pressure dressing or band-aid the morning after the procedure. * After your procedure, it is normal to have a small bruise or small lump at the site. Examine your site daily for any change in the bruise or lump, redness, swelling, drainage or numbness. Notify your doctor if any change. BLEEDING: * If there is a small amount of bleeding at the site, lie down and apply firm pressure with a clean cloth for ten minutes. When the bleeding stops, lie quietly keeping the procedure limb straight for six hours. Notify your doctor as soon as possible. * If the bleeding does not stop after ten minutes or if there is a large amount of bleeding or spurting, call 911 immediately. Continue to lie down and hold firm pressure until help arrives. SKIN IRRITATION: * You may experience some redness and/or swelling in the area where radiation was administered. If any skin irritation occurs, please contact your family physician. FOLLOW UP VISIT: Keep any scheduled doctor appointments. Pending Studies at Discharge: No Stand-Alone Forms: My [facility], Smoking Cessation Medications and DC Order Prescriptions: New nitroglycerin [Nitrostat] 0.4 mg Tablet, Sublingual 0.4 mg sublingual Q5M PRN (Reason: chest pain) Qty: 25 3RF metoprolol tartrate 25 mg Tablet 25 mg PO BID Qty: 60 11RF atorvastatin 80 mg tablet 80 mg PO HS Qty: 30 0RF Continued omeprazole 20 mg capsule,delayed release(DR/EC) 20 mg PO QAM Qty: 90 1RF bupropion HCl [Wellbutrin XL] 300 mg tablet extended release 24 hr 300 mg PO QAM Qty: 30 5RF No Action Eliquis 5 mg tablet See Rx Instructions .ROUTE .COMPLEX Qty: 74 0RF Rx Instructions: Take 10 mg (2 tablets) twice daily for day 1 through 7; beginning on day #8 8 5 mg (1 tablet) twice daily ondansetron 4 mg tablet,disintegrating 4 mg PO Q6H PRN (Reason: nausea and vomiting) Qty: 30 0RF clopidogrel 75 mg Tablet 75 mg PO QAM 30 Days Qty: 30 0RF Discharge Orders: Discharge Order (Routine); Ordered 12/05/22 Ordered By: Santosh Kennedy Admission Data Admit Date/Time: 12/02/22 19:38 Attending Provider: Harpreet Garcia Admit Provider: Cheng Bowles Primary Care Provider: Wendy Albarran Other Providers: Cheng Bowles ; Boubacar Campo Other Interventions: Discharge Summary Assessment (RN) Last Done: 12/05/22 18:15 Coding Level of Care Code 53833 INP/OBS DISCH >30 MIN Diagnoses Chest pain R07.9 Hypothyroidism E03.9 GERD (gastroesophageal reflux disease) K21.9 Severe obstructive sleep apnea G47.33
== END 2022-12-05 19:11 | disposition home or self-care (01) | DRG 247 ==
LOC: ED 16:16 → 4W 19:38 → SUATTDRO 19:38 → 4W 21:15
DX: Z87.891 Personal history of nicotine dependence; E03.9 Hypothyroidism, unspecified; G47.33 Obstructive sleep apnea (adult) (pediatric); N18.2 Chronic kidney disease, stage 2 (mild); I12.9 Hypertensive chronic kidney disease with stage 1 through stage 4 chronic kidney disease, or unspecified chronic kidney disease; I21.4 Non-ST elevation (NSTEMI) myocardial infarction; I25.10 Atherosclerotic heart disease of native coronary artery without angina pectoris; E78.5 Hyperlipidemia, unspecified; K21.9 Gastro-esophageal reflux disease without esophagitis

== ENCOUNTER 2022-12-11 10:58 | Observation (INO) ==
--- NOTE | 2022-12-11 11:11 | Emergency Department Note ---
Impression & Plan DVT (deep venous thrombosis), S/P cardiac cath, Pseudoaneurysm, Contusion of right thigh ED Provider Note NAME: WILLA PHILLIPS AGE: 42 SEX: M : 1980 ARRIVES VIA: Walk-In INFORMANT: [Patient][family] ED PROVIDER(S): [Ranulfo Gauthier MD] CHIEF COMPLAINT: DVT HISTORY OF PRESENT ILLNESS: The patient is a 42-year-old male with a history of coronary disease who had a non-STEMI about a week ago. A circumflex stent was placed. He was in the ED yesterday and evaluated for right leg swelling and pain. He was found to have a small pseudoaneurysm at his catheterization site as well as a fairly extensive right leg DVT. Cardiology was consulted and recommended Eliquis. The patient was to stop his aspirin but continue his Brilinta. He was felt stable for discharge. He was seen today by his family doctor's office, he was then seen by cardiology. At the cardiology office, the decision was made to send him back to the hospital for admission and DVT treatment. The patient currently complains of some achiness in the right leg especially with walking. There is a lot of bruising at the site where the cardiac catheterization was performed. He is not short of breath. No chest pain. No fever. He does believe his right lower extremity is a bit more swollen at the ankle than the left. Of note, he did not take his Eliquis this morning. PMHx/PSHx: See Below SOCIAL HISTORY: See Below. PHYSICAL EXAM: GENERAL: Patient is in no acute distress. HEENT: No acute trauma, normocephalic atraumatic, mucous membranes moist, no nasal congestion. NECK: No stridor, no adenopathy, no meningismus, trachea is midline. LUNGS: Clear to auscultation bilaterally, no wheeze, no rhonchi, breath sounds equal. HEART: Without murmurs gallops or rubs, regular rate and rhythm. ABDOMEN: Soft, nontender, bowel sounds positive, no peritonitis. EXTREMITIES: No cyanosis. There is some edema to the right lower extremity when compared to the left. There is significant bruising and contusion which is ol cash in appearance to the area of the right proximal thigh, this extends into the scrotum. No warmth or erythema to suggest cellulitis. This area is tender with palpation. NEUROLOGIC: Oriented x 3, no acute motor or sensory deficits, no focal weakness. SKIN: No rash, no jaundice, no diaphoresis. DIFFERENTIAL DIAGNOSIS: DVT, pseudoaneurysm, hematoma, cellulitis, neurovascular compromise, among others. EMERGENCY DEPARTMENT COURSE/PROCEDURES: Prior/Outside records reviewed: Cardiology and family practice notes, recent ED visits. MEDICAL DECISION MAKING: There is a mild leukocytosis which could be consistent with infection or just the stress of his recent events. There was a normal hemoglobin and platelet count. No concerning coagulopathy. No renal failure or significant electrolyte abnormality. No concerning liver enzyme elevation. COVID test returned negative. Ultrasound from yesterday did show an extensive right leg DVT and a pseudoaneurysm. On exam, the patient was resting comfortably in no distress. The patient was given an IV bolus of heparin and placed on heparin drip. He will be hospitalized for this extensive DVT. Cardiology will be consulted for the pseudoaneurysm. I did speak with the patient and case management, the on- call hospitalist was consulted. DISPOSITION: The patient's findings and presentation warrant a hospital stay. Past Med/Surg History Medical History (Updated 12/11/22 @ 13:08 by Ranulfo Gauthier MD) Abdominal pain Acute kidney injury (nontraumatic) Dyslipidemia GERD (gastroesophageal reflux disease) Hepatitis Hypertension Hypothyroidism Stage 2 chronic kidney disease Surgical History (Updated 12/11/22 @ 13:08 by Ranulfo Gauthier MD) Hx laparoscopic cholecystectomy S/P excision of ganglion cyst Family History Other Hypertension Denies family history of Colon cancer Ovarian cancer Prostate cancer Kidney disease Myocardial infarction Breast cancer Congenital kidney disease Social History Smoking Status: Never smoker Tobacco Type: Cigarettes Age Quit Using Tobacco: 19; packs per day: 0.5; Hx Alcohol Use: Yes Alcohol type: hard liquor Alcohol Intake Frequency: 4 or More x per/Week Hx Substance Use: No Preferred Language: Nepali Communication Ability: Effective Visual Impairment: No Limitations Hearing Ability: Normal Husbandry Technician Required: No Beliefs That Will Affect Care: None marital status: Current Living Situation: Spouse Current Living Situation Comment: spouse, children current occupational status: employed 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 Feels Safe at Home: Yes Childhood Exposure to Second-Hand Smoke: Yes caffeine: Yes Dental Care, Regularly: No Physical Activity Frequency: Daily Seatbelt Use: sometimes Sunscreen Use: Yes Assistive Devices: None Allergies Allergies Allergy/AdvReac Type Severity Reaction Status Date / Time No Known Allergies Allergy Verified 12/11/22 09:38 Home Meds Previous Rx's Medication Instructions Recorded omeprazole 20 mg capsule,delayed 20 mg PO QAM #90 caps 05/26/20 release bupropion HCl 300 mg 24 hr tablet, 300 mg PO QAM #30 tabs 11/05/22 extended release (Wellbutrin XL) atorvastatin 80 mg tablet 80 mg PO HS #30 tabs 12/05/22 metoprolol tartrate 25 mg tablet 25 mg PO BID #60 tabs 12/05/22 nitroglycerin 0.4 mg sublingual 0.4 mg sublingual Q5M PRN chest 12/05/22 tablet (Nitrostat) pain #25 tabs ticagrelor 90 mg tablet (Brilinta) 90 mg PO BID #60 tabs 12/05/22 ondansetron 4 mg disintegrating 4 mg PO Q6H PRN nausea and 12/07/22 tablet vomiting #30 tabs apixaban 5 mg tablet (Eliquis) See Rx Instructions .Route 12/10/22 .COMPLEX #74 tabs Results & Data (ED) Vital Signs Vital Signs - 24 hr 12/11/22 10:59 12/11/22 11:25 12/11/22 12:17 Pulse Rate 65 66 Pulse Rate [Apical] 63 Pulse Rate from SpO2 Sensor Respiratory Rate 18 18 Respiratory Depth Normal Blood Pressure 147/89 H Blood Pressure [Left Arm] 146/90 H Blood Pressure Mean 108 Blood Pressure Mean [Left Arm] 108 Blood Pressure Position Sitting Pulse Oximetry 98 98 Oxygen Delivery Method Room Air Room Air Sepsis Recent Fever Within 48 Hours No Sepsis New/Unexplained Change in Mental Status No Sepsis Action Taken by Nursing No Action Required 12/11/22 11:19 12/11/22 11:50 12/11/22 12:20 Pulse Rate 64 66 65 Pulse Rate [Apical] Pulse Rate from SpO2 Sensor 65 Respiratory Rate 14 21 12 Respiratory Depth Blood Pressure Blood Pressure [Left Arm] Blood Pressure Mean Blood Pressure Mean [Left Arm] Blood Pressure Position Pulse Oximetry 97 Oxygen Delivery Method Sepsis Recent Fever Within 48 Hours Sepsis New/Unexplained Change in Mental Status Sepsis Action Taken by Care Home Medications Current Medication List: was personally reviewed by me Laboratory Data Attestation: I reviewed the patient's lab results. 12/11/22 11:09 12/11/22 11:09 Lab Results 12/11/22 12/11/22 12/11/22 Range/Units 11:09 11:09 11:09 WBC 11.15 H (4.8-10.8) K/ul RBC 4.92 (4.70-6.10) M/uL Hgb 15.0 (14.0-18.0) g/dl Hct 44.2 (42.0-52.0) % MCV 89.8 (80.0-100.0) fL MCH 30.5 (25.0-34.0) pg MCHC 33.9 (32.0-36.0) g/dL RDW Std Deviation 44.5 (36.4-46.3) fL RDW Coeff of Kimberly 13.6 (11.5-14.5) % Plt Count 360 (130-400) K/uL MPV 9.7 (9.4-12.4) fL PT 11.3 (9.0-12.0) Seconds INR 1.1 (0.9-1.1) APTT 34.0 H (21.0-31.0) Seconds PTT Ratio 1.2 Sodium 139 (136-145) mmol/L Potassium 3.9 (3.5-5.1) mmol/L Chloride 101 (98-107) mmol/L Carbon Dioxide 30 (21-32) mmol/L Anion Gap 8 (3-11) BUN 12 (6-23) mg/dl Creatinine 0.98 (0.6-1.4) mg/dl Est Cr Clr Drug Dosing 122.0 ml/min Est GFR ( Amer) 109.0 ml/min Est GFR (Non-Af Amer) 94.1 ml/min BUN/Creatinine Ratio 12.2 (10-20) Glucose 105 H (70-99(Fasting)) mg/dl Calcium 9.3 (8.5-10.1) mg/dl Total Bilirubin 1.5 H (0.2-1.0) mg/dl AST 22 (13-39) U/L ALT 23 (7-52) U/L Alkaline Phosphatase 89 (34-104) U/L Total Protein 7.5 (6.0-8.3) gm/dl Albumin 4.1 (3.4-5.0) gm/dl Globulin 3.4 (2.5-4.0) gm/dl Albumin/Globulin Ratio 1.2 (0.9-2) SARS-CoV-2, RNA, NAAT (NEGATIVE) 12/11/22 Range/Units Unknown WBC (4.8-10.8) K/ul RBC (4.70-6.10) M/uL Hgb (14.0-18.0) g/dl Hct (42.0-52.0) % MCV (80.0-100.0) fL MCH (25.0-34.0) pg MCHC (32.0-36.0) g/dL RDW Std Deviation (36.4-46.3) fL RDW Coeff of Kimberly (11.5-14.5) % Plt Count (130-400) K/uL MPV (9.4-12.4) fL PT (9.0-12.0) Seconds INR (0.9-1.1) APTT (21.0-31.0) Seconds PTT Ratio Sodium (136-145) mmol/L Potassium (3.5-5.1) mmol/L Chloride (98-107) mmol/L Carbon Dioxide (21-32) mmol/L Anion Gap (3-11) BUN (6-23) mg/dl Creatinine (0.6-1.4) mg/dl Est Cr Clr Drug Dosing ml/min Est GFR ( Amer) ml/min Est GFR (Non-Af Amer) ml/min BUN/Creatinine Ratio (10-20) Glucose (70-99(Fasting)) mg/dl Calcium (8.5-10.1) mg/dl Total Bilirubin (0.2-1.0) mg/dl AST (13-39) U/L ALT (7-52) U/L Alkaline Phosphatase (34-104) U/L Total Protein (6.0-8.3) gm/dl Albumin (3.4-5.0) gm/dl Globulin (2.5-4.0) gm/dl Albumin/Globulin Ratio (0.9-2) SARS-CoV-2, RNA, NAAT NEGATIVE (NEGATIVE) Administered Medications Heparin Sodium/Dextrose (Heparin Sodium/Dextrose) 25,000 units in 500 mls @ 32 mls/hr IV .[id number] [facility]; Protocol Stop: 01/10/23 11:44 Last Admin: 12/11/22 12:01 Dose: 1,600 units/hr, 32 mls/hr Documented By: NRB Co-signed By: BK Discontinued Medications Heparin Sodium (Porcine) (Heparin Sod (Porcine) 1000 Unit/Ml) 5,000 units IV NOW ONE Stop: 12/11/22 12:01 Last Admin: 12/11/22 12:08 Dose: Not Given Documented By: NRB Imaging Data Radiologist's Impression: ULTRASOUND RIGHT LOWER EXTREMITY VENOUS CLINICAL HISTORY: Right leg pain and swelling.. COMPARISON STUDY: No priors. TECHNIQUE: Real-time, grayscale, and color Doppler sonography of the deep veins of the right lower extremity was performed from the inguinal crease to the calf. Compression and augmentation were utilized. FINDINGS: There is occlusive deep venous thrombosis seen extending from the common femoral vein and throughout the superficial femoral vein. The popliteal vein is patent and normally compressible. There is occlusive superficial venous thrombus within the greater saphenous and profunda femoris veins at the junction with the common femoral vein. The visualized calf veins are patent. IMPRESSION: 1. There is extensive occlusive deep venous thrombosis seen extending from the common femoral vein throughout the superficial femoral vein. 2. Occlusive superficial venous thrombus is seen within the greater saphenous and profunda femoris veins at the junction with the common femoral vein. ULTRASOUND RIGHT GROIN ARTERIAL CLINICAL HISTORY: Assess for pseudoaneurysm status post cardiac catheterization. COMPARISON STUDY: No priors. FINDINGS: Real-time grayscale and color Doppler sonography of the right groin is performed to assess for pseudoaneurysm. The right common femoral artery is patent with normal triphasic waveforms and velocities measuring up to 139 cm/s. There is a pseudoaneurysm identified in the right groin, which is difficult to visualize due to surrounding edema. This contains to-and-fro internal flow and measures up to 2.4 cm in diameter. The neck of the pseudoaneurysm measures approximately 5 mm. IMPRESSION: Right groin pseudoaneurysm as detailed above. Discharge Plan Visit Data Chief Complaint: Swelling/Edema to Extremity Stated Complaint: BLOOD CLOT, REF BY DOC ED Provider: Ranulfo Gauthier Discharge Problem: DVT (deep venous thrombosis), S/P cardiac cath, Pseudoaneurysm, Contusion of right thigh Patient Disposition: Admitted As Inpatient Condition: Good Forms Stand Alone Forms: My [facility] [employer] Prescriptions Prescriptions: No Action omeprazole 20 mg capsule,delayed release(DR/EC) 20 mg PO QAM Qty: 90 1RF bupropion HCl [Wellbutrin XL] 300 mg tablet extended release 24 hr 300 mg PO QAM Qty: 30 5RF Eliquis 5 mg tablet See Rx Instructions .ROUTE .COMPLEX Qty: 74 0RF Rx Instructions: Take 10 mg (2 tablets) twice daily for day 1 through 7; beginning on day #8 8 5 mg (1 tablet) twice daily nitroglycerin [Nitrostat] 0.4 mg Tablet, Sublingual 0.4 mg sublingual Q5M PRN (Reason: chest pain) Qty: 25 3RF metoprolol tartrate 25 mg Tablet 25 mg PO BID Qty: 60 11RF Brilinta 90 mg tablet 90 mg PO BID Qty: 60 0RF atorvastatin 80 mg tablet 80 mg PO HS Qty: 30 0RF ondansetron 4 mg tablet,disintegrating 4 mg PO Q6H PRN (Reason: nausea and vomiting) Qty: 30 0RF Referrals Referrals: Wendy Albarran MD [Primary Care Provider] - DVT (deep venous thrombosis) Qualifiers: DVT location: lower extremity Affected thrombotic vein of extremity: unspecified vein of extremity Chronicity: acute Laterality: right Qualified Code(s): I82.401 - Acute embolism and thrombosis of unspecified deep veins of right lower extremity Contusion of right thigh Qualifiers: Encounter type: initial encounter Qualified Code(s): S70.11XA - Contusion of right thigh, initial encounter
[2022-12-11] MEDS ORDERED: Heparin IV Adult Wt-Based Standard WITH Bolus Protocol IV STA (11:19)
[2022-12-11] MEDS ORDERED: Patient's HEIGHT &/or WEIGHT Needed STA (11:21)
[2022-12-11] MEDS ORDERED: Heparin IV Adult Wt-Based Standard WITH Bolus Protocol IV SCH (11:30)
[2022-12-11] MEDS ORDERED: HEPARIN SOD (PORCINE) 1000 UNIT/ML IV ONE ×2 (11:35→12:00)
--- NOTE | 2022-12-11 11:47 | History & Physical Report ---
Date of Service December 11, 2022 Assessment & Plan (1) Pseudoaneurysm following procedure: Plan: Femoral pseudoaneurysm post catheterization Arterial duplex: Right common femoral artery patent, pseudoaneurysm of right groin poorly visualized due to edema with internal flow measuring up to 2.4 cm in diameter, neck of pseudoaneurysm measuring 0.5 cm Currently less than 3 cm No hemodynamic instability, no neurologic deficit, pulses intact, no expanding hematoma, no superimposed soft tissue cellulitis/purulence appreciable Patient with increased risk of conservative management failure due to anticoagulation use for concurrent DVT Discussed with ER & cardiology; hold ASA continue heparin/brilinta. Dr. Yung to see, anticipate ultrasound-guided thrombin injection (2) DVT (deep venous thrombosis): Plan: Extensive common femoral DVT - Provoked in the setting of recent cardiac cath x2 - Took 1x 10mg dose of eliquis last night 12/11 - Did not take eliquis this AM - Heparin gtt started (3) S/P cardiac catheterization: Plan: No chest pain or chest pressure since catheterization and stent placement Hold ASA, continue Brilinta/heparin and anticipate Brilinta + Eliquis on DC Continue metoprolol Has not yet started KWADWO/ARB (4) GERD (gastroesophageal reflux disease): Plan: Continue PPI (5) Generalized anxiety disorder: Plan: Continue bupropion (6) Hypothyroidism: Plan: - TSH elevated, with normal ft4 (7) Stage 2 chronic kidney disease: Plan: Noted on chart review Admitting creatinine 0.98, estimated creatinine clearance 122 BMP daily (8) Severe obstructive sleep apnea: Plan: CPAP nightly Plan DVT prophylaxis: Heparinized Diet: N.p.o. pending cardiology assessment for pseudoaneurysm intervention Disposition: Medical telemetry CODE STATUS: Full code History of Present Illness Primary Care Provider: Wendy Albarran MD Kin Cazares is a 42-year-old male with a past medical history of NSTEMI s/p cardiac catheterization 12/05/2022 and 12/03, 1x then 1x tend placed and LAD stent patient on re-eval he was placed on DAPT, atorvastatin, metoprolol and was pending H/ARB as tolerated. Patient was seen for follow-up in the ER yesterday with right lower extremity pain at the site of his cardiac catheterization and was found to have extensive DVT extending from the common femoral through the superficial femoral vein, occlusive superficial thrombus in greater saphenous/profunda femoris and CFV junction and a right groin arterial pseudoaneurysm. Kin is seen at the bedside. He reports he has had no chest pain since his catheterization. He has had leg swelling for approximately 1 week and more redness in his leg for 1 day. He had bruising which expanded over to the groin this has been improving. He has no numbness/tingling in his leg, but reports the light leg is more swollen than the left. He has had a feeling of difficulty catching his breath and breathing a little heavier in the last several days, but denies actual shortness of breath or difficulty breathing. Denies lightheadedn ess, dizziness, syncope, presyncope. He was seen in the ER for nausea/vomiting which improved with symptomatic care. No melena/bright red blood per rectum. He was started on Eliquis last night which she took, did not take this morning as he had not yet filled his prescription. Was referred to the hospital for evaluation and placed on heparin drip. Has taken metoprolol, has not yet started KWADWO/ARB. Medical History: Reviewed Medications: Reviewed Surgical History: Reviewed Family history: Reviewed Allergies: Reviewed Social History: Denies tobacco/recent alcohol use, denies recreational drug use, denies medical or recreational drug warning Code Status: Full Allergies Allergy/AdvReac Type Severity Reaction Status Date / Time No Known Allergies Allergy Verified 12/11/22 09:38 Home Medications Medication Instructions Recorded Confirmed Type omeprazole 20 mg capsule,delayed 20 mg PO QAM #90 caps 05/26/20 12/11/22 Rx release bupropion HCl 300 mg 24 hr tablet, 300 mg PO QAM #30 tabs 11/05/22 12/11/22 Rx extended release (Wellbutrin XL) atorvastatin 80 mg tablet 80 mg PO HS #30 tabs 12/05/22 12/11/22 Rx metoprolol tartrate 25 mg tablet 25 mg PO BID #60 tabs 12/05/22 12/11/22 Rx nitroglycerin 0.4 mg sublingual 0.4 mg sublingual Q5M PRN chest 12/05/22 12/11/22 Rx tablet (Nitrostat) pain #25 tabs ticagrelor 90 mg tablet (Brilinta) 90 mg PO BID #60 tabs 12/05/22 12/11/22 Rx ondansetron 4 mg disintegrating 4 mg PO Q6H PRN nausea and 12/07/22 12/11/22 Rx tablet vomiting #30 tabs apixaban 5 mg tablet (Eliquis) See Rx Instructions .Route 12/10/22 12/11/22 Rx .COMPLEX #74 tabs Past Med/Surg History Medical History Abdominal pain Acute kidney injury (nontraumatic) Dyslipidemia GERD (gastroesophageal reflux disease) Hepatitis Hypertension Hypothyroidism Stage 2 chronic kidney disease Surgical History Hx laparoscopic cholecystectomy S/P excision of ganglion cyst Family History Other Hypertension Denies family history of Colon cancer Ovarian cancer Prostate cancer Kidney disease Myocardial infarction Breast cancer Congenital kidney disease Social History Smoking Status: Never smoker Tobacco Type: Cigarettes Age Quit Using Tobacco: 19; packs per day: 0.5; Hx Alcohol Use: Yes Alcohol type: hard liquor Alcohol Intake Frequency: 4 or More x per/Week Hx Substance Use: No Preferred Language: Belarusian Communication Ability: Effective Visual Impairment: No Limitations Hearing Ability: Normal 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 Beliefs That Will Affect Care: None marital status: Current Living Situation: Spouse Current Living Situation Comment: spouse, children current occupational status: employed 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 NAD. Cooperative. HEENT: Atraumatic, normocephalic. Vision/hearing grossly intact. PERLAA. Pulm: CTAB A&P. -wheezes, -rales, -rhonchi. Symmetrical chest rise. No increased work of breathing. No respiratory distress. Cardiac: RRR, -mrg. Radial pulses intact and symmetrical. Abdominal: Nontender, nondistended, soft. BS present. Extremities: Right calf and thigh with increased circumference compared to the left. Right ankle edema is present. Bruising proximal thigh bruising extending to the scrotum. No warmth/erythema/purulence/discharge. PT pulses are intact bilaterally, cap refill intact in feet bilaterally. Sensation soft touch intact in feet bilaterally and hands bilaterally without deficit. Ankle dorsiflexion/plantarflexion, entrepreneurial finance professor strength, elbow flexion/extension 5/5 bilaterally. Results & Data Results & Data Vital Signs (Past 12 Hours) Vital Signs Pulse Pulse Resp BP BP Pulse Ox O2 Del Method 12/11/22 11:25 63 18 146/90 H 98 Room Air 12/11/22 10:59 65 18 147/89 H 98 Room Air PG Care Time/CCT Total # of Minutes Spent Total Time Spent with Patient: Total time spent is greater than 50% in coordination of care (as documented) at patient's floor/unit and/or counseling patient: Coding Level of Care Code 91155 INT INP/OBS CARE 3/75MIN Diagnoses Pseudoaneurysm following procedure T81.718A; I72.9 DVT (deep venous thrombosis) I82.401 Affected thrombotic vein of extremity: unspecified vein of extremity Chronicity: acute DVT location: lower extremity Laterality: right S/P cardiac catheterization Z98.890 GERD (gastroesophageal reflux disease) K21.9 Generalized anxiety disorder F41.1 Hypothyroidism E03.9 Stage 2 chronic kidney disease N18.2 Severe obstructive sleep apnea G47.33 (2) DVT (deep venous thrombosis) Affected thrombotic vein of extremity: unspecified vein of extremity Chronicity: acute DVT location: lower extremity Laterality: right Qualified Code(s): I82.401 - Acute embolism and thrombosis of unspecified deep veins of right lower extremity
[2022-12-11 11:53] LABS: Hematocrit (blood only) 44.2 % (42.0-52.0); Mean Corpuscular Hemoglobin 30.5 pg (25.0-34.0); Mean Corpuscular Hgb Conc 33.9 g/dL (32.0-36.0); Mean Corpuscular Volume 89.8 fL (80.0-100.0); Mean Platelet Volume 9.7 fL (9.4-12.4); Platelet Count 360 K/uL (130-400); RDW Coefficient of Variation 13.6 % (11.5-14.5); RDW Standard Deviation 44.5 fL (36.4-46.3); Red Blood Count 4.92 M/uL (4.70-6.10); White Blood Count 11.15 K/ul (4.8-10.8)
[2022-12-11] MEDS: HEPARIN SODIUM/DEXTROSE 25,000 UNITS/500 ML BAG IV SCH (12:01)
[2022-12-11 12:11] LABS: Albumin Globulin Ratio 1.2 (0.9-2); Albumin Level 4.1 gm/dl (3.4-5.0); BUN Creatinine Ratio 12.2 (10-20); Bilirubin,Total 1.5 mg/dl (0.2-1.0); Calcium 9.3 mg/dl (8.5-10.1); Est GFR (Non-African American) 94.1 ml/min; Globulin 3.4 gm/dl (2.5-4.0); Potassium 3.9 mmol/L (3.5-5.1); Total Protein 7.5 gm/dl (6.0-8.3)
[2022-12-11 12:25] LABS: INR 1.1 (0.9-1.1); Partial Thromboplastin Ratio 1.2; Prothrombin Time 11.3 Seconds (9.0-12.0)
[2022-12-11] MEDS ORDERED: NORMOSOL-R 1,000 ML IV SCH (16:13)
[2022-12-11] MEDS ORDERED: ACETAMINOPHEN 325 MG TAB PO PRN (16:13)
[2022-12-11] MEDS ORDERED: NITROGLYCERIN SL 0.4 MG/TAB TAB SL PRN (16:13)
[2022-12-11] MEDS ORDERED: ONDANSETRON INJ 2 MG/ML 2 ML VIAL IV PRN (16:13)
[2022-12-11 20:30] LABS: Partial Thromboplastin Ratio 2.7
[2022-12-11 20:42] LABS: Partial Thromboplastin Time 72.9 Seconds (21.0-31.0)
[2022-12-11] MEDS: ATORVASTATIN 40 MG TAB PO SCH (20:51)
[2022-12-11] MEDS: TICAGRELOR 90 MG TAB PO SCH (20:51)
[2022-12-11] MEDS: METOPROLOL TARTRATE 25 MG TAB PO SCH (20:51)
[2022-12-12] MEDS: HEPARIN SODIUM/DEXTROSE 25,000 UNITS/500 ML BAG IV SCH ×2 (04:19→15:08)
[2022-12-12 04:39] LABS: Basophils # (auto) 0.04 K/uL (0-0.2); Basophils % (auto) 0.4 %; Eosinophils # (auto) 0.11 K/uL (0-0.50); Eosinophils % (auto) 1.2 %; Hematocrit (blood only) 39.4 % (42.0-52.0); Hemoglobin 13.7 g/dl (14.0-18.0); Immature Granulocytes # (auto) 0.03 K/uL (0.01-0.20); Immature Granulocytes % (auto) 0.3 %; Lymphocytes # (auto) 1.48 K/uL (1.2-3.4); Lymphocytes % (auto) 16.2 %; Mean Corpuscular Hemoglobin 30.5 pg (25.0-34.0); Mean Corpuscular Hgb Conc 34.8 g/dL (32.0-36.0); Mean Corpuscular Volume 87.8 fL (80.0-100.0); Mean Platelet Volume 9.7 fL (9.4-12.4); Monocytes # (auto) 0.84 K/uL (0.11-0.59); Monocytes % (auto) 9.2 %; Neutrophils # (auto) 6.61 K/uL (1.40-6.50); Neutrophils % (auto) 72.7 %; Platelet Count 324 K/uL (130-400); RDW Coefficient of Variation 13.3 % (11.5-14.5); Red Blood Count 4.49 M/uL (4.70-6.10); White Blood Count 9.11 K/ul (4.8-10.8)
[2022-12-12 04:56] LABS: BUN Creatinine Ratio 14.3 (10-20); Calcium 8.8 mg/dl (8.5-10.1); Creatinine Clr Calc Pharmacy 130.5 ml/min; Est GFR (African American) 119.2 ml/min; Est GFR (Non-African American) 102.9 ml/min; Potassium 3.9 mmol/L (3.5-5.1)
[2022-12-12 05:40] LABS: INR 1.1 (0.9-1.1); Prothrombin Time 11.7 Seconds (9.0-12.0)
[2022-12-12 05:41] LABS: Partial Thromboplastin Time 81.4 Seconds (21.0-31.0)
[2022-12-12] MEDS ORDERED: THROMBIN 5000 UNITS KIT ONE (07:06)
[2022-12-12] MEDS: TICAGRELOR 90 MG TAB PO SCH ×2 (08:40→21:13)
[2022-12-12] MEDS: METOPROLOL TARTRATE 25 MG TAB PO SCH ×2 (08:40→21:13)
[2022-12-12] MEDS: PANTOprazole 40 MG TAB PO SCH (08:41)
[2022-12-12] MEDS: buPROPion XL 300 MG TABCR PO SCH (08:41)
[2022-12-12] MEDS ORDERED: LIDOCAINE 1% LOCAL 20 ML VIAL ONE ×2 (11:09→12:21)
--- NOTE | 2022-12-12 12:33 | Hospitalist Progress Note ---
Date of Service December 12, 2022 Assessment & Plan (1) Pseudoaneurysm following procedure: Plan: Patient has a history of coronary disease and had a non-STEMI about a week prior. A circumflex stent was placed. He came to the ED for evaluation of right leg swelling and pain. -He was found to have a small pseudoaneurysm at his catheterization site as well as a fairly extensive right leg DVT -Duplex showed pseudoaneurysm of the right groin -Since he is going to be on a blood thinner for his DVT, the decision was made to inject the pseudoaneurysm today -Continue Brillinta -Appreciate vascular (2) DVT (deep venous thrombosis): Plan: Found to have Extensive common femoral DVT - Likely Provoked in the setting of recent cardiac cath x2 - Continue home eliquis after OR today (3) S/P cardiac catheterization: Plan: No chest pain or chest pressure since catheterization and stent placement Hold ASA, continue Brilinta/heparin and anticipate Brilinta + Eliquis on DC Continue metoprolol Has not yet started KWADWO/ARB (4) GERD (gastroesophageal reflux disease): Plan: Continue PPI (5) Generalized anxiety disorder: Plan: Continue bupropion (6) Hypothyroidism: Plan: - TSH elevated, with normal ft4 (7) Stage 2 chronic kidney disease: Plan: Noted on chart review Admitting creatinine 0.98, estimated creatinine clearance 122 BMP daily (8) Severe obstructive sleep apnea: Plan: CPAP nightly Plan DVT prophylaxis: Heparinized Diet: Disposition: Medical telemetry CODE STATUS: Full code Admission and Anticipated Discharge Date Admission Date: December 11, 2022 Subjective patient seen and examined, by the bedside, no new complaints, awaiting OR Review of Systems Review of Systems: All systems reviewed are negative, apart from the ones contained in the history. Physical Exam Physical Exam: The patient is awake, alert and oriented 3, well developed and well nourished, normocephalic and atraumatic, lying in bed and in no acute distress. HEENT--PERRL, EOMI, mucous membranes and oropharynx mildly dry Neck--supple. No JVD. No bruits. Thyroid normal, trachea midline, no adenopathy. Heart--normal S1 and S2. No murmurs, rubs or gallops. Lungs--clear bilaterally, no respiratory distress, no accessory muscle use. Abdomen--normal bowel sounds and soft. Mild epigastric and left sided abdominal pain Extremities--no cyanosis or clubbing. No edema. Dermatologic--normal skin turgor, normal color, no abnormal lymph nodes, no rash. Neurologic--cranial nerves II through XII grossly intact. Rheumatologic--normal range of motion. Psychiatric--normal affect. Results & Data Results & Data Vital Signs (Past 12 Hours) Vital Signs Temp Pulse Resp BP Pulse Ox O2 Del Method 12/12/22 11:42 98.6 F 69 21 144/81 H 95 Room Air 12/12/22 07:28 98.6 F 65 21 146/78 H 97 Room Air 12/12/22 03:28 98.6 F 66 18 137/71 98 Room Air PG Care Time/CCT Total # of Minutes Spent Total Time Spent with Patient: Total time spent is greater than 50% in coordination of care (as documented) at patient's floor/unit and/or counseling patient: Coding Level of Care Code 27837 SUB INP/OBS CARE 2/35MIN Diagnoses Pseudoaneurysm following procedure T81.718A; I72.9 DVT (deep venous thrombosis) I82.401 Affected thrombotic vein of extremity: unspecified vein of extremity Chronicity: acute DVT location: lower extremity Laterality: right S/P cardiac catheterization Z98.890 GERD (gastroesophageal reflux disease) K21.9 Generalized anxiety disorder F41.1 Hypothyroidism E03.9 Stage 2 chronic kidney disease N18.2 Severe obstructive sleep apnea G47.33 Time Spent (min) 35 (2) DVT (deep venous thrombosis) Affected thrombotic vein of extremity: unspecified vein of extremity Chronicity: acute DVT location: lower extremity Laterality: right Qualified Code(s): I82.401 - Acute embolism and thrombosis of unspecified deep veins of right lower extremity
[2022-12-12] MEDS ORDERED: LORazepam 2 MG/1 ML VIAL ONE (12:35)
[2022-12-12] MEDS ORDERED: LORazepam 2 MG/1 ML VIAL IV PRN (12:36)
--- NOTE | 2022-12-12 13:11 | Vascular Medicine Consultation ---
Date of Consultation December 12, 2022 Assessment & Plan (1) Pseudoaneurysm: 2. Right common femoral/femoral vein DVT 3. Coronary artery diseasepost PCI with LINH to LAD, circumflex 4. Hypertension 5. Dyslipidemia Reevaluated right CLAIM SERVICE REPRESENTATIVE pseudoaneurysm under ultrasound today. Compared with pictures from 12/10 and 12/11 pseudoaneurysm persists but smaller. We discussed options including ultrasound-guided compression, continued watchful waiting or pseudoaneurysm thrombin injection With patient's need for long-term anticoagulation decided to proceed with thrombin injection. Patient prepped in sterile fashion and local anesthesia with lidocaine. Under ultrasound guidance approximately 500 units of thrombin was injected into patent portion of pseudoaneurysm directed away from pseudoaneurysm neck. With thrombin immediate thrombosis of residual pseudoaneurysm and no additional flow noted. Patient tolerated injection well. On bedside ultrasound right CLAIM SERVICE REPRESENTATIVE patent with triphasic Doppler waveforms. On exam 2+ popliteal, DP and PT pulses. Going forward Resume heparin infusion after 2 hours and continue overnight Repeat ultrasound this afternoon Likely discharge tomorrow on anticoagulation with Eliquis We will transition ticagrelor to clopidogrel. Give loading dose 300 mg tomorrow then 75 mg daily going forward. He will need close outpatient follow-up with repeat ultrasound next week. History of Present Illness Attending Physician: Herlinda Johnston MD History of Present Illness Mr. Cazares is a very pleasant 41-year-old man with recently diagnosed coronary artery disease in the setting of NSTEMI post PCI to LAD and later staged PCI to circumflex artery via right common femoral artery access on 12/05/2022. Patient returned to [facility] ED on 12/10/2022 endorsing 4 to 5 days of right lower extremity swelling, pain. Presented to ED after noticed more bruising along his inner thigh. In the ED was noted to have a large occlusive DVT extending from right common femoral vein down to distal femoral vein. Was also noted to have a small right CLAIM SERVICE REPRESENTATIVE pseudoaneurysm. Eventually admitted and placed on heparin infusion last night. Today reports that right lower extremity pain mildly improved. Was able to walk around his room without as much discomfort. Denies any chest pain, shortness of breath. Patient has no prior history of DVT. Allergies Allergy/AdvReac Type Severity Reaction Status Date / Time No Known Allergies Allergy Verified 12/11/22 15:21 Home Medications Medication Instructions Recorded Confirmed Type omeprazole 20 mg capsule,delayed 20 mg PO QAM #90 caps 05/26/20 12/11/22 Rx release bupropion HCl 300 mg 24 hr tablet, 300 mg PO QAM #30 tabs 11/05/22 12/11/22 Rx extended release (Wellbutrin XL) atorvastatin 80 mg tablet 80 mg PO HS #30 tabs 12/05/22 12/11/22 Rx metoprolol tartrate 25 mg tablet 25 mg PO BID #60 tabs 12/05/22 12/11/22 Rx nitroglycerin 0.4 mg sublingual 0.4 mg sublingual Q5M PRN chest 12/05/22 12/11/22 Rx tablet (Nitrostat) pain #25 tabs ticagrelor 90 mg tablet (Brilinta) 90 mg PO BID #60 tabs 12/05/22 12/11/22 Rx ondansetron 4 mg disintegrating 4 mg PO Q6H PRN nausea and 12/07/22 12/11/22 Rx tablet vomiting #30 tabs apixaban 5 mg tablet (Eliquis) See Rx Instructions .Route 12/10/22 12/11/22 Rx .COMPLEX #74 tabs Patient History Medical History (Updated 12/11/22 @ 13:08 by Ranulfo Gauthier MD) Abdominal pain Acute kidney injury (nontraumatic) Dyslipidemia GERD (gastroesophageal reflux disease) Hepatitis Hypertension Hypothyroidism Stage 2 chronic kidney disease Surgical History (Updated 12/11/22 @ 13:08 by Ranulfo Gauthier MD) Hx laparoscopic cholecystectomy S/P excision of ganglion cyst Family History Other Hypertension Denies family history of Colon cancer Ovarian cancer Prostate cancer Kidney disease Myocardial infarction Breast cancer Congenital kidney disease Social History Smoking Status: Never smoker Tobacco Type: Cigarettes Age Quit Using Tobacco: 19; packs per day: 0.5; Hx Alcohol Use: No Hx Substance Use: No Preferred Language: Sudanese Communication Ability: Effective Visual Impairment: No Limitations Hearing Ability: Normal Toy Maker Required: No Beliefs That Will Affect Care: None marital status: Current Living Situation: Spouse Current Living Situation Comment: spouse, children current occupational status: employed 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 Abdomen: Soft, nontender Neuro: Nonfocal Psych: Alert orient x3, normal affect and mood Extremities/vascular: Ecchymosis extending across pelvis into the groin/scrotum and around to right flank. Mild erythema along right inner thigh. Thigh swollen. 2+ right CLAIM SERVICE REPRESENTATIVE pulse, 2+ popliteal pulse, 2+ DP, PT pulse, sluggish capillary refill. Results & Data Vital Signs (Past 12 Hours) Vital Signs Temp Pulse Resp BP Pulse Ox O2 Del Method 12/12/22 11:42 98.6 F 69 21 144/81 H 95 Room Air 12/12/22 07:28 98.6 F 65 21 146/78 H 97 Room Air 12/12/22 03:28 98.6 F 66 18 137/71 98 Room Air PG Care Time/CCT Total # of Minutes Spent Total Time Spent with Patient: Total time spent is greater than 50% in coordination of care (as documented) at patient's floor/unit and/or counseling patient: Coding Level of Care Code 73225 OFFICE CONSULT LVL Diagnoses Pseudoaneurysm I72.9
[2022-12-12 15:18] LABS: Partial Thromboplastin Ratio 1.2; Partial Thromboplastin Time 34.1 Seconds (21.0-31.0)
--- NOTE | 2022-12-12 15:29 | Ultrasound Report ---
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 Nonspecific subc utaneous edema. Occlusive DVT redemonstrated within the common femoral, greater saphenous, profunda f emoris and superficial femoral veins. Interval thrombosis of the 1.8 x 1.5 x 1.7 cm right groin pseudoaneurysm with no residual flow, likel y originating from the common femoral artery. IMPRESSION: 1. Interval thrombosis of the previously noted right groin pseudoaneurysm with no residual flow. 2. Right lower extremity DVT redemonstrated. ACT 112: Negative or not required by law. The above report was generated using voice recognition software. It may contain grammatical, syntax o r spelling errors. Electronically signed by: Franklin Gilliland M.D. 12/12/2022 3:28 PM
[2022-12-12] MEDS: ATORVASTATIN 40 MG TAB PO SCH (21:14)
[2022-12-12 22:01] LABS: Partial Thromboplastin Ratio 1.7
[2022-12-12 22:03] LABS: Partial Thromboplastin Time 46.7 Seconds (21.0-31.0)
[2022-12-13 06:43] LABS: Hematocrit (blood only) 43.3 % (42.0-52.0); Hemoglobin 14.8 g/dl (14.0-18.0); Mean Corpuscular Hemoglobin 30.2 pg (25.0-34.0); Mean Corpuscular Hgb Conc 34.2 g/dL (32.0-36.0); Mean Corpuscular Volume 88.4 fL (80.0-100.0); Mean Platelet Volume 9.3 fL (9.4-12.4); Platelet Count 390 K/uL (130-400); RDW Standard Deviation 42.4 fL (36.4-46.3); White Blood Count 10.39 K/ul (4.8-10.8)
[2022-12-13 06:59] LABS: Calcium 9.2 mg/dl (8.5-10.1); Est GFR (African American) 106.4 ml/min; Est GFR (Non-African American) 91.8 ml/min; Potassium 3.9 mmol/L (3.5-5.1)
[2022-12-13 07:30] LABS: Partial Thromboplastin Ratio 2.1
[2022-12-13 07:32] LABS: Partial Thromboplastin Time 58.9 Seconds (21.0-31.0)
[2022-12-13] MEDS ORDERED: CLOPIDOGREL BISULFATE 300 MG TAB PO ONE (08:00)
[2022-12-13] MEDS: PANTOprazole 40 MG TAB PO SCH (08:56)
[2022-12-13] MEDS: buPROPion XL 300 MG TABCR PO SCH (08:56)
[2022-12-13] MEDS: METOPROLOL TARTRATE 25 MG TAB PO SCH (08:56)
[2022-12-13] MEDS: HEPARIN SODIUM/DEXTROSE 25,000 UNITS/500 ML BAG IV SCH (11:13)
--- NOTE | 2022-12-13 12:28 | Hospitalist Progress Note ---
Date of Service December 13, 2022 Assessment & Plan (1) Pseudoaneurysm following procedure: Plan: Patient has a history of coronary disease and had a non-STEMI about a week prior. A circumflex stent was placed. He came to the ED for evaluation of right leg swelling and pain. -He was found to have a small pseudoaneurysm at his catheterization site as well as a fairly extensive right leg DVT -Duplex showed pseudoaneurysm of the right groin -Since he is going to be on a blood thinner for his DVT, the decision was made to inject the pseudoaneurysm -He is now s/p succesful injection of the pseudoaneurysm as seen on repeat doppler -Continue Plavix and Eliquis upon discharge -Appreciate vascular (2) DVT (deep venous thrombosis): Plan: Found to have Extensive common femoral DVT - Likely Provoked in the setting of recent cardiac cath x2 - Continue home eliquis (3) S/P cardiac catheterization: Plan: No chest pain or chest pressure since catheterization and stent placement Hold ASA, continue Brilinta/heparin and anticipate Brilinta + Eliquis on DC Continue metoprolol Has not yet started KWADWO/ARB (4) GERD (gastroesophageal reflux disease): Plan: Continue PPI (5) Generalized anxiety disorder: Plan: Continue bupropion (6) Hypothyroidism: Plan: - TSH elevated, with normal ft4 (7) Stage 2 chronic kidney disease: Plan: Noted on chart review Admitting creatinine 0.98, estimated creatinine clearance 122 BMP daily (8) Severe obstructive sleep apnea: Plan: CPAP nightly Plan DVT prophylaxis: Heparinized Diet: Disposition: Medical telemetry CODE STATUS: Full code Admission and Anticipated Discharge Date Admission Date: December 11, 2022 Subjective patient seen and examined, by the bedside, no new complaints, stable post injection of his pseudoaneurysm Review of Systems Review of Systems: All systems reviewed are negative, apart from the ones contained in the history. Physical Exam Physical Exam: The patient is awake, alert and oriented 3, well developed and well nourished, normocephalic and atraumatic, lying in bed and in no acute distress. HEENT--PERRL, EOMI, mucous membranes and oropharynx mildly dry Neck--supple. No JVD. No bruits. Thyroid normal, trachea midline, no adeno nereyda. Heart--normal S1 and S2. No murmurs, rubs or gallops. Lungs--clear bilaterally, no respiratory distress, no accessory muscle use. Abdomen--normal bowel sounds and soft. Mild epigastric and left sided abdominal pain Extremities--no cyanosis or clubbing. No edema. Dermatologic--normal skin turgor, normal color, no abnormal lymph nodes, no rash. Neurologic--cranial nerves II through XII grossly intact. Rheumatologic--normal range of motion. Psychiatric--normal affect. Results & Data Results & Data Vital Signs (Past 12 Hours) Vital Signs Temp Pulse Pulse Resp BP Pulse Ox O2 Del Method 12/13/22 11:30 97.5 F L 67 18 130/85 96 Room Air 12/13/22 07:00 69 12/13/22 06:34 97.5 F L 64 18 146/90 H 96 Room Air 12/13/22 02:53 98.1 F 60 18 125/78 97 Room Air PG Care Time/CCT Total # of Minutes Spent Total Time Spent with Patient: Total time spent is greater than 50% in coordination of care (as documented) at patient's floor/unit and/or counseling patient: Coding Level of Care Code 65392 SUB INP/OBS CARE 2/35MIN Diagnoses Pseudoaneurysm following procedure T81.718A; I72.9 DVT (deep venous thrombosis) I82.401 Affected thrombotic vein of extremity: unspecified vein of extremity Chronicity: acute DVT location: lower extremity Laterality: right S/P cardiac catheterization Z98.890 GERD (gastroesophageal reflux disease) K21.9 Generalized anxiety disorder F41.1 Hypothyroidism E03.9 Stage 2 chronic kidney disease N18.2 Severe obstructive sleep apnea G47.33 Time Spent (min) 35 (2) DVT (deep venous thrombosis) Affected thrombotic vein of extremity: unspecified vein of extremity Chronicity: acute DVT location: lower extremity Laterality: right Qualified Code(s): I82.401 - Acute embolism and thrombosis of unspecified deep veins of right lower extremity
[2022-12-13] MEDS ORDERED: APIXABAN 5 MG TABLET PO SCH (13:00)
--- NOTE | 2022-12-13 14:18 | Discharge Summary ---
Date of Service December 13, 2022 Admission HPI Per Admitting Provider Kin Cazares is a 42-year-old male with a past medical history of NSTEMI s/p cardiac catheterization 12/05/2022 and 12/03, 1x then 1x tend placed and LAD stent patient on re-eval he was placed on DAPT, atorvastatin, metoprolol and was pending H/ARB as tolerated. Patient was seen for follow-up in the ER yesterday with right lower extremity pain at the site of his cardiac catheterization and was found to have extensive DVT extending from the common femoral through the superficial femoral vein, occlusive superficial thrombus in greater saphenous/profunda femoris and CFV junction and a right groin arterial pseudoane urysm. Kin is seen at the bedside. He reports he has had no chest pain since his catheterization. He has had leg swelling for approximately 1 week and more redness in his leg for 1 day. He had bruising which expanded over to the groin this has been improving. He has no numbness/tingling in his leg, but reports the light leg is more swollen than the left. He has had a feeling of difficulty catching his breath and breathing a little heavier in the last several days, but denies actual shortness of breath or difficulty breathing. Denies lightheadedness, dizziness, syncope, presyncope. He was seen in the ER for nausea/vomiting which improved with symptomatic care. No melena/bright red blood per rectum. He was started on Eliquis last night which she took, did not take this morning as he had not yet filled his prescription. Was referred to the hospital for evaluation and placed on heparin drip. Has taken metoprolol, has not yet started KWADWO/ARB. Medical History: Reviewed Medications: Reviewed Surgical History: Reviewed Family history: Reviewed Allergies: Reviewed Social History: Denies tobacco/recent alcohol use, denies recreational drug use, denies medical or recreational drug warning Code Status: Full Principal Diagnosis post cath pseudoaneurysm Discharge Exam The patient is awake, alert and oriented 3, well developed and well nourished, normocephalic and atraumatic, lying in bed and in no acute distress. HEENT--PERRL, EOMI, mucous membranes and oropharynx mildly dry Neck--supple. No JVD. No bruits. Thyroid normal, trachea midline, no adenopathy. Heart--normal S1 and S2. No murmurs, rubs or gallops. Lungs--clear bilaterally, no respiratory distress, no accessory muscle use. Abdomen--normal bowel sounds and soft. Mild epigastric and left sided abdominal pain Extremities--no cyanosis or clubbing. No edema. Dermatologic--normal skin turgor, normal color, no abnormal lymph nodes, no rash. Neurologic--cranial nerves II through XII grossly intact. Rheumatologic--normal range of motion. Psychiatric--normal affect. Discharge Data Allergies Allergy/AdvReac Type Severity Reaction Status Date / Time No Known Allergies Allergy Verified 12/11/22 15:21 Consultations 12/11/22 11:27 ED Decision to Admit Stat 12/11/22 16:13 Consult Vascular Surgery Routine Ordered Studies 12/12/22 13:38 arterial duplex LE RT Routine Hospital Course (1) Pseudoaneurysm following procedure: Patient has a history of coronary disease and had a non-STEMI about a week prior. A circumflex stent was placed. He came to the ED for evaluation of right leg swelling and pain. -He was found to have a small pseudoaneurysm at his catheterization site as well as a fairly extensive right leg DVT -Duplex showed pseudoaneurysm of the right groin -Since he is going to be on a blood thinner for his DVT, the decision was made to inject the pseudoaneurysm -He is now s/p succesful injection of the pseudoaneurysm as seen on repeat doppler -Continue Plavix and Eliquis upon discharge -Appreciate vascular (2) DVT (deep venous thrombosis): Found to have Extensive common femoral DVT - Likely Provoked in the setting of recent cardiac cath x2 - Continue home eliquis (3) S/P cardiac catheterization: No chest pain or chest pressure since catheterization and stent placement Hold ASA, continue Brilinta/heparin and anticipate Brilinta + Eliquis on DC Continue metoprolol Has not yet started KWADWO/ARB (4) GERD (gastroesophageal reflux disease): Continue PPI (5) Generalized anxiety disorder: Continue bupropion (6) Hypothyroidism: - TSH elevated, with normal ft4 (7) Stage 2 chronic kidney disease: Noted on chart review Admitting creatinine 0.98, estimated creatinine clearance 122 BMP daily (8) Severe obstructive sleep apnea: CPAP nightly Plan DVT prophylaxis: Heparinized Diet: Disposition: Medical telemetry CODE STATUS: Full code Total Time Total Time Spent Total Time Spent (In Minutes): 35 Discharge Plan Discharge Items Patient Disposition: Home - Self-Care Reason For Visit: postcath pseudoaneurysm, dvt Discharge Diagnosis: post cath pseudoaneurysm Condition on Discharge: Good Activity: Per Instructions section Non-emergency contact: Primary Care Provider Call non-emergency contact if: you have any medication questions and your symptoms worsen Follow-up/Referrals: Wendy Albarran MD [Primary Care Provider] - 12/23/22 11:30 am Diet: Regular Addtl Attending Provider Instructions: Please avoid strenuous activity until you see your PCP for follow up Pending Studies at Discharge: No Stand-Alone Forms: My [employer], Smoking Cessation Medications and DC Order Prescriptions: New clopidogrel 75 mg Tablet 75 mg PO QAM 30 Days Qty: 30 0RF Continued omeprazole 20 mg capsule,delayed release(DR/EC) 20 mg PO QAM Qty: 90 1RF bupropion HCl [Wellbutrin XL] 300 mg tablet extended release 24 hr 300 mg PO QAM Qty: 30 5RF Eliquis 5 mg tablet See Rx Instructions .ROUTE .COMPLEX Qty: 74 0RF Rx Instructions: Take 10 mg (2 tablets) twice daily for day 1 through 7; beginning on day #8 8 5 mg (1 tablet) twice daily nitroglycerin [Nitrostat] 0.4 mg Tablet, Sublingual 0.4 mg sublingual Q5M PRN (Reason: chest pain) Qty: 25 3RF metoprolol tartrate 25 mg Tablet 25 mg PO BID Qty: 60 11RF atorvastatin 80 mg tablet 80 mg PO HS Qty: 30 0RF ondansetron 4 mg tablet,disintegrating 4 mg PO Q6H PRN (Reason: nausea and vomiting) Qty: 30 0RF Discontinued Brilinta 90 mg tablet 90 mg PO BID Qty: 60 0RF Discharge Orders: Discharge Order (Routine); Ordered 12/13/22 Ordered By: Herlinda Johnston Admission Data Admit Date/Time: 12/11/22 12:37 Attending Provider: Herlinda Johnston Admit Provider: Gil Magana Primary Care Provider: Wendy Albarran Other Providers: Gil Magana ; Yung,Augusto R. Coding Level of Care Code 11591 INP/OBS DISCH >30 MIN Diagnoses Pseudoaneurysm following procedure T81.718A; I72.9 DVT (deep venous thrombosis) I82.401 Affected thrombotic vein of extremity: unspecified vein of extremity Chronicity: acute DVT location: lower extremity Laterality: right S/P cardiac catheterization Z98.890 GERD (gastroesophageal reflux disease) K21.9 Generalized anxiety disorder F41.1 Hypothyroidism E03.9 Stage 2 chronic kidney disease N18.2 Severe obstructive sleep apnea G47.33 Time Spent (min) 35
--- NOTE | 2022-12-13 23:16 | Vascular Medicine ProgressNote ---
Date of Service December 13, 2022 Assessment & Plan (1) Pseudoaneurysm: Plan: 2. Right common femoral/femoral vein DVT 3. Coronary artery diseasepost PCI with LINH to LAD, circumflex 4. Hypertension 5. Dyslipidemia Pseudoaneurysm appropriately closed on repeat ultrasound following thrombin injection yesterday. Right lower extremity pain improved. From a cardiovascular standpoint okay with discharge today. Heparin stopped this morning. Start acute DVT dose Eliquis. Home on dual therapy with Eliquis and clopidogrel. Plan for Eliquis for at least 6 months. Repeat limited ultrasound of right OFFICE [employer] SELECTOR next week. -Cardiac follow-up with Dr. Kennedy as scheduled Admission and Anticipated Discharge Date Admission Date: December 11, 2022 Subjective patient seen and examined, by the bedside, no new complaints. States leg feels much better. Able to walk to bathroom without as much pain. Ready to go home Review of Systems Review of Systems: All systems reviewed & are unremarkable except as noted in HPI & below Physical Exam Physical Exam: General: Comfortable HEENT: Sclerae anicteric Lungs: Clear to auscultation bilaterally, no crackles or wheezes Cardiac: Regular rate and rhythm, no murmurs. Abdomen: Soft, nontender Neuro: Nonfocal Psych: Alert orient x3, normal affect and mood Extremities/vascular: Ecchymosis extending across pelvis into the groin/scrotum and around to right flank. Mild erythema along right inner thigh. Thigh swollen. 2+ right OFFICE [employer] SELECTOR pulse, 2+ popliteal pulse, 2+ DP, PT pulse, normal capillary refill Results & Data Vital Signs (Past 12 Hours) Vital Signs Temp Pulse Pulse Resp BP Pulse Ox O2 Del Method 12/13/22 14:35 97.5 F L 68 67 18 130/85 96 12/13/22 11:30 97.5 F L 67 18 130/85 96 Room Air PG Care Time/CCT Total # of Minutes Spent Total Time Spent with Patient: Total time spent is greater than 50% in coordination of care (as documented) at patient's floor/unit and/or counseling patient: Coding Level of Care Code 75326 SUB INP/OBS CARE 2/35MIN Diagnoses Pseudoaneurysm I72.9
[2022-12-14] MEDS ORDERED: CLOPIDOGREL BISULFATE 75 MG TAB PO SCH (09:00)
[2022-12-20] MEDS ORDERED: APIXABAN 5 MG TABLET PO SCH (09:00)
== END 2022-12-13 15:30 | disposition home or self-care (01) ==
LOC: 2W 10:58 → ED 10:58 → SUATTDRO 12:37 → 2W 15:51